=== PATIENT | male | born 1940 | race Caucasian/White ===

== ENCOUNTER → 2019-05-20 09:21 | Outpatient (CLI) | payer MEDICARE, OTHER, SELFPAY ==
--- NOTE | 2019-05-20 | DI.CT.S_ITS ---
PROCEDURE: CT CHEST WO CON INDICATIONS: LUNG NODULE TECHNIQUE: Noncontrast 2.0-2.5 mm thick sections acquired from the pulmonary apices to the posterior costophrenic angles. 7 mm thick axial MIP and 5 mm coronal and sagittal reformats were then acquired. A low radiation dose technique was utilized. COMPARISON: [facility], US, THYROID, 01/19/2017, 8:40. [facility], CT, THORAX WITHOUT CONTRAST, 08/09/2015, 9:50. [facility], CT, THORAX WITHOUT CONTRAST, 01/02/2017, 8:23. [facility], CR, CHEST 2 VIEW, 01/19/2017, 8:49. FINDINGS: Image quality: Diagnostic, given the low radiation dose technique. Lungs and pleura: No acute consolidation. Scattered subsegmental atelectasis and/or scarring. Upper lobe predominant centrilobular emphysema. Additional emphysematous changes seen in the right lung base. No pleural effusion or pneumothorax. Redemonstration of 2 mm pulmonary nodule in the subpleural right upper lobe, unchanged. Redemonstration of tree-in-bud opacities involving the posterior right upper lobe is grossly unchanged appearance presumably postinflammatory nature. 2 mm nodule seen within the left lung base image 265 series 3 appears unchanged. Mediastinum: Heart size is normal. No pericardial effusion. No mediastinal adenopathy by size criteria. Thoracic aorta and central pulmonary arteries are normal in size. Esophagus is normal in caliber. No hiatal hernia. Bones and chest wall: No suspicious bony lesions. No vertebral body compression fractures. No axillary or supraclavicular adenopathy by size criteria. Thyroid gland demonstrates heterogeneous appearance bilaterally better seen on prior comparison ultrasounds; please see reports. Abdomen: Visualized upper abdomen solid organs and bowel loops appear normal in the absence of contrast. IMPRESSION: Unchanged subpleural 2 mm bilateral pulmonary nodules as detailed above. No further followup necessary for these findings, stable. Elsewhere, no discrete pulmonary nodule or acute consolidation. As clinically warranted, continued annual lung CT screening could be performed. Upper lobe centrilobular emphysema. Fleischner Society criteria for SOLID lung nodule followup. Nodule size (mm)Low-risk patientHigh-risk patient<6 (single or multiple)No routine followup.Optional CT at 12 months. 6-8 (single or multiple)CT at 6-12 months, then optional CT at 18-24 mo.CT at 6-12 months, then CT at 18-24 months. >8 (single)CT at 3 months, PET-CT, or biopsy. Same as for low-risk pts. >8 (multiple)CT at 3-6 months, then optional CT at 18-24 mo.CT at 3-6 months, then CT at 18-24 months. Fleischner Society criteria for SUB-SOLID lung nodule followup. Solitary pure ground-glass nodules<6 mm (ground glass or part solid)No followup needed. 6 mm or larger (ground glass)CT at 6-12 months to confirm persistence, then CT every 2 years until 5 years.6 mm or larger (part solid)CT at 3-6 months to confirm persistence, then annual CT until 5 years if unchanged and solid component remains <6 mm. Multiple sub-solid nodules<6 mmCT at 3-6 months, then CT consider at 2 & 4 years for high risk patients. [address] at 3-6 months. Subsequent management based on most suspicious lesions. Recommendations do not apply to lung cancer screening, patients with immunosuppression, or patients with known primary cancer. Dictated by: Kaiden White M.D. on 05/20/2019 at 10:10 Approved by: Kaiden White M.D. on 05/20/2019 at 10:17
== END ==
PROVIDERS: PCP Physician Assistant; Visit Provider Physician Assistant
DX: R91.1 Solitary pulmonary nodule (principal); R91.8 Other nonspecific abnormal finding of lung field; J43.2 Centrilobular emphysema
CPT/HCPCS: 71250

== ENCOUNTER 2019-11-22 07:38 | Day surgery (SDC) | payer MEDICARE, OTHER, SELFPAY ==
[2019-11-22] VITALS (7 sets, daily range): BP systolic 118–152; BP diastolic 78–92; PULSE 74–88; RESP 12–18; TEMP 36.1–36.7; O2SAT 94–99; BMI 22.0
--- NOTE | 2019-11-22 | PATH_ITS ---
[facility] Accession Number: [id number] . 01 Material submitted: . PART A: colon - BIOPSY AT 40 CM PART B: colon - BIOPSY AT 50 CM PART C: colon - BIOPSY AT 20 CM PART D: rectum - RECTAL POLYPS X7 . 02 Diagnosis: A. Colon at 40 cm, Biopsy: Hyperplastic polyp. . B. Colon at 50 cm, Biopsy: Colonic mucosa with focal mucosal hyperplasia. Negative for dysplasia or malignancy. Additional step sections examined. . C. Colon at 20 cm, Biopsy: Hyperplastic polyp. . D. Rectal Polyps, Biopsies: Fragments of hyperplastic polyp (seven polyps removed). [facility] 11/24/2019 1407 Local . 02 Electronically signed: . Prosper Stauffer MD, PhD, Pathologist NPI- [id number] . 01 Gross description: . Part A: BIOPSY AT 40 CM: Received in formalin are 2 fragment(s) of hunter, soft tissue measuring 0.2 x 0.2 x 0.2 cm to 0.3 x 0.2 x 0.2 cm submitted entirely in 1 cassette(s) Part B: BIOPSY AT 50 CM: Received in formalin are 2 fragment(s) of hunter, soft tissue measuring 0.2 x 0.2 x 0.2 cm to 0.3 x 0.3 x 0.2 cm submitted entirely in 1 cassette(s) Part C: BIOPSY AT 20 CM: Received in formalin is 1 fragment(s) of hunter, soft tissue measuring 0.3 x 0.3 x 0.2 cm submitted entirely in 1 cassette(s) Part D: RECTAL POLYPS X7: Received in formalin are multiple fragment(s) of hunter, soft tissue measuring 0.1 x 0.1 x 0.1 cm to 0.3 x 0.2 x 0.2 cm submitted entirely in 1 cassette(s) /[facility] 11/22/2019 1942 Local . 02 Pathologist provided ICD-10: K63.5, K62.1 . 02 CPT . 907315, 824590, 878303, [id number] Performed at: 01 [facility] [address] [place] [address], [place], [place] [id number] MD Jimi Cedeño MD Phone: [phone] Performed at: 02 [facility] [address] [place], [place] [id number] MD Mady Bassett MD Phone: [phone]
[2019-11-22] MEDS: FLEETS ENEMA 1 EACH PR (08:15)
[2019-11-22] MEDS: SODIUM CHLORIDE 0.9% 1,000 ML 200 ML IV (09:00)
--- NOTE | 2019-11-22 09:14 | P.HP_ITS ---
History of Present Illness History of Present Illness Date Patient Seen: 11/22/19 Time Patient Seen: 09:00 Chief complaint: [id number] Narrative: The patient is a gentleman here for a screening colonoscopy. His last exam was over 15 years ago. No family history of colon cancer. No blood in his stool. Patient History Medical History Obstructive sleep apnea of adult (Chronic) Snoring (Chronic) Family & Social History Social History: household members spouse lives independently Yes caregiver/support person No Tobacco & Substance use: Tobacco type cigarettes Smoking Status Current every day smoker Smoking packs per day 1 alcohol intake current alcohol intake frequency a few times a week Substance Use Type does not use Meds Home Medications and Allergies Home Medications Medication Instructions Recorded Confirmed Type ascorbic acid (vitamin C) 500 mg PO DAILY #0 02/24/11 11/22/19 History Respironics DreamStation BIPAP #1 ea 11/30/18 11/30/18 History bupropion HCl 150 mg PO DAILY 11/22/19 11/22/19 History Allergies Allergy/AdvReac Type Severity Reaction Status Date / Time Sulfa (Sulfonamide AdvReac Unknown ITCHING Verified 11/22/19 07:55 Antibiotics) Review of Systems Review of Systems ROS: Yes All systems reviewed with the patient and are negative except as otherwise documented Exam Vital Signs (past 8 hours): - 11/22/19 08:03 Temperature 96.9 F L Pulse Rate 85 Respiratory Rate 15 Blood Pressure 152/82 H Pulse Oximetry 99 Oxygen Delivery Method Room Air Narrative Exam Narrative: Pleasant cooperative patient no apparent distress. Lungs are clear to auscultation. No rales or rhonchi. Heart regular rate and rhythm no murmur gallop. Abdomen is soft nontender without mass. The patient may have a tiny umbilical hernia (the appearance suggests a hernia but I cannot feel an actual defect). If present it is easily reducible and nontender. Patient is a lert and oriented x3. Assessment & Plan Assessment & Plan narrative: The patient for a screening colonoscopy. I have discussed the procedure with them. Risks of bleeding, perforation which would necessitate major operation, failure to find remove all lesions, the potential tattoo were all discussed. All questions were answered. They wished to proceed.
--- NOTE | 2019-11-22 09:18 | PM.PREOP ---
Pre-operative Note Interval Note History & Physical reviewed/Exam performed by Physician: Yes Changes to H&P: No ASA Class (for procedural sedation): I
[2019-11-22] MEDS: MIDAZOLAM 5 MG/5 ML VIAL IV (09:59)
[2019-11-22] MEDS: fentaNYL 250 MCG/5 ML INJ IV (10:00)
--- NOTE | 2019-11-22 10:06 | PM.OP.ENDO ---
Operative Date/Time/Diagnoses Date of procedure: 11/22/19 Time of procedure: 10:00 Pre-op diagnosis: Screening exam. Last exam over 15 years ago. Post-op diagnosis: same (Numerous polyp like lesions. Heaviest concentration the rectum. Pancolonic diverticulosis.) Procedure & Clinicians Study performed: Colonoscopy with cold biopsy Same procedure as scheduled: Yes Indications: Screening Surgeon: Brain Tovar Procedure Notes SCOAP/Timeout: Perform Procedure in detail: The patient was placed in the left lateral decubitus position and underwent IV sedation directed by the surgeon consisting of fentanyl and Versed. Digital exam was unremarkable except for small external hemorrhoid. Prostate is normal.. The scope was inserted and advanced through the rectum into the sigmoid, descending, transverse, and ascending colon. I noted polypoid lesions in the rectum as I passed through it. I also noted some abnormal folds in the sigmoid in a field of diverticuli. The mucosa was not necessarily different but the folds gave the appearance of a possible polyp and so I took single biopsies of these areas not trying to remove the entire thing. I submitted these in a separate container and if they are neoplastic patient will probably need a flexible sigmoidoscopy to completely remove them. I was very concerned given the numerous diverticuli around them that I could be potentially disrupting the mucosa of 1 of them. Thus I limited my tissue removal.. The cecum was reached identified by the ileocecal valve and the appendiceal opening. The scope was gradually brought out. No other Polyps were found. When I reach the rectum I biopsied the numerous flat irregularities I had seen on entering. These were removed. There were 7 lesions removed. If these are neoplastic patient should have a repeat colonoscopy in a year. The scope ultimately was retroflexed in the rectum. The appearance was otherwise normal. The scope was removed and the patient tolerated the procedure well. The prep was good. Scope withdrawal time: 10 minutes(19 total) Sedation minutes: 36 Findings: diverticulosis and polyp Specimen(s): other (Polyps) Complications: none Post-procedure Recommendations: Colonscopy in 5 years (In 1 year if the lesions in the rectum are neoplastic or if the lesions at 40 cm are neoplastic flex sig within 3 months to remove any residual lesion.) Plan for aftercare: Follow-up by letter/possible phone Follow up: as needed Disposition: PACU
--- NOTE | 2019-11-22 10:21 | SUR.PHASEI ---
Patient A\O x 4. Tolerating po. Denies pain and nausea.
== END 2019-11-22 10:50 | disposition home or self-care (01) ==
PROVIDERS: PCP Physician Assistant; Referring Provider Physician Assistant; Visit Provider Specialist
PROC: 0DJD8ZZ Inspection of Lower Intestinal Tract, Via Natural or Artificial Opening Endoscopic (ICD-10-PCS; CPT 45378; principal; 2019-11-22 08:45)
DX: Z12.11 Encounter for screening for malignant neoplasm of colon (principal); K57.30 Diverticulosis of large intestine without perforation or abscess without bleeding; K63.5 Polyp of colon; K62.1 Rectal polyp
CPT/HCPCS: 45380; 99152; 99153; J2250; J3010

== ENCOUNTER → 2019-12-28 13:04 | Outpatient (CLI) | payer MEDICARE, OTHER, SELFPAY ==
--- NOTE | 2019-12-28 | DI.RAD.S_ITS ---
PROCEDURE: FL BARIUM SWALLOW W SPEECH INDICATIONS: Dysphagia TECHNIQUE: Examination was conducted in conjunction with speech pathology per standard protocol. In the lateral projection, filming was performed of the patient swallowing. AP projection filming may also be performed with patient swallowing. COMPARISON: None. FINDINGS: Function: The oral preparatory phase appears normal, with early spillage of contrast material. The subsequent oral propulsive phase, pharyngeal phase, and esophageal phase of swallowing also appear normal with all proffered substances. Numerous occasions of flash laryngotracheal penetration. No definite tracheal aspiration. Severe vallecular pooling. Large amount of residue also noted within both piriform sinuses. Morphology: No cricopharyngeal bar is identified. No cervical esophageal webs. No Zenker's diverticulum. No strictures. IMPRESSION: Flash laryngeal penetration. No definite tracheal aspiration Large amount of residue and vallecular pooling. Dictated by: Kaiden White M.D. on 12/28/2019 at 14:53 Approved by: Kaiden White M.D. on 12/28/2019 at 14:54
--- NOTE | 2019-12-30 14:06 | ST.SWALLOW ---
Visit Care Team Role Provider Type Anais Holcomb MD Attending Provider Non-Staff Primary Care Provider Referring Provider Specialty: Internal Medicine Address: [address] [place] [address], [id number] Email: [email or web address] Modified Barium Swallow Study HEAD OF DATA Modified Barium Swallow Study Start: 12/28/19 15:19 Freq: Status: Active Protocol: Document 12/28/19 15:23 ZHANE (Rec: 12/28/19 15:41 ZHANE [id number]) Modified Barium Swallow Study Total Time Visit Start Time 13:30 Visit Stop Time 14:10 Total Visit Minutes [address] Anais Holcomb Setting Setting Outpatient Care Patient Information Identification Type Name,ID Card Patient History The pt is a 79-yr-old male with complaints of frequent coughing (3-4x/day) with oral intake of solids and liquids. Onset ~6 mos ago. No significant other health events at time of onset, but pt reported also having increase post-nasal drip and phlegm, which he felt was present at the time of the study. The pt is a current everyday smoker of cigarettes. PMHx significant for depression and obstructive sleep apnea. He had surgical removal of tonsils to reduce snoring >10 yrs ago. Subjective Observations The pt arrived on time and provided case history. He was informed of MBSS procedure and in agreement to proceed. Patient Positioning Position View Lat-A/P Imaging Lateral View Textures Administered Trials Presented Thin Liquid via Spoon,Thin Liquid via Cup,[place] Liquid via Spoon,[place] Liquid via Cup,Honey Liquid via Spoon, Pudding Thick Liquid via Spoon ,Regular Textures Oral Phase Source: MBSIMP (TM) (C) Bolus Specific Scoring Grid Lip Closure No Impairment (WNL) Tongue Control During Bolus Hold No Impairment (WNL) Bolus Prep/Mastication Moderate Impairment Bolus Transport/Lingual Motion Moderate Impairment A/P Lingual Propulsion Delay Yes: spillage to pharynx prior to propulsion Oral Residue Mild Impairment Residue Clearing WFL Nasal Regurgitation No Additional Oral Phase Observations Oral Peripheral Exam: Symmetrical structures, all WNL of strength, coordination and ROM. Absent uvula and tonsils. High arch. Soft palate elevates fully upon phonation. Pt wears full upper dentures. Lower teeth are natural and in adequate condition for age. Oral Phase: Pt swallowed most trials, including single cup sips of liquids, piecemeal in 2-3 swallows. Reduced lingual strength and coordination, particularly at back of tongue , and delayed swallow reflex allows for early spillage to the pharynx prior to swallow onset. Mild-moderate oral residue also escapes to pharynx post initial swallow, frequently spilling to as far as aryepiglottic folds and pyriform sinuses. With subsequent swallows, the pt is able to effectively clear oral residue. Mastication and anterior oral containment were WNL. Pharyngeal Phase Source: MBSIMP (TM) (C) Bolus Specific Scoring Grid Delayed Initiation of Pharyngeal Swallow Yes Soft Palate Elevation No Impairment (WNL) Residue Along the Tongue Base Yes: Moderate, consistent Clearance of Residue Along Tongue Base Moderate Impairment Laryngeal Elevation WFL Anterior Hyoid Movement Moderate Impairment Epiglottic Range of Motion Moderate Impairment Vallecular Residue Yes Clearance of Vallecular Residue Severe Impairment Pharyngeal Stripping Wave Moderate Impairment Posterior Pharyngeal Wall Residue Yes Clearance of Posterior Pharyngeal Wall Moderate Impairment Residue Upper Esophageal Sphincter Opening Mild Impairment Residue in the Pyriform Sinuses Yes Clearance of Residue in the Pyriform Moderate Impairment Sinuses Pharyngoesophageal Backflow Observed No Additional Pharyngeal Phase Observations Flash penetration observed with single sips of thin liquid, PAS-2. Penetration of thin liquid with consecutive sips and penetration of pharyngeal residue observed intermittently throughout the study, PAS-3. No aspiration observed. Significant pharyngeal residue was present throughout the study with all consistencies. Contributors to this residue include spillage from of oral cavity residue post-swallow; minimal anterior propulsion with subsequent incomplete epiglottic inversion ( epiglottis inverts to horizontal position); minimal pharyngeal stripping wave with reduced contact between base of tongue and pharyngeal contractors; and limited extent and duration of UES opening. The pt required multiple swallows to attempt to clear residue, which was not fully successful. A/P View Textures Administered Trials Presented [place] Liquid via Cup,Pudding Thick Liquid via Spoon,Barium Tablet A/P View Observations Pharyngeal Contraction Moderate Impairment Esophageal Function Slowed Clearing,Poor Motility, Stasis Additional Observations Bilateral bulging of both pharyngeal masterson Esophageal Observations Esophageal Function Slowed clearance of boluses indicating poor motility. 13mm barium tablet cleared to stomach with aid of additional swallows of liquid and saliva . Clinical Impressions Dysphagia Type Moderate Oropharyngeal Dysphgai Findings Mild-moderate oral dysphgia secondary to reduced lingual strength and coordination resulting in early spillage of bolus and oral residue to pharynx. Oral residue requires multiple swallows to effectively clear. Moderate pharyngeal dysphagia secondary to reduced strength, coordination and/or ROM of anterior hyolaryngeal propulsion, pharyngeal contraction and extent and duration of UES opening results in significant pharyngeal residue that does not fully clear with multiple swallows, and incomplete airway closure allowing for penetration of thin liquids and pharyngeal residue. The pt is at moderate risk of aspiration and requires use of compensatory swallow strategies to reduce this risk . Dysphagia therapy is recommended to increase swallow function and safety. Also recommend GI consultation to assess esophageal swallow phase and ENT consultation to address pt's complaints of excessive phlegm. The pt was educated on results of study and recommendations, including compensatory swallow strategies and outpatient therapy, which he verbalized understanding. Rehabilitation Potential Good Patient Appropriate for Therapy Yes Recommendations Diet Liquids Order Thin Diet Order Regular Medication Recommendation As Tolerated Aspiration Precautions Recommended Precautions Upright at 90 Degrees,Small Bites/Sips,Effortful Swallow, Double Swallow Treatment Plan Therapy Recommendations Outpatient Speech Therapy,Oral Motor Exercises,Lingual Exercises,Base of Tongue Exercises,Compensatory Strategy Education,Other Additional Therapy Recommendations Exercises to strengthen pharyngeal and laryngeal musculature Recommended Referrals GI Consult,ENT Consult Compensatory Strategies Recommendations Sitting Upright (90 deg), Double Swallow,Small Bites and Sips Short Term Goals 1. The pt will perform compensatory swallow strategies to reduce risk of aspiration. 2. The pt will perform exercises to increase strength , coordination and ROM of swallow musculature and increase safety and comfort with oral intake. Single Fold Machine Operator Goals 1. The pt will demonstrate independent use of compensatory swallow strategies and exercises to increase swallow safety and comfort. 2. The pt will tolerate least restrictive diet to meet his nutrition and hydration needs. Placement Recommendation After Discharge Home
== END ==
PROVIDERS: PCP Internal Medicine; Referring Provider Internal Medicine; Visit Provider Internal Medicine
DX: R13.10 Dysphagia, unspecified (principal)
CPT/HCPCS: 74230; 92611

== ENCOUNTER → 2019-12-29 07:05 | Outpatient (CLI) | payer MEDICARE, OTHER, SELFPAY ==
--- NOTE | 2019-12-29 | DI.MRI.S_ITS ---
PROCEDURE: MR HEAD/BRAIN WO/W CON INDICATIONS: DIPLOPIA TECHNIQUE: Noncontrast axial T1 spin echo, axial T2 fast spin echo, sagittal and axial FLAIR, coronal T2 fast spin echo, axial gradient echo, axial diffusion and ADC through the brain. After the administration of contrast, axial and coronal T1 spin echo with fat saturation through the brain. COMPARISON: None. FINDINGS: Image quality: Excellent. CSF spaces: Basal cisterns are patent. There is a 1.9 cm arachnoid cyst in the right posterior fossa at the midline. No extra-axial fluid collections. Ventricles are normal in size and shape. Brain: There is an old lacunar infarct in the left thalamus. No midline shift. No intracranial bleeds or masses. No abnormal intracranial enhancement. There is mild cerebral volume loss for age. There are moderate chronic small vessel ischemic changes in periventricular white matter and edison. The brainstem appears normal. Diffusion-weighted images demonstrate no acute ischemic insults. No chronic ischemic insults. Normal intravascular flow voids are present. Skull and face: Calvarial marrow is normal in signal. Orbits appear normal. Sinuses: Small mucous retention cyst in the ethmoid sinuses bilaterally. The mastoids appear clear. IMPRESSION: 1. No MRI findings to explain diplopia. 2. 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 3. No acute intracranial abnormalities. 4. Cerebral volume loss and chronic microvascular ischemic changes. 5. Small ethmoid sinus mucus retention cyst. Dictated by: Vito Sheth M.D. on 12/29/2019 at 9:33 Approved by: Vito Sheth M.D. on 12/29/2019 at 14:56
--- NOTE | 2019-12-29 | DI.US.S_ITS ---
PROCEDURE: US CAROTID DOPPLER BI INDICATIONS: DIPLOPIA TECHNIQUE: Color and pulse Doppler interrogation was performed of both carotid systems, with image documentation and velocity measurements. COMPARISON: None. FINDINGS: Stenosis calculations are based on SRU (Society of Radiologists in Ultrasound) criteria. Right side: Brachial blood pressure: 153/84 mm Hg. Common carotid artery peak systolic velocity: 82 cm/sec. Internal carotid artery peak systolic velocity: 75 cm/sec. Internal carotid artery end diastolic velocity: 26 cm/sec. External carotid artery peak systolic velocity: 79 cm/sec. ICA/CCA peak systolic ratio: 0.9. Cheema scale imaging description: Mild calcific plaque Percent internal carotid artery stenosis: Less than 50% stenosis.. Vertebral artery: Flow direction is antegrade. Left side: Brachial blood pressure: 143/84 mm Hg. Common carotid artery peak systolic velocity: 93 cm/sec. Internal carotid artery peak systolic velocity: 70 cm/sec. Internal carotid artery end diastolic velocity: 27 cm/sec. External carotid artery peak systolic velocity: 80 cm/sec. ICA/CCA peak systolic ratio: 0.8. Cheema scale imaging description: Mild calcific plaque Percent internal carotid artery stenosis: Less than 50% stenosis. Vertebral artery: Flow direction is antegrade. IMPRESSION: Less than 50% stenosis at the proximal internal carotid arteries bilaterally. Dictated by: Jonathan Gannon M.D. on 12/29/2019 at 10:48 Approved by: Jonathan Gannon M.D. on 12/29/2019 at 10:50
--- NOTE | 2019-12-29 | DI.MRI.S_ITS ---
PROCEDURE: MR ANGIO HEAD WO CON INDICATIONS: DIPLOPIA TECHNIQUE: Noncontrast axial 3-D [id number] MR angiogram, with 3-dimensional maximum intensity projection (MIP) reformats of the internal carotid arteries and posterior circulation then performed. COMPARISON: [facility], , MR HEAD/BRAIN WO/W CON, 12/29/2019, 7:54. FINDINGS: Image quality: Excellent. Anterior circulation: Intracranial internal carotid arteries demonstrate normal size and intraluminal flow signal. The flow within the paired anterior cerebral arteries is normal and symmetric. The flow within the middle cerebral arteries is normal and symmetric. The anterior communicating artery is seen. No stenoses, occlusions, or aneurysms. Posterior circulation: Visualized portions of the vertebral arteries demonstrate normal caliber, and join to form a normal appearing basilar artery. There is origin of the left posterior cerebral artery. The flow within the posterior cerebral arteries is normal and symmetric. No stenoses, occlusions, or aneurysms. IMPRESSION: 1. No significant stenosis or occlusion in anterior or posterior circulations. Dictated by: Vito Sheth M.D. on 12/29/2019 at 10:09 Approved by: Vito Sheth M.D. on 12/29/2019 at 15:02
== END ==
PROVIDERS: PCP Internal Medicine; Referring Provider Internal Medicine; Visit Provider Internal Medicine
DX: H53.2 Diplopia (principal); J34.1 Cyst and mucocele of nose and nasal sinus; I65.23 Occlusion and stenosis of bilateral carotid arteries
CPT/HCPCS: 70544; 70553; 93880; A9579

== ENCOUNTER → 2020-05-15 13:04 | Outpatient (CLI) | payer MEDICARE, OTHER, SELFPAY ==
--- NOTE | 2020-05-15 | DI.RAD.S_ITS ---
PROCEDURE: FL BARIUM SWALLOW W SPEECH INDICATIONS: Dysphagia, unspecified COMPARISON: TECHNIQUE: Examination was conducted in conjunction with speech pathology per standard protocol. In the lateral projection, filming was performed of the patient swallowing. AP projection filming may also be performed with patient swallowing. COMPARISON: [facility], , [place] BARIUM SWALLOW W SPEECH, 12/28/2019, 12:33. FINDINGS: Function: The oral preparatory phase appears normal, with proper containment. The subsequent oral propulsive phase, pharyngeal phase, and esophageal phase of swallowing also appear normal with all proffered substances. Tracheal aspiration is present within thin liquid barium. There is a large amount of residue present. Morphology: No cricopharyngeal bar is identified. No cervical esophageal webs. No Zenker's diverticulum. No strictures. IMPRESSION: Tracheal aspiration Dictated by: Kaiden White M.D. on 05/15/2020 at 14:57 Approved by: Kaiden White M.D. on 05/15/2020 at 14:58
--- NOTE | 2020-05-16 16:41 | ST.SWALLOW ---
Visit Care Team Role Provider Type Anais Holcomb MD Attending Provider Non-Staff Primary Care Provider Referring Provider Specialty: Internal Medicine Address: [address] [place] [address], [address] Email: [email or web address] Modified Barium Swallow Study GLASS SANDER Modified Barium Swallow Study Start: 05/16/20 08:43 Freq: Status: Active Protocol: Document 05/15/20 12:41 LNK (Rec: 05/16/20 13:27 LNK [id number]) Modified Barium Swallow Study Total Time Visit Start Time 13:30 Visit Stop Time 14:00 Total Visit Minutes [address] Sayda Holcomb Reason for Referral dysphagia Setting Setting Outpatient Care Patient Information Identification Type Name,Date of Patient History The pt is a 79-yr-old male who was seen 12/28/19 for MBSS evaluation. Pt then had and continues to have c/o coughing particularly with food, if talking while eating, and if not sitting fully upright. MBS results revealed mild- moderate oral and moderate pharyngeal dysphagia characterized by early spillage from oral to pharyngeal cavities, incomplete airway closure, incomplete epiglottic inversion, reduced duration of UES extension and resulting in penetration of contrast without aspiration, and extensive pharyngeal residue. The pt reports occasional coughing up of food residue at night when performing oral care. The pt has been seen for Dysphagia treatment since 03/07. Therapeutic exercises were performed to improve hyolaryngeal elevation and forward movement and increase stregth of the tongue base. These exercises are designed to improve airway protection. Subjective Observations The pt was seated in the flouroscopy chair. He was familiar with the procedure and instructions, which were reviewed. Pt agreed to proceed . Patient Positioning Position View Lateral Imaging Lateral View Textures Administered Trials Presented Thin Liquid via Spoon,Thin Liquid via Cup,[place] Liquid via Spoon,[place] Liquid via Cup,Regular Textures,Barium Tablet Oral Phase Source: MBSIMP (TM) (C) Bolus Specific Scoring Grid Lip Closure WFL Tongue Control During Bolus Hold WFL Bolus Prep/Mastication WFL Bolus Transport/Lingual Motion WFL A/P Lingual Propulsion Delay Yes Nasal Regurgitation No Additional Oral Phase Observations Premature spillage into pharynx Pharyngeal Phase Source: MBSIMP (TM) (C) Bolus Specific Scoring Grid Delayed Initiation of Pharyngeal Swallow Yes: Premature spillage to the valeculla. Mild delay Soft Palate Elevation WFL Tongue Base Strength/Range of Motion Severe Impairment Residue Along the Tongue Base Yes Clearance of Residue Along Tongue Base Moderate Impairment Laryngeal Elevation Minimal Impairment Anterior Hyoid Movement Severe Impairment Epiglottic Range of Motion Severe Impairment Vallecular Residue Yes Clearance of Vallecular Residue Severe Impairment Laryngeal Vestibular Closure Moderate Impairment Pharyngeal Stripping Wave Severe Impairment Posterior Pharyngeal Wall Residue Yes Clearance of Posterior Pharyngeal Wall Moderate Impairment Residue Upper Esophageal Sphincter Opening Minimal Impairment Residue in the Pyriform Sinuses Yes Clearance of Residue in the Pyriform Moderate Impairment Sinuses Esophageal Clearance Upright Position WFL Additional Pharyngeal Phase Observations The pt presented with moderate to severe pharyngeal phase dysphagia. The pt aspirated ~ 7 times during the evaluation. For the first teaspoon, there was marcela aspiration noted. Other instances of aspiration occurred with pharyngeal residue pushed into the vestibule. Aspiration also occurred with thin liquids as well as with nectar thick liquids. Hyolaryngeal elevation was WFL; however there was no hyoid excursion forward. This prevents the forward movement needed in order to invert the epiglottis fully. The pt's epiglottis did not invert completely during the MBS for any PO trial. Rather the tip of the epiglottis curled up against the posterior pharyngeal wall, unable to adequately seal the laryngeal vestibule. Additionally, there was minimal to no pharyngeal constriction to control the bolus through the pharynx to the UES. There was no observed constriction of the medial or inferior constrictors. The superior constrictor was observed to be weakened. Significant pharyngeal pooling . The pt was cued to swallow following each initial swallow 3-4x more per bolus in order to clear some of the residue. When the pt was cued for additional swallows, he reported that he felt that there was nothing in his throat to swallow; but he assumed there was residue as he was being cued so often. When the pt aspirated, he cleared his throat, but did not cough. These observations may indicate reduction in pharyngeal sensation. Finally, when the pt was swallowing liquids, there was a significant amount of air swallowed as well. The pt reported that he is burping all the time'. A/P View Clinical Impressions Dysphagia Type pharyngeal dysphagia Findings When the results of the current MBS were compared to the initial MBS in December 2019. There appears to be a significant regression of overall swallowing ability, despite therapeutic intervention. Currently, aspiration is occurring more frequently, compared to no aspiration initially; there is a minimal to no epiglottic inversion, significantly more residue throughout the pharynx , reduced pharyngeal constriction; especially the medial and inferior constrictor muscles. During the current MBS, trial therapeutic strategies were tried but not demonstrated to be effective. The pt reported no sensation of pharyngeal residue, nor did he respond to aspiration with coughing. He needed 3-4 swallows to clear (partially) the residue in his pharynx. Given the results and clinical impressions presented above, a referral to a neurologist is recommended to determin if there is a neuomuscular component to the regression of pt's swallowing. Patient Appropriate for Therapy Yes Recommendations Diet Liquids Order Thin Diet Order Mechanical Soft Medication Recommendation As Tolerated Additional Dietary Needs Controlled Sips,No Straws, Reminders to Use Strategies Aspiration Precautions Recommended Precautions Upright at 90 Degrees, Alternate Liquids/Solids,Small Bites/Sips,Effortful Swallow, Double Swallow,Supraglottic Swallow,Liquids from Cup Treatment Plan Therapy Recommendations Outpatient Speech Therapy, Lingual Exercises,Base of Tongue Exercises,Compensatory Strategy Education Recommended Referrals Neurology Compensatory Strategies Recommendations Sitting Upright (90 deg), Double Swallow,Supraglottic Swallow,No Straw,Liquids from Cup,Small Bites and Sips, Alternate Liquids/Solids Short Term Goals 1. The pt will perform compensatory swallow strategies independently as needed to reduce risk of aspiration. 2. The pt will perform exercises to increase strength , coordination and ROM of swallow musculature and increase safety and comfort with oral intake. Cork Compounder Goals The pt will tolerate regular texture and thin liquids without overt s/sx of aspiration and with ease and confidence WNL.
== END ==
PROVIDERS: PCP Internal Medicine; Referring Provider Internal Medicine; Visit Provider Internal Medicine
DX: R13.10 Dysphagia, unspecified (principal); J98.8 Other specified respiratory disorders
CPT/HCPCS: 74230; 92611

== ENCOUNTER 2020-06-04 08:30 | Outpatient (RCR) | payer MEDICARE, OTHER, SELFPAY ==
--- NOTE | 2020-03-07 18:02 | ST.OPIE ---
Visit Care Team Role Provider Type Anais Holcomb MD Attending Provider Non-Staff Primary Care Provider Referring Provider Specialty: Internal Medicine Address: [address] [place] [address], [id number] Email: [email or web address] Speech-Language Pathology Initial Evaluation [employer] Clinical Swallow Evaluation Start: 03/07/20 15:35 Freq: Status: Active Protocol: Document 03/07/20 15:36 ZHANE (Rec: 03/07/20 17:35 ZHANE [email or web address]) Clinical Swallow Evaluation Session Time Visit Start Time 15:30 Visit Stop Time 16:00 Total Visit Minutes 30 Visit Information Visit Number 1 Plan of Care Dates 03/07/20 - 06/07/20 Insurance Information Medicare Referral Referring Physician Dr. Anais Holcomb Reason for Referral Dysphagia Setting Assessment Location Outpatient Care Visit Type Note Type Initial Evaluation Next Note Type Next Note Type Treatment Note Patient Information Identification Type Name,ID Card History The pt is a 79-yr-old male who was seen 12/28/19 for MBSS evaluation by this [employer]. Pt then had and continues to have c/o coughing particularly with food, if talking while eating, and if not sitting fully upright. MBS results revealed mild-moderate oral and moderate pharyngeal dysphagia characterized by early spillage from oral to pharyngeal cavities, incomplete airway closure, incomplete epiglottic inversion, reduced duration of UES extension and resulting in penetration of contrast without aspiration, and extensive pharyngeal residue. The pt reports occasional coughing up of food residue at night when performing oral care. Subjective Observations The pt arrived on time and recognized the clinician from MBS. He provided updated case history, reporting no significant changes since MBS. Evaluation Liquids Trialed Thin Solids Trialed Dysphagia Mechanical, Mechanical Soft,Regular Administration Type Cup Single Sip,Cup Consecutive Sips,Self-Feeding Oral Impairment Mildly Impaired Oral Strategies Upright at 90 degrees Oral Phase Comments Good oral containment without abnormal residue. Pt required piece-meal swallow with large bites/sips. Normal mastication , intentionally extended for ease and safety of swallow. Occasional mild throat clearing prior to swallow with mixed texture indicates continued early spillage to pharynx, consistent with MBS findings. Pharyngeal Impairment Moderately Impaired Pharyngeal Strategies Sitting Upright (90 deg), Double Swallow,Small Bites and Sips Pharyngeal Phase Comments Occasional throat clearing before, during and after several trials, both liquids and solids. Pt c/o sticking sensation x1 which improved with liquid wash. Findings Dysphagia Type Mild Oral and Moderate Pharyngeal Dysphagia Rehabilitation Potential Excellent Impressions The pt presents with dysphagia symptoms consistent with MBS report. Able to tolerate regular texture and thin liquids with occasional throat clearing in clinical trials, indicating mild risk of aspiration. Risk reduces with bolt upright position, small bites/sips, solids chewed well , double swallow and liquid wash at end of intake. Diet Recommendations Liquids Order Thin Diet Order Regular Medication Recommendations As Tolerated Aspiration Precautions Recommended Precautions Upright at 90 Degrees,Small Bites/Sips,Effortful Swallow, Double Swallow Additional Precautions Supersupraglottic swallow may be beneficial as needed Treatment Plan Placement Recommendations after Home Discharge Appropriate for Therapy Yes Therapy Recommendations 1. The pt will perform compensatory swallow strategies independently as needed to reduce risk of aspiration. 2. The pt will perform exercises to increase strength , coordination and ROM of swallow musculature and increase safety and comfort with oral intake. Dysphagia Goals The pt will tolerate regular texture and thin liquids without overt s/sx of aspiration and with ease and confidence WNL. [employer] Follow Up 1x/wk for 1-2 visits; 1 visit every 2-3 wks.
--- NOTE | 2020-03-14 10:59 | ST.IPDYTX ---
Visit Care Team Role Provider Type Anais Holcomb MD Attending Provider Non-Staff Primary Care Provider Referring Provider Specialty: Internal Medicine Address: [address] [place] [address], [id number] Email: [email or web address] Dysphagia Treatment SMELTER CHARGER Dysphagia Treatment Start: 03/07/20 15:35 Freq: Status: Active Protocol: Document 03/14/20 10:51 ZHANE (Rec: 03/14/20 10:59 ZHANE [email or web address]) Dysphagia Treatment Session Time Visit Start Time 10:15 Visit Stop Time 10:50 Total Visit Minutes 35 Visit Information Visit Number 2 Plan of Care Dates 03/07/20 - 06/07/20 Insurance Information Medicare Setting Assessment Location Outpatient Care Visit Type Note Type Treatment Note Next Note Type Next Note Type Treatment Note Patient Information Identification Type Name,ID Card Subjective Observations The pt arrived on time. Reported compliance with HEP and continued coughing with oral intake but improvement since starting exercises. He had questions regarding some of the exercises. Treatment Liquids Trialed Thin Solids Trialed Mechanical Soft,Regular Administration Type Cup Single Sip,Cup Consecutive Sips,Self-Feeding Oral Strategies Upright at 90 degrees Pharyngeal Strategies Sitting Upright (90 deg), Double Swallow,Small Bites and Sips Treatment Activities Addressed pt's questions with clarified instruction on exercises. Pt completed exercises as prescribed, demonstrating good understanding. Improved ability with Brenda maneuver observed, with minimal protrusion of tongue tip between teeth. Assessed pt's swallow safety with crumbly cookie and thin liquid from cup. No overt s/sx of aspiration observed. Pt did talk while eating cookie x1. Education provided RE general aspiration risks/ precautions with instruction to avoid talking with food in mouth. Pt verbalized understanding and refrained from talking with subsequent trials. Assessment Patient Response to Treatment Excellent Rehab Potential Excellent Assessment of Improvement Pt demonstrates good understanding of and compliance with HEP, able to perform all exercises as prescribed. No overt s/sx of aspiration with limited trials today. Pt was responsive to education on aspiration risks/ precautions and demonstrated compliance. He is responding well to treatment, observing reduced coughing with intake, although occasional coughing persists. He exhibits excellent awareness and self- monitoring skills. Diet Recommendations Recommendations Continue Current Diet Liquids Order Thin Diet Order Regular Medication Recommendations As Tolerated Aspiration Precautions Recommended Precautions Upright at 90 Degrees,Small Bites/Sips,Effortful Swallow, Double Swallow Additional Precautions Supersupraglottic swallow as needed Treatment Plan Placement Recommendation after Discharge Home Appropriate for Continued Therapy Yes Therapy Recommendations 1. The pt will perform compensatory swallow strategies independently as needed to reduce risk of aspiration. 2. The pt will perform exercises to increase strength , coordination and ROM of swallow musculature and increase safety and comfort with oral intake. Dysphagia Goals The pt will tolerate regular texture and thin liquids without overt s/sx of aspiration and with ease and confidence WNL. Follow Up Plan F/U in 2 wks Referrals/Other Recommended Referrals GI Consult,ENT Consult
--- NOTE | 2020-04-04 09:21 | ST.IPDYTX ---
Visit Care Team Role Provider Type Anais Holcomb MD Attending Provider Non-Staff Primary Care Provider Referring Provider Specialty: Internal Medicine Address: [address] [place] [address], [id number] Email: [email or web address] Dysphagia Treatment BRIDGE CRANE OPERATOR Dysphagia Treatment Start: 03/07/20 15:35 Freq: Status: Active Protocol: Document 04/04/20 09:12 ZHANE (Rec: 04/04/20 09:21 ZHANE [email or web address]) Dysphagia Treatment Session Time Visit Start Time 08:30 Visit Stop Time 09:05 Total Visit Minutes 35 Visit Information Visit Number 3 Plan of Care Dates 03/07/20 - 06/07/20 Insurance Information Medicare Setting Assessment Location Outpatient Care Visit Type Note Type Treatment Note Next Note Type Next Note Type Treatment Note Patient Information Identification Type Name,ID Card Subjective Observations The pt arrived on time. Reported compliance with HEP and much improved swallow, experiencing only 2 episodes of coughing in the last week and reduced, but still present , sticking sensation. Treatment Liquids Trialed Thin Solids Trialed Mechanical Soft,Regular Administration Type Cup Single Sip,Cup Consecutive Sips,Self-Feeding Oral Strategies Upright at 90 degrees Pharyngeal Strategies Sitting Upright (90 deg), Double Swallow,Small Bites and Sips Treatment Activities Education RE potential etiology of dysphagia, swallow exercises and their specific targets toward swallow function was provided in response to pt questions. Oral and animated demonstration was provided RE normal and disordered swallow. Pt verbalized understanding and appreciation of explanations. Assessed pt's swallow with trials of diced fruit, dry cracker and thin liquid. The pt exhibited occasional throat clearing as well as mild cough x1 when talking while eating. The pt reported sticking sensation ~50% of the time, which he said was significantly less than at [facility] . Skilled feedback and recommendations for safety provided. Pt verbalized understanding and agreement with recommendations. Assessment Patient Response to Treatment Excellent Rehab Potential Excellent Assessment of Improvement Pt demonstrates good understanding of and compliance with HEP, able to perform all exercises as prescribed. No overt s/sx of aspiration with limited trials today. Pt was responsive to education on aspiration risks/ precautions and demonstrated compliance. He is responding well to treatment, observing reduced coughing with intake, although occasional coughing persists. He exhibits excellent awareness and self- monitoring skills. Consulted with pt on POC. Pt requested to continue as we have for a couple more months to follow up on progress and address changes and questions in the process. Agreed to visits every 3 weeks. Diet Recommendations Recommendations Continue Current Diet Liquids Order Thin Diet Order Regular Medication Recommendations As Tolerated Aspiration Precautions Recommended Precautions Upright at 90 Degrees,Small Bites/Sips,Effortful Swallow, Double Swallow Additional Precautions Supersupraglottic swallow as needed Treatment Plan Placement Recommendation after Discharge Home Appropriate for Continued Therapy Yes Therapy Recommendations 1. The pt will perform compensatory swallow strategies independently as needed to reduce risk of aspiration. 2. The pt will perform exercises to increase strength , coordination and ROM of swallow musculature and increase safety and comfort with oral intake. Dysphagia Goals The pt will tolerate regular texture and thin liquids without overt s/sx of aspiration and with ease and confidence WNL. Follow Up Plan 1 visit every 3 wks for 3 visits Referrals/Other Recommended Referrals GI Consult,ENT Consult
--- NOTE | 2020-04-24 14:24 | ST.IPDYTX ---
Visit Care Team Role Provider Type Anais Holcomb MD Attending Provider Non-Staff Primary Care Provider Referring Provider Specialty: Internal Medicine Address: [address] [place] [address], [id number] Email: [email or web address] Dysphagia Treatment BRASS FINISHER Dysphagia Treatment Start: 03/07/20 15:35 Freq: Status: Active Protocol: Document 04/24/20 13:25 ZHANE (Rec: 04/24/20 13:28 ZHANE [email or web address]) Dysphagia Treatment Session Time Visit Start Time 12:30 Visit Stop Time 13:05 Total Visit Minutes 35 Visit Information Visit Number 4 Plan of Care Dates 03/07/20 - 06/07/20 Insurance Information Medicare Setting Assessment Location Outpatient Care Visit Type Note Type Treatment Note Next Note Type Next Note Type Treatment Note Patient Information Identification Type Name,ID Card Subjective Observations The pt arrived on time. Reported compliance with HEP and reduced coughing with oral intake. Occasional choking sensation continues to occur. Pt stated, I've had problems for so long, I'm not sure what normal swallowing feels like. Treatment Treatment Activities Pt's questions RE POC and HEP addressed. Discussed and recommended follow-up MBS as instrumental evaluation to best determine progress made, benefit of swallow exercise program, and to guide POC. The pt was in agreement. Reviewed findings of previous MBS with pt. Discussed the recommended referral to GI for esophageal evaluation given the possible slowed clearing seen during MBS. The pt has not received information about this. Agreed BRASS FINISHER would request orders for both Barium and Modified Barium swallow studies from PCP Dr. Anais Holcomb to guide POC. Educated pt in GERD s/sx. The pt experiences frequent throat clearing and occasional coughing, although he acknowledged he is a current heavy smoker, which could contribute. Anticipate evaluation with GI will inform whether or not pt has GERD. Assessment Patient Response to Treatment Excellent Rehab Potential Excellent Assessment of Improvement Pt demonstrates good understanding of and compliance with HEP, able to perform all exercises as prescribed. He is responding well to treatment, observing reduced coughing with intake, although occasional coughing persists. He exhibits excellent awareness and self- monitoring skills. Pt was agreeable to recommendations for further and follow-up evaluations to guide POC. Diet Recommendations Recommendations Continue Current Diet Liquids Order Thin Diet Order Regular Medication Recommendations As Tolerated Aspiration Precautions Recommended Precautions Upright at 90 Degrees,Small Bites/Sips,Effortful Swallow, Double Swallow Additional Precautions Supersupraglottic swallow as needed Treatment Plan Placement Recommendation after Discharge Home Appropriate for Continued Therapy Yes Therapy Recommendations 1. The pt will perform compensatory swallow strategies independently as needed to reduce risk of aspiration. 2. The pt will perform exercises to increase strength , coordination and ROM of swallow musculature and increase safety and comfort with oral intake. Dysphagia Goals The pt will tolerate regular texture and thin liquids without overt s/sx of aspiration and with ease and confidence WNL. Follow Up Plan 1 visit every 3 wks for 3 visits Referrals/Other Recommended Referrals GI Consult
--- NOTE | 2020-05-16 17:31 | ST.IPDYTX ---
Visit Care Team Role Provider Type Anais Holcomb MD Attending Provider Non-Staff Primary Care Provider Referring Provider Specialty: Internal Medicine Address: [address] [place] [address], [id number] Email: [email or web address] NEUROSCIENTIST Dysphagia Treatment NEUROSCIENTIST Dysphagia Treatment Start: 03/07/20 15:35 Freq: Status: Active Protocol: Document 05/16/20 11:33 ZHANE (Rec: 05/16/20 11:48 [email or web address] [email or web address]) Dysphagia Treatment Session Time Visit Start Time 10:30 Visit Stop Time 11:20 Total Visit Minutes 50 Visit Information Visit Number 5 Plan of Care Dates 03/07/20 - 06/07/20 Insurance Information Medicare Setting Assessment Location Outpatient Care Visit Type Note Type Treatment Note Next Note Type Next Note Type Treatment Note Patient Information Identification Type Name,ID Card Subjective Observations The pt arrived on time. The pt stated he has an appointment with PCP, Dr. Anais Holcomb, next week. Follow-up MBS was administered yesterday revealing worsened overall function, including increased aspiration and reduced pharyngeal and laryngeal sensation despite these 2 months of dysphagia therapy and the pt's compliance with HEP. (See designated report for details. ) Attempted to reach Dr. Holcomb by phone to discuss, but she is out of the clinic today. Message left requesting call back tomorrow. Treatment Treatment Activities The pt was educated on MBS findings with video review of both first MBS (12/29) and yesterday's study and was informed of attempt to consult with Dr. Holcomb. He verbalized understanding and agreement with consultation. Discussed with pt his medical history in effort to reveal possible comorbidity that may explain decline in swallow function/safety. The pt reported new (the last ~2.5 mos) achiness in right shoulder that limits his ROM and sometimes extends down his arm. He assumes this is arthritis but will discuss with Dr. Holcomb next week. As a result of this pain, he is using his left hand more and sometimes needs to support his right hand with left when holding a cup or other objects . The pt also noted decreased balance in the last ~2 yrs, noticeable even when walking and preventing him from activities such as working on his roof. The pt has a long history of sleep apnea (dx early 1980s) which is now well managed with C-pap. The only prescription medication the pt takes is Citalopram for depression. We performed a cursory Internet search of side effects. The only ones that the pt experiences that may contribute to dysphagia and new right shoulder pain were stiff/rigid muscles and dry mouth. The pt denied all other listed side effects, with exception to poor sleep, which is attributed to existing diagnosis of sleep apnea. The pt's HEP was expanded to include a greater variety of exercises targeting hyolaryngeal elevation and anterior excursion to increase ariway closure, epiglottic inversion, and UES opening to reduce pharyngeal residue, as well as exercises to increase strength and ROM of pharyngeal constrictors in order to reduce pharyngeal residue. The pt verbalized and demonstrated understanding ( via performance) of all new exercises. During Hector maneuver, the pt was able to elevate larynx but reduced strength to maintain elevation >1-2 sec. Volitional tongue retraction was also difficult for him to perform but improved with use of an oral manipulable (toothbrush) on tongue blade, which the pt was then able to extend and retract with tongue. The pt is familiar with super- supraglottic swallow strategy, which is recommended to be continued with oral intake to reduce risk of aspiration. Assessment Patient Response to Treatment Excellent Rehab Potential Excellent Assessment of Improvement Results of yesterday's MBS indicate regression in pt's swallow function with increased aspiration. The pt aspirated small amounts of both thin and nectar-thick liquids as well as pharyngeal residue. Pharyngeal and laryngeal exercises have not been effective in helping this patient. Referral to Neurology was recommended by administering NEUROSCIENTIST, and this NEUROSCIENTIST is in agreement to determine if a neuromuscular component is present. Modification of exercise plan was made in order to approach muscular strengthening in a new way; however, it is not anticipated that significant progress with be made via strength training. Compensatory swallow strategies will be targeted to reduce the pt's risk of aspiration with oral intake. Soft, moist liquids are recommended to easy clearance through pharynx and into esophagus. No significant benefit was seen with thickened vs thin liquids, therefore thickening of liquids is not recommended at this time. Diet Recommendations Recommendations Downgrade Diet Order Liquids Order Thin Diet Order Dysphagia Mechanical Medication Recommendations As Tolerated Additional Dietary Needs Single Sips Aspiration Precautions Recommended Precautions Upright at 90 Degrees,Small Bites/Sips,Effortful Swallow, Double Swallow Additional Precautions Supersupraglottic swallow Treatment Plan Placement Recommendation after Discharge Home,Outpatient Therapy Appropriate for Continued Therapy Yes Therapy Recommendations 1. The pt will perform compensatory swallow strategies independently to reduce risk of aspiration. 2. The pt will perform exercises to increase strength , coordination and ROM of swallow musculature and increase safety and comfort with oral intake. Dysphagia Goals The pt will tolerate least restrictive diet to meet his nutrition and hydration needs. Follow Up Plan Follow up after appt with PCP Referrals/Other Recommended Referrals Neurology
--- NOTE | 2020-06-04 10:20 | ST.IPDYTX ---
Visit Care Team Role Provider Type Anais Holcomb MD Attending Provider Non-Staff Primary Care Provider Referring Provider Specialty: Internal Medicine Address: [address] [place] [address], [id number] Email: [email or web address] YEAST FERMENTATION ATTENDANT Dysphagia Treatment YEAST FERMENTATION ATTENDANT Dysphagia Treatment Start: 03/07/20 15:35 Freq: Status: Active Protocol: Document 06/04/20 08:33 ZHANE (Rec: 06/04/20 09:25 [email or web address] [email or web address]) Dysphagia Treatment Session Time Visit Start Time 08:30 Visit Stop Time 08:55 Total Visit Minutes 25 Visit Information Visit Number 6 Plan of Care Dates 06/04/20 - 08/28/20 Insurance Information Medicare Visit Type Note Type Progress Note Next Note Type Next Note Type Treatment Note Patient Information Identification Type Name,ID Card Subjective Observations The pt arrived on time. Reported that during visit with Dr. Holcomb she recommended referral to ENT, which the pt is agreeable to but has not yet set up. Although he had a strong coughing episode a week ago, the pt feels that there is some improvement in swallowing . Overall, coughing episodes have diminished from 3-4/wk to just this one last week over a 3-wk duration. He does report frequent throat clearing throughout the day, not associated with oral intake. Treatment Treatment Activities Discussed pt's recent visit with Dr. Holcomb and her ENT recommendation. Education was provided RE ENT services, including laryngoscopy vs videostroboscopy, the latter of which was highly recommended by this YEAST FERMENTATION ATTENDANT in order to obtain the most thorough evaluation of laryngeal function. Education was also provided RE research that indicates long-term smoking effects on swallow function, including reduced pharyngeal stripping wave, airway closure and sensory input to laryngeal vestibule and trachea. The pt reported a longtime strong desire and efforts to quit smoking, including hypnosis, acupuncture and medication, that have not been effective. Education was also provided on ENT services around sinus function and potential identification of factors contributing to post nasal drip that may subsequently be contributing to frequent throat clearing. Referral to [facility] was recommended in order to obtain videostroboscopy that is not available via local ENTs. The pt was in agreement. Discussed dysphagia therapy POC and agreed that the pt would continue with swallow exercises and f/u with YEAST FERMENTATION ATTENDANT following ENT appt. Assessment Patient Response to Treatment Good Rehab Potential Fair Assessment of Improvement Over the course of treatment, the pt has demonstrated excellent compliance with HEP and reports significant reduction in coughing episodes with oral intake, from multiple episodes per week to singular episodes over several weeks' duration. Contrary to this, however, results from recent Modified Barium Swallow Study (MBSS, 05/15/20) demonstrated decline in swallow function and safety with increased laryngeal penetration and episodes of aspiration, as compared to initial MBSS (12/28/19) at [facility] [place] . The pt is a long-time smoker and does c/o frequent PND. Research has indicated adverse effect of smoking on pharyngoglottal closure reflex (Selvin, et al., 2002); therefore, question if swallow impairments may be a result of long-term smoking. Referral to [facility] for sinus evaluation of potential contributors to PND and videostroboscopy evaluation of laryngeal health, including VF function for airway protection, is strongly recommended. The pt is in agreement with recommendation. This YEAST FERMENTATION ATTENDANT will fax referral to [facility] and f/u with pt after that evaluation. The pt will continue with dysphagia HEP. Diet Recommendations Recommendations Continue Current Diet Liquids Order Thin Diet Order Dysphagia Mechanical Medication Recommendations As Tolerated Additional Dietary Needs Single Sips Aspiration Precautions Recommended Precautions Upright at 90 Degrees,Small Bites/Sips,Effortful Swallow, Double Swallow Additional Precautions Supersupraglottic swallow Treatment Plan Placement Recommendation after Discharge Home,Outpatient Therapy Appropriate for Continued Therapy Yes Therapy Recommendations 1. The pt will perform compensatory swallow strategies independently to reduce risk of aspiration. GOAL MET 2. The pt will perform exercises to increase strength , coordination and ROM of swallow musculature and increase safety and comfort with oral intake. GOAL MET Dysphagia Goals The pt will tolerate regular diet texture and thin liquids without s/sx of aspiration, as measured by MBSS. GOAL NOT MET Follow Up Plan After ENT evaluation Referrals/Other Recommended Referrals ENT Consult
--- NOTE | 2020-11-26 14:17 | ST.IPDYTX ---
Visit Care Team Role Provider Type Anais Holcomb MD Attending Provider Non-Staff Primary Care Provider Referring Provider Specialty: Internal Medicine Address: [address] [place] [address], [id number] Email: [email or web address] RAILROAD YARD WORKER Dysphagia Treatment RAILROAD YARD WORKER Dysphagia Treatment Start: 03/07/20 15:35 Freq: Status: Active Protocol: Document 11/26/20 14:14 ZHANE (Rec: 11/26/20 14:17 [email or web address] [email or web address]) Dysphagia Treatment Visit Information Plan of Care Dates 06/04/20 - 08/28/20 Insurance Information Medicare Setting Assessment Location Outpatient Care Visit Type Note Type Discharge Summary Patient Information Subjective Observations The pt was last seen 07/17/20 and has not contacted RAILROAD YARD WORKER for further followup care. He made excellent progress with treatment and will be discharged at this time. Treatment Plan Therapy Recommendations 1. The pt will perform compensatory swallow strategies independently to reduce risk of aspiration. GOAL MET 2. The pt will perform exercises to increase strength , coordination and ROM of swallow musculature and increase safety and comfort with oral intake. GOAL MET Dysphagia Goals The pt will tolerate regular diet texture and thin liquids without s/sx of aspiration, as measured by MBSS. GOAL NOT MET as of last session
== END 2020-11-28 07:50 ==
LOC: SP 08:30
PROVIDERS: PCP Internal Medicine; Referring Provider Internal Medicine; Visit Provider Internal Medicine
DX: R13.12 Dysphagia, oropharyngeal phase (principal)
CPT/HCPCS: 92526; 92610

== ENCOUNTER → 2020-12-25 08:40 | Outpatient (CLI) | payer MEDICARE, OTHER, SELFPAY ==
[2020-12-25 09:25] LABS: Add Manual Diff / Slide Review NO; Basophils Absolute Auto 100 /uL (0-100); Basophils Percent Auto 0.7 % (0-2); Eosinophils Absolute Auto 100 /uL (0-450); Eosinophils Percent Auto 1.4 % (2-4); Hematocrit 42.9 % (41-53); Hemoglobin 14.4 g/dL (13.5-17.5); Lymphocytes Absolute Auto 1600 /uL (1100-4500); Lymphocytes Percent Auto 19.4 % (25-40); Mean Corpuscular HGB Conc 33.6 % (30-36); Mean Corpuscular Hemoglobin 32.6 PG (26-34); Mean Corpuscular Volume 97.2 fL (80-100); Monocytes Absolute Auto 1000 /uL (0-900); Monocytes Percent Auto 12.5 % (3-14); Neutrophils Absolute Auto 5300 /uL (1500-7000); Platelet Count 175 X10^3/uL (150-400); Red Blood Cell Count 4.42 X10^6/uL (4.5-5.9); Red Cell Distribution Width 14.6 % (11.6-14.8)
[2020-12-25 09:54] LABS: Alanine Aminotransferase 21 IU/L (<50); Albumin 4.2 g/dL (3.5-5.0); Albumin Globulin Ratio 1.5 (1.0-2.8); Alkaline Phosphatase 68 U/L (38-126); Aspartate Aminotransferase 27 IU/L (17-59); BUN Creatinine Ratio 30.2 (6-22); Bilirubin Total 0.5 mg/dL (0.2-1.3); Blood Urea Nitrogen 19 mg/dL (9-20); Calcium 9.7 mg/dL (8.4-10.2); Carbon Dioxide 30 mmol/L (22-32); Chloride 106 mmol/L (98-107); Cholesterol 143 mg/dL (140-199); Estimated Glomerular Filt Rate > 60.0 mL/min (>60); Globulin 2.8 g/dL (1.7-4.1); Glucose 90 mg/dL (80-110); HDL Cholesterol 56 mg/dL (40-60); HEMOLYSIS 18 (0-50); LDL Cholesterol Calculated 75 mg/dL (<100); Potassium 4.5 mmol/L (3.4-5.1); Sodium 140 mmol/L (137-145); Triglycerides 59 mg/dL (35-150)
== END ==
PROVIDERS: PCP Internal Medicine; Referring Provider Internal Medicine; Visit Provider Internal Medicine
DX: F17.210 Nicotine dependence, cigarettes, uncomplicated (principal); E78.5 Hyperlipidemia, unspecified; N52.9 Male erectile dysfunction, unspecified; I73.9 Peripheral vascular disease, unspecified
CPT/HCPCS: 36415; 80053; 80061; 85025

== ENCOUNTER → 2021-01-16 13:01 | Outpatient (CLI) | payer MEDICARE, OTHER, SELFPAY ==
--- NOTE | 2021-01-16 | DI.MRI.S_ITS ---
PROCEDURE: MR RUN OFF 3 STAGES ABD START INDICATIONS: Peripheral vascular disease, unspecified TECHNIQUE: Precontrast axial and coronal TruFISP acquired through the abdomen and pelvis. Multi-station dynamic coronal MRA using Care Bolus timing from the kidneys to the ankles during the administration of contrast, with 3-dimensional maximum intensity projection (MIP) reformats constructed. COMPARISON: None. FINDINGS: Image quality: Excellent. ABDOMEN: Aorta: There is mild ectasia of the infrarenal abdominal aorta measuring roughly 26 mm short axis. No dissection or significant stenosis. Renal arteries: Single bilateral renal arteries are present which are patent. There is a possible right renal artery aneurysm at the renal artery branch point measuring 13 mm. Extravascular soft tissues: Visualized solid organs are normal in size on limited pre-contrast images. Bowel loops are normal in caliber. No free fluid. No retroperitoneal or mesenteric adenopathy by size criteria. No ventral hernias. Bones: Marrow demonstrates normal overall signal. PELVIS AND BILATERAL LOWER EXTREMITIES: Right sided vessels: Common, internal, and external iliac arteries are tortuous and mildly diffusely stenotic. Common and profunda femoral arteries are patent. Superficial femoral artery is occluded, as is the above knee popliteal artery. There is reconstituted flow seen within the popliteal artery at the level of the knee joint, which demonstrates mild diffuse stenosis. Anterior tibial artery occludes mid calf. Tibioperoneal trunk is mildly diffusely stenotic. Peroneal artery is not well seen secondary to venous overlap. Posterior tibial artery demonstrates multifocal moderate stenoses. Left sided vessels: Common, internal, and external iliac arteries are tortuous and mildly diffusely stenotic. Common, profunda and superficial femoral arteries demonstrate multifocal mild stenoses. Above and below knee popliteal artery demonstrate mild multifocal stenosis. Anterior tibial artery, tibioperoneal trunk, and peroneal artery demonstrate mild diffuse stenosis. Posterior tibial artery occludes proximally. IMPRESSION: 1. No significant inflow stenosis bilaterally. 2. Occluded right outflow vessels as described above. No significant left-sided outflow stenosis. 3. Suboptimally visualized right sided runoff vessels. 2 vessel left lower extremity runoff. 4. Possible right renal artery aneurysm; initial further assessment with CT angiography of the abdomen is recommended. Dictated by: Alexi Cook M.D. on 01/16/2021 at 14:02 Approved by: Alexi Cook M.D. on 01/16/2021 at 14:07
== END ==
PROVIDERS: PCP Internal Medicine; Referring Provider Internal Medicine; Visit Provider Internal Medicine
DX: I73.9 Peripheral vascular disease, unspecified (principal)
CPT/HCPCS: C8902; C8912; C8918

== ENCOUNTER → 2021-01-31 08:11 | Outpatient (CLI) | payer MEDICARE, OTHER, SELFPAY ==
[2021-01-31 08:53] LABS: BUN Creatinine Ratio 29.2 (6-22); Blood Urea Nitrogen 19 mg/dL (9-20); Estimated Glomerular Filt Rate > 60.0 mL/min (>60)
== END ==
PROVIDERS: PCP Internal Medicine; Referring Provider Internal Medicine; Visit Provider Internal Medicine
DX: I73.9 Peripheral vascular disease, unspecified (principal)
CPT/HCPCS: 36415; 82565; 84520

== ENCOUNTER → 2021-02-01 10:40 | Outpatient (CLI) | payer MEDICARE, OTHER, SELFPAY ==
--- NOTE | 2021-02-01 10:41 | DI.CT.S_ITS ---
PROCEDURE: CT ANGIO ABD AORTA RUNOFF INDICATIONS: Aneurysm of renal artery TECHNIQUE: After the administration of intravenous contrast, 2.5 mm sections acquired from T12 to the feet, with optional delayed image acquisition from the knees to the feet. 3-dimensional maximum intensity projection (MIP) coronal and sagittal reformats, and/or 3-dimensional volume rendering reformatting was then performed. For radiation dose reduction, the following was used: automated exposure control. COMPARISON: [facility], , MR RUN OFF 3 STAGES ABD START, 01/16/2021, 13:19. FINDINGS: Image quality: Excellent. Extravascular tissues: Visualized arterial phase portions of the liver, biliary tree, pancreas, adrenals, kidneys, and bowel loops are grossly unremarkable. There is a small amount of free fluid within the pelvis. No pneumoperitoneum. Visualized osseous structures are grossly unremarkable. Abdominal aorta: There is moderate diffuse calcific plaque, causing mild diffuse stenosis. Mild ectasia of the infrarenal abdominal aorta measuring 30 mm diameter. Renal and mesenteric arteries: Single bilateral renal arteries are present. There is a right renal artery aneurysm at a bifurcation point, as before, measuring roughly 13 mm diameter. Left renal artery is grossly unremarkable. Celiac artery origin is excluded from the examination. Superior mesenteric artery is patent. Inferior mesenteric artery is grossly patent. Right lower extremity: Common, internal, and external iliac arteries demonstrate mild diffuse calcific stenosis. There is mild dilatation of the right common iliac artery diffusely measuring roughly 16 mm. There is mild dilatation of the common femoral artery measuring 15 mm. Common femoral artery is patent. Profunda femoral artery is patent. Superficial femoral artery is occluded at its origin. Above knee popliteal artery is occluded and aneurysmal, measuring 18 mm diameter. There is reconstituted flow within the below-knee popliteal artery at the level of the knee joint. Anterior tibial artery demonstrates mild multifocal stenoses proximally, and occludes distal calf. Tibioperoneal trunk demonstrates moderate diffuse calcific plaque causing mild diffuse stenosis. Peroneal artery demonstrates mild calcific stenosis proximally, and is otherwise patent. Posterior tibial artery demonstrates multifocal moderate high-grade calcific stenoses. Left lower extremity: Common iliac artery demonstrates moderate diffuse calcific plaque causing mild diffuse stenosis and is mildly diffusely dilated measuring roughly 15 mm diameter. Internal and external iliac arteries demonstrate moderate diffuse plaque causing mild diffuse calcific stenosis. Common femoral artery is mildly distended measuring 14 mm diameter. Profundal and superficial femoral arteries demonstrate mild diffuse stenosis. Above knee popliteal artery is mildly distended measuring 10 mm diameter. Above knee and below-knee popliteal arteries are patent. Anterior tibial artery demonstrates mild calcific stenosis proximally, and is otherwise patent. Tibioperoneal trunk demonstrates mild diffuse calcific stenosis. Posterior tibial artery occludes proximally. Peroneal artery is mildly stenotic proximally. 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 Medical therapy/hypertension control is recommended for further management. Annual MR angiography of the abdomen surveillance is recommended. 2. No significant inflow stenosis bilaterally. 3. Right-sided outflow occlusion. 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 4. No significant left-sided outflow stenosis. 5. Bilateral runoff vessel stenosis as described above. 6. Small amount of free fluid within the pelvis which is nonspecific. Differential considerations include underlying infection, inflammation, or neoplasm. Dictated by: Alexi Cook M.D. on 02/01/2021 at 11:47 Approved by: Alexi Cook M.D. on 02/01/2021 at 11:57
== END ==
PROVIDERS: PCP Internal Medicine; Referring Provider Internal Medicine; Visit Provider Internal Medicine
DX: I72.2 Aneurysm of renal artery (principal); I72.4 Aneurysm of artery of lower extremity; I73.9 Peripheral vascular disease, unspecified
CPT/HCPCS: 75635

== ENCOUNTER → 2023-08-24 07:44 | Outpatient (CLI) | payer MEDICARE, OTHER, SELFPAY ==
[2023-08-24 08:56] LABS: Add Manual Diff / Slide Review NO; Basophils Absolute Auto 0 /uL (0-100); Basophils Percent Auto 0.5 % (0-2); Eosinophils Absolute Auto 100 /uL (0-450); Eosinophils Percent Auto 1.6 % (2-4); Hematocrit 41.5 % (41-53); Hemoglobin 14.1 g/dL (13.5-17.5); Lymphocytes Absolute Auto 1300 /uL (1100-4500); Lymphocytes Percent Auto 20.2 % (25-40); Mean Corpuscular Hemoglobin 33.5 PG (26-34); Mean Corpuscular Volume 98.5 fL (80-100); Monocytes Absolute Auto 800 /uL (0-900); Neutrophils Absolute Auto 4200 /uL (1500-7000); Neutrophils Percent Auto 65.7 % (50-75); Platelet Count 171 X10^3/uL (150-400); Red Blood Cell Count 4.22 X10^6/uL (4.5-5.9); Red Cell Distribution Width 14.7 % (11.6-14.8); White Blood Cell Count 6.5 X10^3/uL (4.5-11.0)
[2023-08-24 09:47] LABS: Alanine Aminotransferase 31 IU/L (<50); Albumin Globulin Ratio 1.4 (1.0-2.8); Alkaline Phosphatase 62 U/L (38-126); Aspartate Aminotransferase 27 IU/L (17-59); Bilirubin Total 0.8 mg/dL (0.2-1.3); Blood Urea Nitrogen 21 mg/dL (9-20); Calcium 9.8 mg/dL (8.4-10.2); Carbon Dioxide 28 mmol/L (22-32); Chloride 105 mmol/L (98-107); Cholesterol 114 mg/dL (140-199); Estimated Glomerular Filt Rate > 60 mL/min (>60); Globulin 2.8 g/dL (1.7-4.1); Glucose 93 mg/dL (80-110); HDL Cholesterol 66 mg/dL (40-60); HEMOLYSIS < 15 (0-50); LDL Cholesterol Calculated 39 mg/dL (<100); Potassium 4.8 mmol/L (3.4-5.1); Sodium 138 mmol/L (137-145); Total Protein 6.8 g/dL (6.3-8.2); Triglycerides 44 mg/dL (35-150)
[2023-08-24 09:52] LABS: High Sensitivity CRP - Cardiac < 0.3 mg/L (1.0-3.0)
== END ==
PROVIDERS: PCP Family Medicine; Referring Provider Family Medicine; Visit Provider Family Medicine
DX: J43.2 Centrilobular emphysema (principal); I73.9 Peripheral vascular disease, unspecified; Z12.5 Encounter for screening for malignant neoplasm of prostate; F17.220 Nicotine dependence, chewing tobacco, uncomplicated; G47.33 Obstructive sleep apnea (adult) (pediatric); Z79.899 Other long term (current) drug therapy; Z13.220 Encounter for screening for lipoid disorders; E78.00 Pure hypercholesterolemia, unspecified
CPT/HCPCS: 36415; 80053; 80061; 85025; 86140; G0103

== ENCOUNTER → 2024-04-28 15:32 | Outpatient (CLI) | payer MEDICARE, OTHER, SELFPAY ==
[2024-04-28 16:27] LABS: Add Manual Diff / Slide Review NO; Basophils Absolute Auto 0 /uL (0-100); Basophils Percent Auto 0.3 % (0-2); Eosinophils Absolute Auto 100 /uL (0-450); Eosinophils Percent Auto 2.3 % (2-4); Hematocrit 41.6 % (41-53); Lymphocytes Absolute Auto 1200 /uL (1100-4500); Lymphocytes Percent Auto 18.8 % (25-40); Mean Corpuscular HGB Conc 33.7 % (30-36); Mean Corpuscular Hemoglobin 33.3 PG (26-34); Mean Corpuscular Volume 98.8 fL (80-100); Monocytes Absolute Auto 800 /uL (0-900); Monocytes Percent Auto 12.1 % (3-14); Neutrophils Absolute Auto 4400 /uL (1500-7000); Neutrophils Percent Auto 66.5 % (50-75); Platelet Count 176 X10^3/uL (150-400); Red Cell Distribution Width 14.7 % (11.6-14.8); White Blood Cell Count 6.6 X10^3/uL (4.5-11.0)
[2024-04-28 16:54] LABS: Alanine Aminotransferase 28 IU/L (<50); Albumin 4.2 g/dL (3.5-5.0); Albumin Globulin Ratio 1.8 (1.0-2.8); Alkaline Phosphatase 67 U/L (38-126); Aspartate Aminotransferase 29 IU/L (17-59); BUN Creatinine Ratio 33.8 (6-22); Bilirubin Total 0.6 mg/dL (0.2-1.3); Blood Urea Nitrogen 25 mg/dL (9-20); Calcium 9.4 mg/dL (8.4-10.2); Carbon Dioxide 28 mmol/L (22-32); Chloride 107 mmol/L (98-107); Estimated Glomerular Filt Rate > 60 mL/min (>60); Globulin 2.4 g/dL (1.7-4.1); Glucose 119 mg/dL (80-110); HEMOLYSIS < 15 (0-50); Potassium 4.5 mmol/L (3.4-5.1); Sodium 141 mmol/L (137-145); Total Protein 6.6 g/dL (6.3-8.2)
[2024-04-28 17:23] LABS: Prostate Specific Antigen Scrn 0.683 ng/mL (0.1-4.0)
[2024-04-28 17:25] LABS: TSH w/ Reflex to FT4 1.25 uIU/mL (0.47-4.68)
[2024-04-28 18:38] LABS: Creatinine Urine Random 102.49 mg/dL
[2024-04-28 18:47] LABS: Microalbumin Urine Random 1.3 mg/dL (0-1.6)
== END ==
PROVIDERS: PCP Family Medicine; Referring Provider Physician Assistant; Visit Provider Physician Assistant
DX: R63.0 Anorexia (principal); Z12.5 Encounter for screening for malignant neoplasm of prostate; R63.4 Abnormal weight loss; M54.9 Dorsalgia, unspecified
CPT/HCPCS: 36415; 80053; 82043; 82570; 84443; 85025; G0103

== ENCOUNTER → 2024-05-03 07:51 | Outpatient (CLI) | payer MEDICARE, OTHER, SELFPAY ==
--- NOTE | 2024-05-03 10:00 | DI.CT.S_ITS ---
PROCEDURE: CT CHEST ABD PEL W CON INDICATIONS: Loss of appetite and weight, back pain (at T11-12 level) TECHNIQUE: After the administration of intravenous contrast, 5 mm thick sections acquired from the lung apices to the symphysis. 5 mm coronal and sagittal reformats were performed, with additional 7 mm MIP reformats through the lungs. For radiation dose reduction, the following was used: automated exposure control, adjustment of mA and/or kV according to patient size. COMPARISON: [facility], CT, CT CHEST WO CON, 05/20/2019, 9:29. [facility], CT, CT ANGIO ABD AORTA RUNOFF, 02/01/2021, 10:55. FINDINGS: Image quality: Excellent. CHEST: Lower Neck: No enlarged lymph nodes. Thyroid: A few bilateral thyroid nodules, largest measuring 1.7 centimeters. Axillae: No enlarged lymph nodes. Chest Wall: Unremarkable. Lungs and Pleura: Wedge-shaped region consolidation in the lateral right lower lobe, possibly infarct (series 3, image 249). Confluent centrilobular emphysema. Tree-in-bud and centrilobular nodules in the dependent right upper lobe, probably a focus of infectious or inflammatory bronchiolitis. Juxtapleural nodules with smooth margins, favoring benign intrapulmonary lymph nodes. New 3-4 millimeter solid nodule in the left lower lobe (series 3, image 305). Heart: Heart size is enlarged. No pericardial effusion. Three-vessel coronary artery calcifications. Thoracic Vessels: The aorta and pulmonary arteries demonstrate normal size. Filling defects within the proximal segmental pulmonary arteries the right lower lobe. Mediastinum and Kirstie: No enlarged lymph nodes. Esophagus: No wall thickening. No hiatal hernia. ABDOMEN: Liver: No solid mass. Hepatic cysts. Gallbladder: No radiopaque gallstones or wall thickening. Biliary ducts: No biliary dilation. Pancreas: No ductal dilation. Spleen: Size is within normal limits. Calcified granuloma. Adrenal Glands: No adrenal nodules. Kidneys and Ureters: No hydronephrosis. No solid mass. No complex renal cystic lesion which requires follow up. Stomach and Bowel: Normal colonic caliber, without significant wall thickening. Colonic diverticulosis without evidence of diverticulitis. Peritoneum: No abnormal intraperitoneal fluid. No free air. Ventral Wall: No significant ventral hernia. Abdominal Nodes: No retroperitoneal or mesenteric adenopathy by size criteria. Vessels: Aorta and inferior vena cava are normal in size. 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 PELVIS: Pelvic Organs: Unremarkable. Bladder: No bladder wall thickening, accounting for underdistention. Pelvic Nodes: No enlarged lymph nodes. Miscellaneous: No inguinal hernias are seen. Bones: No aggressive osseous abnormality. Degenerative disc disease of the lumbar spine. IMPRESSION: Right lower lobe pulmonary emboli. No evidence of heart strain . 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 A few bilateral thyroid nodules, largest measuring 1.7 centimeter. These have been worked up in 2017. Consider repeat thyroid ultrasound given symptoms. 3 millimeter solid nodule in the left lower lobe, new from prior. Consider 12 month follow-up per Fleischner society guidelines. Consider screening colonoscopy if not up-to-date, given symptoms. Dictated by: Ji Gutierrez M.D. on 05/03/2024 at 15:23 Approved by: Ji Gutierrez M.D. on 05/03/2024 at 15:33
== END ==
PROVIDERS: PCP Family Medicine; Referring Provider Physician Assistant; Visit Provider Physician Assistant
DX: I26.99 Other pulmonary embolism without acute cor pulmonale (principal); E04.2 Nontoxic multinodular goiter; R91.1 Solitary pulmonary nodule; I72.2 Aneurysm of renal artery; R63.4 Abnormal weight loss; R63.0 Anorexia; M54.9 Dorsalgia, unspecified; I51.7 Cardiomegaly; I25.10 Atherosclerotic heart disease of native coronary artery without angina pectoris; K76.89 Other specified diseases of liver; K57.90 Diverticulosis of intestine, part unspecified, without perforation or abscess without bleeding; M51.36 Other intervertebral disc degeneration, lumbar region
CPT/HCPCS: 71260; 74177; Q9967

== ENCOUNTER → 2024-05-06 14:57 | Outpatient (CLI) | payer MEDICARE, OTHER, SELFPAY ==
--- NOTE | 2024-05-06 14:58 | DI.US.S_ITS ---
PROCEDURE: US THYROID INDICATIONS: Thyroid nodules TECHNIQUE: Real-time scanning was performed of the thyroid gland, with image documentation. COMPARISON: [facility], US, THYROID, 01/19/2017, 8:40. FINDINGS: Thyroid: Right lobe measures 5.8 x 1.9 x 1.8 cm. Left lobe measures 6.3 x 3.1 x 1.8 cm. Isthmus is 0.4 cm thick. Echotexture is homogeneous. Nodule number: 1 Location: Right superior pole Size: 2.2 x 1.4 x 1.6 cm. Previously 1.4 x 0.8 x 1.5 centimeter. Composition: Solid Echogenicity: Hypoechoic Shape: wider than tall. Margins: Smooth Echogenic foci: None Total points: 4 ACR TI-RADS category: Moderate suspicion category Nodule number: 2 Location: Right inferior pole Size: 2.8 x 1.7 x 2.0 cm. Previously 1.6 x 1.1 x 2.1 centimeter. Composition: Mixed cystic and solid Echogenicity: Hypoechoic Shape: wider than tall. Margins: Irregular Echogenic foci: Punctate and macrocalcification Total points: 6 ACR TI-RADS category: Mild suspicion category Nodule number: 3 Location: Left inferior pole Size: 1.8 x 1.3 x 1.7 cm. Previously 1.8 x 1.6 x 1.8 centimeter. Composition: Solid Echogenicity: Hypoechoic Shape: wider than tall. Margins: Smooth Echogenic foci: None Total points: 4 ACR TI-RADS category: Moderate suspicion category. IMPRESSION: Interval growth of the right-sided thyroid nodules, both of which meet size criteria for biopsy. No significant interval growth of the previously biopsy left thyroid nodule. No re-biopsy is warranted at this time, assuming benign results in the past. ACR TI-RADS definitions and recommendations: TI-RADS 1 (benign): 0 points. FNA not needed. TI-RADS 2 (not suspicious): 2 points. FNA not needed. TI-RADS 3 (mildly suspicious): 3 points. * FNA if 2.5 cm or larger, follow up if 1.5 cm or larger (at 1, 3, and 5 years). TI-RADS 4 (moderately suspicious): 4-6 points. * FNA if 1.5 cm or larger, follow up if 1 cm or larger (at 1, 2, 3, and 5 years). TI-RADS 5 (highly suspicious): 7 points or more. * FNA if 1 cm or larger, follow up if 0.5 cm or larger (every year for 5 years). Dictated by: Ji Gutierrez M.D. on 05/09/2024 at 16:27 Approved by: Ji Gutierrez M.D. on 05/09/2024 at 16:32
== END ==
PROVIDERS: PCP Family Medicine; Referring Provider Family Medicine; Visit Provider Family Medicine
DX: E04.2 Nontoxic multinodular goiter (principal); R63.0 Anorexia; R63.4 Abnormal weight loss
CPT/HCPCS: 76536

== ENCOUNTER → 2024-05-19 | Outpatient (CLI) | payer MEDICARE, OTHER, SELFPAY ==
--- NOTE | 2024-05-19 | PATH_ITS ---
Note [facility] Accession Number: [id number] TESTS RESULT FLAG UNITS REF RANGE LAB Clinician Provided Cytology Information No. of containers..00 Previously Prepared Cytology Slide 35 Unknown Storage/container code(s) Source: RIGHT THYROID NODULE INFERIOR B DIAGNOSIS: RIGHT THYROID NODULE INFERIOR B, FINE NEEDLE ASPIRATION. BENIGN. ADEQUATE FOR EVALUATION. FOLLICULAR GROUPS ARE PRESENT. FAVOR BENIGN FOLLICULAR (GOITEROUS) NODULE (BETHESDA CATEGORY II), SEE COMMENT. COMMENT: MICROSCOPIC EXAMINATION REVEALS A HYPO/MILDLY CELLULAR ASPIRATE, COMPOSED OF FEW FOLLICULAR GROUPS (>6 GROUPS THAT ARE REQUIRED FOR ADEQUACY) AND COLLOID. THE FINDINGS FAVOR A BENIGN FOLLICULAR (GOITEROUS) NODULE. HOWEVER, SINCE THIS ASPIRATE IS MILDLY CELLULAR, IT MAY NOT BE LIVESTOCK BREEDER OF THE PATIENT'S LESION. CORRELATION WITH CLINICAL AND RADIOGRAPHIC FINDINGS IS RECOMMENDED TO ENSURE THAT THE LESION HAS BEEN ADEQUATELY SAMPLED. ACCORDING TO THE BETHESDA REPORTING SYSTEM FOR THYROID CYTOPATHOLOGY, THE RISK OF MALIGNANCY IN THE CATEGORY BENIGN-CATEGORY II IS 0-3%; THEREFORE RECOMMEND CONTINUED ULTRASOUND SURVEILLANCE WITH REPEAT FNA IF THE NODULE SIGNIFICANTLY INCREASES IN SIZE. 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 Signed out by: Floyd Childs MD, Pathologist NPI- [id number] Performed by: Aleksander Graves, Teacher Industrial Arts ([facility]) Gross description: 01 30 CC, PINK, CLEAR RECIEVED: IN CYTOLYT WITH 5 ALCOHOL FIXED AND 5 QUICK STAINED SLIDES ALSO 1 RNA VIAL WILL ON 10-20-2024.VO /VDU 05/20/2024 1034 Local FLAG LEGEND: L-Low Normal,H-High Normal,LL-Alert Low,HH-Alert High <-Panic Low,>-Panic High,A-Abnormal,AA-Critical Abnormal Performed at: [address] [address], [place] [address] Jimi Cedeño MD, Performed at: [address] [address], [place], [place] [id number] MD Jimi Cedeño MD Phone: [phone]
--- NOTE | 2024-05-19 | PATH_ITS ---
Note [facility] Accession Number: [id number] TESTS RESULT FLAG UNITS REF RANGE LAB Clinician Provided Cytology Information No. of containers..00 Previously Prepared Cytology Slide 35 Unknown Storage/container code(s) Source: RIGHT THYROID NODULE SUPERIOR A DIAGNOSIS: RIGHT THYROID NODULE SUPERIOR A, FINE NEEDLE ASPIRATION. INCONCLUSIVE. BETHESDA CATEGORY III. ATYPIA OF UNDETERMINED SIGNIFICANCE, SEE COMMENT. COMMENT: EXAMINATION OF THE SMEARS REVEALS A MILDLY CELLULAR ASPIRATE, COMPOSED OF COLLOID AND BENIGN FOLLICULAR GROUPS WITH FOCAL HURTHLE CELL CHANGES. IN ADDITION, THERE ARE RARE GROUPS WHERE MILD NUCLEAR ENLARGEMENT, OVERLAPPING, PALLOR AND RARE NUCLEAR MEMBRANE IRREGULARITIES (GROOVES) ARE NOTED. INTRANUCLEAR PSEUDOINCLUSIONS ARE NOT DEFINITELY SEEN. THE RISK OF MALIGNANCY IN THE BETHESDA CATEGORY III IS 5-15%. ADDITIONAL MOLECULAR TESTING WILL BE PERFORMED ON THE SUBMITTED RNA VIAL FOR FURTHER EVALUATION. 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 Signed out by: Clayton Childs MD, Pathologist NPI- [id number] Performed by: Aleksander Graves, Language And Literature Division Chair ([facility]) Gross description: 01 30 CC, RED, CLEAR RECIEVED: IN CYTOLYT WITH 5 ALCOHOL FIXED AND 5 QUICK STAINED SLIDES ALSO 1 RNA VIAL WILL ON 10-20-2024.VO /VDU 05/20/2024 1033 Local FLAG LEGEND: L-Low Normal,H-High Normal,LL-Alert Low,HH-Alert High <-Panic Low,>-Panic High,A-Abnormal,AA-Critical Abnormal Performed at: 01 =[address] [facility] [place] [address], [place] [address] Jimi Cedeño MD, Specimen Comment: A duplicate report has been generated due to demographic updates. Performed at: [address], [place], [place] [id number] MD Jimi Cedeño MD Phone: [phone]
--- NOTE | 2024-05-19 08:24 | DI.US.S_ITS ---
PROCEDURE: US FINE NEEDLE ASPIRATION INDICATIONS: RIGHT THYROID NODULE TECHNIQUE: The indications, alternatives, benefits, risks, and complications of the procedure were explained to the patient. Written informed consent was obtained and placed in the chart. The thyroid region was examined sonographically and a site was chosen for ultrasound guided percutaneous sampling. The skin was prepared and draped in the usual fashion, and anesthetized with 1% lidocaine infiltrated from the skin down to the thyroid gland. Multiple passes were then performed, with contents emptied into an appropriate pathology specimen container. A bandage was applied to the area of access at completion of the study. COMPARISON: [facility], US, US THYROID, 05/06/2024, 15:40. FINDINGS: Location(s) of lesion(s) sampled: Right superior 1. [place]: 25 gauge hypodermic needles x3. 22 gauge hypodermic needles x2. Medications: 1% lidocaine for local anaesthesia. Complications: None. Location(s) of lesion(s) sampled: Right inferior 2. [place]: 25 gauge hypodermic needles x3. 22 gauge hypodermic needles x2. Medications: 1% lidocaine for local anaesthesia. Complications: None. IMPRESSION: Successful ultrasound-guided thyroid nodule fine needle aspiration, with cytology results pending. Procedure was performed by Dr. Wright. Please see chart below for management recommendations based on cytology results. [facility] ReportingRecommendationsNon-diagnostic* Repeat US-guided FNA, with on-site cytology evaluation if possible. * Repeated non-diagnostic nodules without high suspicion US features: close observation vs surgical consult. * Consider surgery if nodule has high suspicion US features, grows >20% in 2 dimensions on followup, or patient has clinical risk factors for malignancy. Benign* If nodule has high suspicion US features: repeat US and FNA within 12 months. * If nodule has low to intermediate suspicion US features: repeat US at 12-24 months. If nodule grows (20% increase in at least 2 dimensions, with minimal increase of 2 mm or >50% change in volume), or development of new suspicious US features, then repeat FNA or continue followup. * If nodule has very low suspicion US features: followup US at >24 months. Atypia of undetermined significance, follicular lesion of undetermined significanceRepeat FNA, molecular testing, followup US, or surgical consult.Follicular neoplasm, suspicious for follicular neoplasmSurgical consult; also consider molecular testing. Suspicious for malignancySurgical consult.MalignantSurgical consult. Dictated by: Favian Miner M.D. on 06/02/2024 at 8:18 Approved by: Favian Miner M.D. on 06/02/2024 at 8:22
== END ==
PROVIDERS: Family Provider Family Medicine; PCP Family Medicine; Referring Provider Family Medicine; Visit Provider Family Medicine
DX: E04.1 Nontoxic single thyroid nodule (principal)
CPT/HCPCS: 10005

== ENCOUNTER 2024-06-03 14:05 | Day surgery (SDC) | payer MEDICARE, OTHER, SELFPAY ==
[2024-06-03 14:45] VITALS: BP 184/94; PULSE 70; RESP 16; TEMP 36.8; O2SAT 97
[2024-06-03] MEDS: LACTATED RINGERS 1,000 ML 42 ML IV (15:08)
--- NOTE | 2024-06-03 15:09 | SUR.OPER ---
EGD SCOPE [id number]
--- NOTE | 2024-06-03 15:12 | PM.PREOP ---
Pre-operative Note Interval Note History & Physical reviewed/Exam performed by Physician: Yes Changes to H&P: No
--- NOTE | 2024-06-03 15:28 | PM.OP.EGD ---
Operative Date/Time/Diagnoses Date of procedure: 06/03/24 Time of procedure: 15:29 Pre-op diagnosis: Early satiety, unintentional weight loss Procedure & Clinicians Study performed: Diagnostic esophagogastroduodenoscopy Same procedure as scheduled: Yes Indications: 83-year-old smoker with pulmonary embolism early satiety and unintentional weight loss here for diagnostic upper endoscopy Surgeon: Yaniv Vickers Procedure Notes Procedure in detail: The history and physical was performed/updated and the patient is ASA class is 2. The procedure was discussed in detail with the patient. Potential risks complications including infection, bleeding, missed diagnosis, perforation, need for surgery, and were explained. Their questions were answered and informed consent was obtained. Patient placed in left lateral decubitus position. Time out was performed. Procedural sedation was administered by Anesthesia. A bite block was placed. the scope was inserted into the mouth and advanced through the esophagus and into the stomach. The pylorus was intubated and the duodenum was examined to the 2nd portion. The scope was then withdrawn into the stomach and was retroflexed. The stomach was decompressed and scope was withdrawn slowly through the esophagus. FINDINGS -friable gastric mucosa. -no esophageal or gastric mass The patient tolerated the procedure well and will be discharged when they meet criteria. Specimen(s): none sent Impression: Normal upper endoscopy Post-procedure Disposition: same day surgery
[2024-06-03 15:29] VITALS: BP 120/72; PULSE 81; RESP 17; TEMP 36.2; O2SAT 100
[2024-06-03 15:34] VITALS: BP 131/71; PULSE 72; RESP 14; O2SAT 100
[2024-06-03 15:39] VITALS: BP 123/84; PULSE 75; RESP 14; O2SAT 99
[2024-06-03 15:54] VITALS: BP 121/78; PULSE 70; RESP 14; TEMP 36.1; O2SAT 98
== END 2024-06-03 16:32 | disposition home or self-care (01) ==
PROVIDERS: Family Provider Family Medicine; PCP Family Medicine; Referring Provider Surgery; Visit Provider Surgery
PROC: 0DJ08ZZ Inspection of Upper Intestinal Tract, Via Natural or Artificial Opening Endoscopic (ICD-10-PCS; CPT 43235; principal; 2024-06-03 15:30)
DX: R68.81 Early satiety (principal); R63.4 Abnormal weight loss
CPT/HCPCS: 43235; J2704

== ENCOUNTER 2024-07-11 07:30 | Outpatient (RCR) | payer MEDICARE, OTHER, SELFPAY ==
--- NOTE | 2024-05-17 11:11 | PT.OPPOC ---
Physical, Occupational & Speech Therapy At [facility] Current Diagnoses Low back pain, unspecified (05/17/24) Unsteadiness on feet (05/17/24) Other abnormalities of gait and mobility (05/17/24) Visit Care Team Role Provider Type Megan Ba DO Attending Provider Physician Family Provider Primary Care Provider Referring Provider Specialty: Medical Address: [address] [place] [address], [address], [place], [address] Email: [email or web address] Plan Of Care PT-OP-B Current Condition Start: 05/17/24 07:20 Freq: Status: Active Protocol: Document 05/17/24 09:45 MB (Rec: 05/17/24 10:13 MB [id number]) Current Condition History of Current Condition Onset Date Back pain started 6 months ago Current Complaints A little bit of back pain and not wanting to do a lot, apathy History of Current Condition Pt reports 2/10 LBP. 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 Pt also takes a statin. Pt and states that his balance has been getting worse . Pt and report concern for apathy and he has had depression in the past but they don't see it now. 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 Pt is working in the yard, pouring concrete, working on the shed. They pay someone to mow lawn. Pt states that he started sitting more in recliner 6 months ago and that can be correlated with increased in LBP. His back pain has been better with moving more. Prior Treatments and Tests Brain, arterial and chest diagnostics in the past Treatment Goals Patient/Caregiver Goals To make improvements with balance and pain PT-OP-T Assessment and Plan Start: 05/17/24 07:20 Freq: Status: Active Protocol: Document 05/17/24 09:45 MB (Rec: 05/17/24 10:13 MB [id number]) Physical Therapy Assessment Rehab Potential Rehabilitation Potential Fair Evaluation Complexity Number of Personal Factors/Comorbidities 3 or More Number of Body Systems Impaired 3 Clinical Presentation at Evaluation Evolving Impairments Impairments Activity Tolerance,Balance, Functional Activities, Functional Mobility,Gait,Pain, Posture,ROM,Soft Tissue Mobility,Strength,Vestibular Other Concerns Fall Risk Yes Goals 4 Impairment Lack of HEP Hotel Attendant Goal (LTG) Pt will perform progressive HEP with I including pelvic realignment exercises, gentle flexibility and strengthening and balance exercises to improve alignment, pain and balance. LTG Duration 8 weeks 3 Impairment Slower gait speed Senior Care Goal (LTG) Pt will perform TUG in no more than 10 sec to decrease fall risk and improve functional balance with transfers and gait. LTG Duration 8 weeks 2 Impairment Slower gait speed observed, history PVD Senior Care Goal (LTG) Pt will gait train at least 1400 feet in 6 minutes to improve community ambulation functional balance in the community. LTG Duration 8 weeks 1 Impairment Evidence of imbalance Hotel Attendant Goal (LTG) Pt will perform WNLs on FGA to decrease fall risk. LTG Duration 8 weeks Assessment Summary Assessment Pt is an 83 y/o male presenting with complicated medical history including PVD and vascular occlusions/emboli affecting many areas including right LE, kidney and PE. PT cannot see all recent tests but some tests since 2020. reports history of smoking and that pt takes statin and Eliquis. , Salbador, is a retired nurse. Pt is [facility] and provides some history. Pt presents with good sitting LE strength and poorer functional strength in standing and poor balance with increased risk for falling. Proprioception of toes is normal today. HR and O2 sats right index finger 97%, 59 BPM . RUE BP and HR in sitting: BP does not read x2 on right UE likely d/t machine error, second machine and tested LUE 144/81, 48 BPM. Pulse is slow and regular. Pt will benefit from PT for pelvic realignment exercises, gentle flexibility and strengthening and balance exercises. PT will defer cardio exercise given many vascular co-morbidities. and pt do report that pt has experienced apathy and less interest in things lately and began sitting more 6 months ago and this is correlated with increased back pain. Physical Therapy Plan Frequency and Duration Frequency of Treatment 1-2x/wk Duration of treatment (weeks) 8 Plan of Care Start Date 05/17/24 Plan of Care End Date 07/18/24 Therapeutic Interventions Therapeutic Interventions Balance Training,Canalithic Repositioning,Coordination Training,Gait Training,Home Exercise Program,Joint Mobilizations,Manual Therapy, Neuromuscular Re-education, Patient/Caregiver Education, Self-Care/Home Management, Sensory Integration,Soft Tissue Mobilization,Taping, Therapeutic Activities, Therapeutic Exercises, Vestibular Rehabilitation Modalities Cold Pack/Ice Massage,Hot Packs Next Visit Focus/Plan Next Note Type Treatment Note Next Visit Plan Initiate pelvic realignment exercises Perform 6MWT, TUG Consider gentle flexibility for thoracic spine, hamstrings , PFs, glutes, etc Eventually, progress to [facility] for gentle balance and strengthening Plan of Care Dates Plan of Care Start Date 05/17/24 Plan of Care End Date 07/18/24 Electronically Signed by: Serenity Cid, PT 05/17/24 1111 If you are in agreement with this Plan of Care, please return a signed and dated copy. I have reviewed this Plan of Care and certify that the skilled therapy services above are required to meet the patient?s needs. Physician Signature Date Printed Name and Credentials Clinical Instructor Signature Printed Name and Credentials
--- NOTE | 2024-05-17 11:11 | PT.OIE ---
Current Diagnoses Low back pain, unspecified (05/17/24) Unsteadiness on feet (05/17/24) Other abnormalities of gait and mobility (05/17/24) Past Medical History (Last Updated 08/20/23 @ 18:50 by Suni Pelayo) Cataracts, bilateral (~2014) Centrilobular emphysema Chicken pox Chronic cough Depression Dysphagia Foot pain Hearing loss (~2019) Measles Mumps Obstructive sleep apnea of adult (~1984) Peripheral neuropathy (~2018) Peripheral vascular disease (~2018) Shingles (~1999) Snoring Substance abuse Tobacco dependence with current use Wears glasses Past Surgical History (Last Updated 08/20/23 @ 18:50 by Suni Pelayo) Anesthesia History of tonsillectomy and adenoidectomy (~1992) History of umbilical hernia repair Spermatocele Visit Care Team Role Provider Type Megan Ba DO Attending Provider Physician Family Provider Primary Care Provider Referring Provider Specialty: Medical Address: [address] [place] [address], [address], [place], [facility] Email: [email or web address] Physical Therapy Initial Evaluation PT-OP-A Visit Information Start: 05/17/24 07:20 Freq: Status: Active Protocol: Document 05/17/24 09:45 MB (Rec: 05/17/24 10:13 MB [id number]) Out-Patient Physical Therapy Visit Information Visit Information Visit Type Initial Evaluation Visit Note Medicare, for Life Visit Start Time 09:45 Visit Stop Time 10:25 Visit Number 1 Number of DIRECTOR OF REGULATORY AFFAIRS Visits 0 Evaluation Information Evaluation Date 05/17/24 Precautions Precautions Recent PE 05/03/24, [employer] and states that right LE is completely occluded as far as PVD. Work on alignment, stretches and balance and not cardio given vascular issues. Check O2 sats and BP as needed . Pt is on blood thinner. PT-OP-B Current Condition Start: 05/17/24 07:20 Freq: Status: Active Protocol: Document 05/17/24 09:45 MB (Rec: 05/17/24 10:13 MB [id number]) Current Condition History of Current Condition Onset Date Back pain started 6 months ago Current Complaints A little bit of back pain and not wanting to do a lot, apathy History of Current Condition Pt reports 2/10 LBP. 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 Pt also takes a statin. Pt and states that his balance has been getting worse . Pt and report concern for apathy and he has had depression in the past but they don't see it now. 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 Pt is working in the yard, pouring concrete, working on the shed. They pay someone to mow lawn. Pt states that he started sitting more in recliner 6 months ago and that can be correlated with increased in LBP. His back pain has been better with moving more. Prior Treatments and Tests Brain, arterial and chest diagnostics in the past Treatment Goals Patient/Caregiver Goals To make improvements with balance and pain PT-OP-C Subjective Start: 05/17/24 07:20 Freq: Status: Active Protocol: Document 05/17/24 09:45 MB (Rec: 05/17/24 11:05 MB [id number]) OP-PT Subjective Patient Comments Patient Comments See history of current condition Patient Questionnaires Oswestry Low Back Index Oswestry Score 11 Oswestry Impairment 20 to 39% Impaired (Score 20- 39) PT-OP-D Balance Start: 05/17/24 07:20 Freq: Status: Active Protocol: Document 05/17/24 09:45 MB (Rec: 05/17/24 11:05 MB [id number]) Balance Tests Other Other Balance Tests Performed Standing in socks: [place] with close superv and assistance to get into position and LOB to left x2 with [place] with EC, pt cannot get into Tandem B with assistance without LOB PT-OP-G Mobility & Gait Start: 05/17/24 07:20 Freq: Status: Active Protocol: Document 05/17/24 09:45 MB (Rec: 05/17/24 11:05 MB [id number]) OP Gait Assessment Comments Gait Comments Slow gait noted PT-OP-J Posture/Palpation/Skin Start: 05/17/24 07:20 Freq: Status: Active Protocol: Document 05/17/24 09:45 MB (Rec: 05/17/24 11:05 MB [id number]) Posture Evaluation Comments Posture Comments Posture standing in socks: B rounded shoulders, decreased cervical lordosis and upper thoracic kyphosis and then curvature changes and reverses posteriorly T4-7 area and this is close to pt's origin of 3/10 pain, right iliac crest is mildly higher than the left. Pt imbalanced in standing with rigid spine and so PT does not push lumbar or thoracic mobility testing today in standing or sitting. PT-OP-M Strength Start: 05/17/24 11:05 Freq: Status: Active Protocol: Document 05/17/24 09:45 MB (Rec: 05/17/24 11:10 MB [id number]) Hip Strength Hip Manual Muscle Testing Left Flexion (L2) 4+ Good+ Right Flexion (L2) 4 Good Comments LE MMT performed in sitting today Knee Strength Knee Manual Muscle Testing Bilateral Flexion (S2) 5 Normal Extension (L3) 5 Normal Ankle/Foot Strength Ankle and Foot Manual Muscle Testing Bilateral Dorsiflexion (L4) 5 Normal Toe Strength Toe Manual Muscle Testing Left Great Toe Extension 5 Normal Right Great Toe Extension 5 Normal PT-OP-Q Treatments Start: 05/17/24 07:20 Freq: Status: Active Protocol: Document 05/17/24 09:45 MB (Rec: 05/17/24 11:10 MB [id number]) Self-Care/Home Management Treatment Education Patient Education Body Mechanics,Fall Risk,Joint Protection,Posture Other Education Ed pt and in benefits of PT for gentle pelvic realignment exercises, gentle flexibility, strengthening and balance and no cardio work given multiple vascular issues . Ed pt in benefits of proper sleeping position with pillow under legs to help support sacrum and low back when he is sleeping in supine PT-OP-T Assessment and Plan Start: 05/17/24 07:20 Freq: Status: Active Protocol: Document 05/17/24 09:45 MB (Rec: 05/17/24 10:13 MB [id number]) Physical Therapy Assessment Rehab Potential Rehabilitation Potential Fair Evaluation Complexity Number of Personal Factors/Comorbidities 3 or More Number of Body Systems Impaired 3 Clinical Presentation at Evaluation Evolving Impairments Impairments Activity Tolerance,Balance, Functional Activities, Functional Mobility,Gait,Pain, Posture,ROM,Soft Tissue Mobility,Strength,Vestibular Other Concerns Fall Risk Yes Goals 4 Impairment Lack of HEP Mcfp Goal (LTG) Pt will perform progressive HEP with I including pelvic realignment exercises, gentle flexibility and strengthening and balance exercises to improve alignment, pain and balance. LTG Duration 8 weeks 3 Impairment Slower gait speed Fine Grader Goal (LTG) Pt will perform TUG in no more than 10 sec to decrease fall risk and improve functional balance with transfers and gait. LTG Duration 8 weeks 2 Impairment Slower gait speed observed, history PVD Fine Grader Goal (LTG) Pt will gait train at least 1400 feet in 6 minutes to improve community ambulation functional balance in the community. LTG Duration 8 weeks 1 Impairment Evidence of imbalance Fine Grader Goal (LTG) Pt will perform WNLs on FGA to decrease fall risk. LTG Duration 8 weeks Assessment Summary Assessment Pt is an 83 y/o male presenting with complicated medical history including PVD and vascular occlusions/emboli affecting many areas including right LE, kidney and PE. PT cannot see all recent tests but some tests since 2020. reports history of smoking and that pt takes statin and Eliquis. , Salbador, is a retired nurse. Pt is [employer] and provides some history. Pt presents with good sitting LE strength and poorer functional strength in standing and poor balance with increased risk for falling. Proprioception of toes is normal today. HR and O2 sats right index finger 97%, 59 BPM . RUE BP and HR in sitting: BP does not read x2 on right UE likely d/t machine error, second machine and tested LUE 144/81, 48 BPM. Pulse is slow and regular. Pt will benefit from PT for pelvic realignment exercises, gentle flexibility and strengthening and balance exercises. PT will defer cardio exercise given many vascular co-morbidities. and pt do report that pt has experienced apathy and less interest in things lately and began sitting more 6 months ago and this is correlated with increased back pain. Physical Therapy Plan Frequency and Duration Frequency of Treatment 1-2x/wk Duration of treatment (weeks) 8 Plan of Care Start Date 05/17/24 Plan of Care End Date 07/18/24 Therapeutic Interventions Therapeutic Interventions Balance Training,Canalithic Repositioning,Coordination Training,Gait Training,Home Exercise Program,Joint Mobilizations,Manual Therapy, Neuromuscular Re-education, Patient/Caregiver Education, Self-Care/Home Management, Sensory Integration,Soft Tissue Mobilization,Taping, Therapeutic Activities, Therapeutic Exercises, Vestibular Rehabilitation Modalities Cold Pack/Ice Massage,Hot Packs Next Visit Focus/Plan Next Note Type Treatment Note Next Visit Plan Initiate pelvic realignment exercises Perform 6MWT, TUG Consider gentle flexibility for thoracic spine, hamstrings , PFs, glutes, etc Eventually, progress to [facility] for gentle balance and strengthening
--- NOTE | 2024-05-24 09:46 | PT.OTN ---
Current Diagnoses Low back pain, unspecified (05/24/24) Unsteadiness on feet (05/24/24) Other abnormalities of gait and mobility (05/24/24) Physical Therapy Treatment Note PT-OP-A Visit Information Start: 05/17/24 07:20 Freq: Status: Active Protocol: Document 05/24/24 09:01 MB (Rec: 05/24/24 09:45 MB [id number]) Out-Patient Physical Therapy Visit Information Visit Information Visit Type Initial Evaluation Visit Note Medicare, for Life Visit Start Time 09:01 Visit Stop Time 09:41 Visit Number 2 Number of HELICOPTER CREW CHIEF Visits 0 Evaluation Information Evaluation Date 05/17/24 Precautions Precautions Recent PE 05/03/24, [place] and states that right LE is completely occluded as far as PVD. Work on alignment, stretches and balance and not cardio given vascular issues. Check O2 sats and BP as needed . Pt is on blood thinner. PT-OP-B Current Condition Start: 05/17/24 07:20 Freq: Status: Active Protocol: Document 05/17/24 09:45 MB (Rec: 05/17/24 10:13 MB [id number]) Current Condition History of Current Condition Onset Date Back pain started 6 months ago Current Complaints A little bit of back pain and not wanting to do a lot, apathy History of Current Condition Pt reports 2/10 LBP. 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 Pt also takes a statin. Pt and states that his balance has been getting worse . Pt and report concern for apathy and he has had depression in the past but they don't see it now. 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 Pt is working in the yard, pouring concrete, working on the shed. They pay someone to mow lawn. Pt states that he started sitting more in recliner 6 months ago and that can be correlated with increased in LBP. His back pain has been better with moving more. Prior Treatments and Tests Brain, arterial and chest diagnostics in the past Treatment Goals Patient/Caregiver Goals To make improvements with balance and pain PT-OP-C Subjective Start: 05/17/24 07:20 Freq: Status: Active Protocol: Document 05/24/24 09:01 MB (Rec: 05/24/24 09:45 MB [id number]) OP-PT Subjective Patient Comments Patient Comments arrives to ask about pool noodle width. Pt is agreeable to PT. PT-OP-D Balance Start: 05/17/24 07:20 Freq: Status: Active Protocol: Document 05/17/24 09:45 MB (Rec: 05/17/24 11:05 MB [id number]) Balance Tests Other Other Balance Tests Performed Standing in socks: Romberg with close superv and assistance to get into position and LOB to left x2 with Romberg with EC, pt cannot get into Tandem B with assistance without LOB PT-OP-G Mobility & Gait Start: 05/17/24 07:20 Freq: Status: Active Protocol: Document 05/17/24 09:45 MB (Rec: 05/17/24 11:05 MB [id number]) OP Gait Assessment Comments Gait Comments Slow gait noted PT-OP-J Posture/Palpation/Skin Start: 05/17/24 07:20 Freq: Status: Active Protocol: Document 05/17/24 09:45 MB (Rec: 05/17/24 11:05 MB [id number]) Posture Evaluation Comments Posture Comments Posture standing in socks: B rounded shoulders, decreased cervical lordosis and upper thoracic kyphosis and then curvature changes and reverses posteriorly T4-7 area and this is close to pt's origin of 3/10 pain, right iliac crest is mildly higher than the left. Pt imbalanced in standing with rigid spine and so PT does not push lumbar or thoracic mobility testing today in standing or sitting. PT-OP-M Strength Start: 05/17/24 11:05 Freq: Status: Active Protocol: Document 05/17/24 09:45 MB (Rec: 05/17/24 11:10 MB [id number]) Hip Strength Hip Manual Muscle Testing Left Flexion (L2) 4+ Good+ Right Flexion (L2) 4 Good Comments LE MMT performed in sitting today Knee Strength Knee Manual Muscle Testing Bilateral Flexion (S2) 5 Normal Extension (L3) 5 Normal Ankle/Foot Strength Ankle and Foot Manual Muscle Testing Bilateral Dorsiflexion (L4) 5 Normal Toe Strength Toe Manual Muscle Testing Left Great Toe Extension 5 Normal Right Great Toe Extension 5 Normal PT-OP-Q Treatments Start: 05/17/24 07:20 Freq: Status: Active Protocol: Document 05/24/24 09:01 MB (Rec: 05/24/24 09:45 MB [id number]) Therapeutic Exercises Supine Exercises Pelvic realigment exercises Side bilateral Equipment Used Blue ball Reps/Minutes 5 reps, 3 sec hold all exercises in order Comments Feet together ball squeeze iso , knee opp ankle iso, thigh press iso Other Exercises STS Comments Ed to perform 30 reps or 30 sec STS at home, twice daily, gave handout Therapeutic Activity Therapeutic Activity 30 sec STS Comments 11 reps in 30 sec Gait Training Gait Activity 6MWT Comments Wide DOLLY and left greater than right scuffing of feet with gait and pt reports reports he feels he is doing back and forth and he does have increased lateral movement with gait and he gait trains 1290 feet in 6 minutes and his gait speed begins to reduce with increased gait time Neuro Re-Education Treatment Balance Activities TUG Comments TUG in 12 sec PT-OP-T Assessment and Plan Start: 05/17/24 07:20 Freq: Status: Active Protocol: Document 05/24/24 09:01 MB (Rec: 05/24/24 09:45 [id number]) Physical Therapy Assessment Rehab Potential Rehabilitation Potential Fair Evaluation Complexity Number of Personal Factors/Comorbidities 3 or More Number of Body Systems Impaired 3 Clinical Presentation at Evaluation Evolving Impairments Impairments Activity Tolerance,Balance, Functional Activities, Functional Mobility,Gait,Pain, Posture,ROM,Soft Tissue Mobility,Strength,Vestibular Other Concerns Fall Risk Yes Goals 4 Impairment Lack of HEP Wine Steward Goal (LTG) Pt will perform progressive HEP with I including pelvic realignment exercises, gentle flexibility and strengthening and balance exercises to improve alignment, pain and balance. LTG Duration 8 weeks 3 Impairment Slower gait speed Assisted Goal (LTG) Pt will perform TUG in no more than 10 sec to decrease fall risk and improve functional balance with transfers and gait. LTG Duration 8 weeks 2 Impairment Slower gait speed observed, history PVD Assisted Goal (LTG) Pt will gait train at least 1400 feet in 6 minutes to improve community ambulation functional balance in the community. LTG Duration 8 weeks 1 Impairment Evidence of imbalance Assisted Goal (LTG) Pt will perform WNLs on FGA to decrease fall risk. LTG Duration 8 weeks Assessment Summary Assessment Initiated pelvic realignment exercises today and further gait and balance testing. Both 6MWT and TUG show deficits today, as well as STS. Gait does appears off at ankles/ decreased proprioception. Physical Therapy Plan Frequency and Duration Frequency of Treatment 1-2x/wk Duration of treatment (weeks) 8 Plan of Care Start Date 05/17/24 Plan of Care End Date 07/18/24 Therapeutic Interventions Therapeutic Interventions Balance Training,Canalithic Repositioning,Coordination Training,Gait Training,Home Exercise Program,Joint Mobilizations,Manual Therapy, Neuromuscular Re-education, Patient/Caregiver Education, Self-Care/Home Management, Sensory Integration,Soft Tissue Mobilization,Taping, Therapeutic Activities, Therapeutic Exercises, Vestibular Rehabilitation Modalities Cold Pack/Ice Massage,Hot Packs Next Visit Focus/Plan Next Note Type Treatment Note Next Visit Plan Review pelvic realignment exercises and add standing calf stretch and ankler DF and eversion exercise with theraband in sitting Consider gentle flexibility for thoracic spine, hamstrings , glutes, etc Eventually, progress to [facility] for gentle balance and strengthening such as therabands in standing
--- NOTE | 2024-05-27 08:13 | PT.OTN ---
Current Diagnoses Low back pain, unspecified (05/27/24) Unsteadiness on feet (05/27/24) Other abnormalities of gait and mobility (05/27/24) Physical Therapy Treatment Note PT-OP-A Visit Information Start: 05/17/24 07:20 Freq: Status: Active Protocol: Document 05/27/24 07:33 SP (Rec: 05/27/24 08:20 SP [id number]) Out-Patient Physical Therapy Visit Information Visit Information Visit Type Initial Evaluation Visit Note Medicare, for Life 3 after Eval Visit Start Time 07:33 Visit Stop Time 08:13 Visit Number 3 Number of CHEF KITCHEN MANAGER Visits 1 Evaluation Information Evaluation Date 05/17/24 Precautions Precautions Recent PE 05/03/24, [place] and states that right LE is completely occluded as far as PVD. Work on alignment, stretches and balance and not cardio given vascular issues. Check O2 sats and BP as needed . Pt is on blood thinner. PT-OP-B Current Condition Start: 05/17/24 07:20 Freq: Status: Active Protocol: Document 05/17/24 09:45 MB (Rec: 05/17/24 10:13 MB [id number]) Current Condition History of Current Condition Onset Date Back pain started 6 months ago Current Complaints A little bit of back pain and not wanting to do a lot, apathy History of Current Condition Pt reports 2/10 LBP. 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 Pt also takes a statin. Pt and states that his balance has been getting worse . Pt and report concern for apathy and he has had depression in the past but they don't see it now. 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 Pt is working in the yard, pouring concrete, working on the shed. They pay someone to mow lawn. Pt states that he started sitting more in recliner 6 months ago and that can be correlated with increased in LBP. His back pain has been better with moving more. Prior Treatments and Tests Brain, arterial and chest diagnostics in the past Treatment Goals Patient/Caregiver Goals To make improvements with balance and pain PT-OP-C Subjective Start: 05/17/24 07:20 Freq: Status: Active Protocol: Document 05/27/24 07:33 SP (Rec: 05/27/24 08:20 SP [id number]) OP-PT Subjective Patient Comments Patient Comments Pt reports hasn't had any back pain since last tx and not having to take Tylenol. Wants to learn more about how gain better balance and what can do to prevent into the future. PT-OP-D Balance Start: 05/17/24 07:20 Freq: Status: Active Protocol: Document 05/17/24 09:45 MB (Rec: 05/17/24 11:05 MB [id number]) Balance Tests Other Other Balance Tests Performed Standing in socks: Romberg with close superv and assistance to get into position and LOB to left x2 with Romberg with EC, pt cannot get into Tandem B with assistance without LOB PT-OP-G Mobility & Gait Start: 05/17/24 07:20 Freq: Status: Active Protocol: Document 05/17/24 09:45 MB (Rec: 05/17/24 11:05 MB [id number]) OP Gait Assessment Comments Gait Comments Slow gait noted PT-OP-J Posture/Palpation/Skin Start: 05/17/24 07:20 Freq: Status: Active Protocol: Document 05/17/24 09:45 MB (Rec: 05/17/24 11:05 MB [id number]) Posture Evaluation Comments Posture Comments Posture standing in socks: B rounded shoulders, decreased cervical lordosis and upper thoracic kyphosis and then curvature changes and reverses posteriorly T4-7 area and this is close to pt's origin of 3/10 pain, right iliac crest is mildly higher than the left. Pt imbalanced in standing with rigid spine and so PT does not push lumbar or thoracic mobility testing today in standing or sitting. PT-OP-M Strength Start: 05/17/24 11:05 Freq: Status: Active Protocol: Document 05/17/24 09:45 MB (Rec: 05/17/24 11:10 MB [id number]) Hip Strength Hip Manual Muscle Testing Left Flexion (L2) 4+ Good+ Right Flexion (L2) 4 Good Comments LE MMT performed in sitting today Knee Strength Knee Manual Muscle Testing Bilateral Flexion (S2) 5 Normal Extension (L3) 5 Normal Ankle/Foot Strength Ankle and Foot Manual Muscle Testing Bilateral Dorsiflexion (L4) 5 Normal Toe Strength Toe Manual Muscle Testing Left Great Toe Extension 5 Normal Right Great Toe Extension 5 Normal PT-OP-Q Treatments Start: 05/17/24 07:20 Freq: Status: Active Protocol: Document 05/27/24 07:33 SP (Rec: 05/27/24 08:20 SP [id number]) Therapeutic Exercises Supine Exercises Pelvic realigment exercises Supine Exercise Name Feet together ball squeeze iso , knee opp ankle iso, thigh press iso Side bilateral Equipment Used Blue ball between knees Reps/Minutes 5 reps, 3 sec hold all exercises in order Comments Cues for gentle pressure and mobility, contracted to forceful- improved Standing Exercises calf stretch Standing Exercise Name Lunge stance: added to HEP- gastroc and soleus Side bilateral Reps/Minutes 30SH Comments cued hold (not bounce) knee straight and bent Other Exercises STS Reps/Minutes 20-25 progressed to at time 2x /day progressing 30 as instructed Comments has chair 16 home 2x10 reps in PT today 17 , cues hip hinge sit Therapeutic Activity Therapeutic Activity 30 sec STS Comments -11 reps in 30 sec (21 height ) -8 reps in 30 sec (16-17 height like home chair) Neuro Re-Education Treatment Balance Activities TUG Comments TUG in 11 sec x3 (better centered around cone more step not scissor and picking up feet) Self-Care/Home Management Treatment Education Patient Education Body Mechanics,Joint Protection,Posture Other Education Ed less use hands and proper form sit/stand, added calf stretching to improved ankle flexibility and disussion more fwd COG over DOLLY. PT-OP-T Assessment and Plan Start: 05/17/24 07:20 Freq: Status: Active Protocol: Document 05/27/24 07:33 SP (Rec: 05/27/24 08:20 SP [id number]) Physical Therapy Assessment Goals 4 Impairment Lack of HEP Veneer Sander Goal (LTG) Pt will perform progressive HEP with I including pelvic realignment exercises, gentle flexibility and strengthening and balance exercises to improve alignment, pain and balance. LTG Duration 8 weeks 3 Impairment Slower gait speed Skilled Nursing Goal (LTG) Pt will perform TUG in no more than 10 sec to decrease fall risk and improve functional balance with transfers and gait. LTG Duration 8 weeks 2 Impairment Slower gait speed observed, history PVD Skilled Nursing Goal (LTG) Pt will gait train at least 1400 feet in 6 minutes to improve community ambulation functional balance in the community. LTG Duration 8 weeks 1 Impairment Evidence of imbalance Skilled Nursing Goal (LTG) Pt will perform WNLs on FGA to decrease fall risk. LTG Duration 8 weeks Assessment Summary Assessment Improved gentle motion and resistance post education during pelvic realignment review. Cued for STS COG over DOLLY with improved wt shift into forefoot awareness and able to from lower surface ( assimulated home 16 ) with ability not use BUEs but cues slower pacing flexion for control fully, reports good muscle tiring and no pain. Initiated calf stretch with education tight calf muscles can decreased ankle dorsiflexion and contributer to retro COG thus off balance. Improved TUG by 1 sec consistant timing this tx, post cues and demontration taller/ midline trunk scap awareness and smaller steps vs cross stepping more stable end TUG distance this tx. Pt reports wants more LE strength and balance work in PT to improve mobility and prevent regression in the future before done with PT. Physical Therapy Plan Frequency and Duration Frequency of Treatment 1-2x/wk Duration of treatment (weeks) 8 Plan of Care Start Date 05/17/24 Plan of Care End Date 07/18/24 Therapeutic Interventions Therapeutic Interventions Balance Training,Canalithic Repositioning,Coordination Training,Gait Training,Home Exercise Program,Joint Mobilizations,Manual Therapy, Neuromuscular Re-education, Patient/Caregiver Education, Self-Care/Home Management, Sensory Integration,Soft Tissue Mobilization,Taping, Therapeutic Activities, Therapeutic Exercises, Vestibular Rehabilitation Modalities Cold Pack/Ice Massage,Hot Packs Next Visit Focus/Plan Next Note Type Treatment Note Next Visit Plan Review pelvic realignment exercises & standing calf stretch. Add ankler DF and eversion exercise with theraband in sitting. POC: Consider gentle flexibility for thoracic spine, hamstrings , glutes, etc Eventually, progress to [place] for gentle balance and strengthening such as therabands in standing
--- NOTE | 2024-06-02 09:46 | PT.OTN ---
Current Diagnoses Low back pain, unspecified (06/02/24) Unsteadiness on feet (06/02/24) Other abnormalities of gait and mobility (06/02/24) Physical Therapy Treatment Note PT-OP-A Visit Information Start: 05/17/24 07:20 Freq: Status: Active Protocol: Document 06/02/24 09:08 SP (Rec: 06/02/24 09:51 SP [id number]) Out-Patient Physical Therapy Visit Information Visit Information Visit Type Treatment Note Visit Note Medicare, for Life 01/19 after Eval Visit Start Time 09:08 Visit Stop Time 09:46 Visit Number 4 Number of DIRECTOR OF MARKETING ANALYTICS Visits 2 Evaluation Information Evaluation Date 05/17/24 Precautions Precautions Recent PE 05/03/24, [place] and states that right LE is completely occluded as far as PVD. Work on alignment, stretches and balance and not cardio given vascular issues. Check O2 sats and BP as needed . Pt is on blood thinner. PT-OP-B Current Condition Start: 05/17/24 07:20 Freq: Status: Active Protocol: Document 05/17/24 09:45 MB (Rec: 05/17/24 10:13 MB [id number]) Current Condition History of Current Condition Onset Date Back pain started 6 months ago Current Complaints A little bit of back pain and not wanting to do a lot, apathy History of Current Condition Pt reports 2/10 LBP. 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 Pt also takes a statin. Pt and states that his balance has been getting worse . Pt and report concern for apathy and he has had depression in the past but they don't see it now. 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 Pt is working in the yard, pouring concrete, working on the shed. They pay someone to mow lawn. Pt states that he started sitting more in recliner 6 months ago and that can be correlated with increased in LBP. His back pain has been better with moving more. Prior Treatments and Tests Brain, arterial and chest diagnostics in the past Treatment Goals Patient/Caregiver Goals To make improvements with balance and pain PT-OP-C Subjective Start: 05/17/24 07:20 Freq: Status: Active Protocol: Document 06/02/24 09:08 SP (Rec: 06/02/24 09:51 SP [id number]) OP-PT Subjective Patient Comments Patient Comments Pt reports still back pain sitting but more aggrevating knows its there but not debilitating then pain but better than was pre PT. Can sit for 3 min before needs get up and move to feel better. PT-OP-D Balance Start: 05/17/24 07:20 Freq: Status: Active Protocol: Document 05/17/24 09:45 MB (Rec: 05/17/24 11:05 MB [id number]) Balance Tests Other Other Balance Tests Performed Standing in socks: Romberg with close superv and assistance to get into position and LOB to left x2 with Romberg with EC, pt cannot get into Tandem B with assistance without LOB PT-OP-G Mobility & Gait Start: 05/17/24 07:20 Freq: Status: Active Protocol: Document 05/17/24 09:45 MB (Rec: 05/17/24 11:05 MB [id number]) OP Gait Assessment Comments Gait Comments Slow gait noted PT-OP-J Posture/Palpation/Skin Start: 05/17/24 07:20 Freq: Status: Active Protocol: Document 05/17/24 09:45 MB (Rec: 05/17/24 11:05 MB [id number]) Posture Evaluation Comments Posture Comments Posture standing in socks: B rounded shoulders, decreased cervical lordosis and upper thoracic kyphosis and then curvature changes and reverses posteriorly T4-7 area and this is close to pt's origin of 3/10 pain, right iliac crest is mildly higher than the left. Pt imbalanced in standing with rigid spine and so PT does not push lumbar or thoracic mobility testing today in standing or sitting. PT-OP-M Strength Start: 05/17/24 11:05 Freq: Status: Active Protocol: Document 05/17/24 09:45 MB (Rec: 05/17/24 11:10 MB [id number]) Hip Strength Hip Manual Muscle Testing Left Flexion (L2) 4+ Good+ Right Flexion (L2) 4 Good Comments LE MMT performed in sitting today Knee Strength Knee Manual Muscle Testing Bilateral Flexion (S2) 5 Normal Extension (L3) 5 Normal Ankle/Foot Strength Ankle and Foot Manual Muscle Testing Bilateral Dorsiflexion (L4) 5 Normal Toe Strength Toe Manual Muscle Testing Left Great Toe Extension 5 Normal Right Great Toe Extension 5 Normal PT-OP-Q Treatments Start: 05/17/24 07:20 Freq: Status: Active Protocol: Document 06/02/24 09:08 SP (Rec: 06/02/24 09:51 SP [id number]) Therapeutic Exercises Supine Exercises piriformis stretch Supine Exercise Name added to HEP Side bilateral Equipment Used ankle over opp knee Reps/Minutes 30-60 sec qd-bid Comments good feedback glut stretch HS stretch /c AP Supine Exercise Name added to HEP Side bilateral Equipment Used grasp behind thigh lift lower leg ceiling Reps/Minutes x30 reps AP Comments good HS stretch Sitting Exercises DF & EV Sitting Exercise Name added to HEP Side bilateral Resistance TB #2 around forefoot Reps/Minutes x20 reps Other Exercises STS Reps/Minutes 20 reps consecutive today. ( goal 30 per PT) Comments 18 chair- good tiring effort quads PT-OP-T Assessment and Plan Start: 05/17/24 07:20 Freq: Status: Active Protocol: Document 06/02/24 09:08 SP (Rec: 06/02/24 09:51 SP [id number]) Physical Therapy Assessment Goals 4 Impairment Lack of HEP Charge Account Authorizer Goal (LTG) Pt will perform progressive HEP with I including pelvic realignment exercises, gentle flexibility and strengthening and balance exercises to improve alignment, pain and balance. LTG Duration 8 weeks 3 Impairment Slower gait speed Charge Account Authorizer Goal (LTG) Pt will perform TUG in no more than 10 sec to decrease fall risk and improve functional balance with transfers and gait. LTG Duration 8 weeks 2 Impairment Slower gait speed observed, history PVD Charge Account Authorizer Goal (LTG) Pt will gait train at least 1400 feet in 6 minutes to improve community ambulation functional balance in the community. LTG Duration 8 weeks 1 Impairment Evidence of imbalance Charge Account Authorizer Goal (LTG) Pt will perform WNLs on FGA to decrease fall risk. LTG Duration 8 weeks Assessment Summary Assessment Pt good response to newly added flexibility stretches supine this tx with reported less tension in LB and hips and resisted DF and EV for support strengthening foot clearance walking. Provided HOs for recall, asked to bring HOs each tx. Pt stated felt less tightness end tx. Didn't get to walking, with time left of tx. Will progress upright next tx. Physical Therapy Plan Frequency and Duration Frequency of Treatment 1-2x/wk Duration of treatment (weeks) 8 Plan of Care Start Date 05/17/24 Plan of Care End Date 07/18/24 Therapeutic Interventions Therapeutic Interventions Balance Training,Canalithic Repositioning,Coordination Training,Gait Training,Home Exercise Program,Joint Mobilizations,Manual Therapy, Neuromuscular Re-education, Patient/Caregiver Education, Self-Care/Home Management, Sensory Integration,Soft Tissue Mobilization,Taping, Therapeutic Activities, Therapeutic Exercises, Vestibular Rehabilitation Modalities Cold Pack/Ice Massage,Hot Packs Next Visit Focus/Plan Next Note Type Treatment Note Next Visit Plan Recheck DF/EV and piroformis and HS stretch. Review pelvic realignment exercises & standing calf stretch. POC: Consider gentle flexibility for thoracic spine, hamstrings , glutes, etc Eventually, progress to [place] for gentle balance and strengthening such as therabands in standing
--- NOTE | 2024-06-07 09:43 | PT.OTN ---
Current Diagnoses Low back pain, unspecified (06/07/24) Unsteadiness on feet (06/07/24) Other abnormalities of gait and mobility (06/07/24) Physical Therapy Treatment Note PT-OP-A Visit Information Start: 05/17/24 07:20 Freq: Status: Active Protocol: Document 06/07/24 08:56 MB (Rec: 06/07/24 09:43 MB [id number]) Out-Patient Physical Therapy Visit Information Visit Information Visit Type Treatment Note Visit Note Medicare, for Life Progress note next treatment ( by 06/17) Visit Start Time 08:56 Visit Stop Time 09:36 Visit Number 5 Number of RATCHET SETTER Visits 0 Evaluation Information Evaluation Date 05/17/24 Precautions Precautions Recent PE 05/03/24, [place] and states that right LE is completely occluded as far as PVD. Work on alignment, stretches and balance and not cardio given vascular issues. Check O2 sats and BP as needed . Pt is on blood thinner. PT-OP-B Current Condition Start: 05/17/24 07:20 Freq: Status: Active Protocol: Document 05/17/24 09:45 MB (Rec: 05/17/24 10:13 MB [id number]) Current Condition History of Current Condition Onset Date Back pain started 6 months ago Current Complaints A little bit of back pain and not wanting to do a lot, apathy History of Current Condition Pt reports 2/10 LBP. 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 Pt also takes a statin. Pt and states that his balance has been getting worse . Pt and report concern for apathy and he has had depression in the past but they don't see it now. 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 Pt is working in the yard, pouring concrete, working on the shed. They pay someone to mow lawn. Pt states that he started sitting more in recliner 6 months ago and that can be correlated with increased in LBP. His back pain has been better with moving more. Prior Treatments and Tests Brain, arterial and chest diagnostics in the past Treatment Goals Patient/Caregiver Goals To make improvements with balance and pain PT-OP-C Subjective Start: 05/17/24 07:20 Freq: Status: Active Protocol: Document 06/07/24 08:56 MB (Rec: 06/07/24 09:43 MB [id number]) OP-PT Subjective Patient Comments Patient Comments Pt is doing exercises once a day. Sometimes, he doesn't notice any difference and sometimes, he notices his movements are better. He is being thoughtful about picking up his feet. PT-OP-D Balance Start: 05/17/24 07:20 Freq: Status: Active Protocol: Document 05/17/24 09:45 MB (Rec: 05/17/24 11:05 MB [id number]) Balance Tests Other Other Balance Tests Performed Standing in socks: Romberg with close superv and assistance to get into position and LOB to left x2 with Romberg with EC, pt cannot get into Tandem B with assistance without LOB PT-OP-G Mobility & Gait Start: 05/17/24 07:20 Freq: Status: Active Protocol: Document 05/17/24 09:45 MB (Rec: 05/17/24 11:05 MB [id number]) OP Gait Assessment Comments Gait Comments Slow gait noted PT-OP-J Posture/Palpation/Skin Start: 05/17/24 07:20 Freq: Status: Active Protocol: Document 05/17/24 09:45 MB (Rec: 05/17/24 11:05 MB [id number]) Posture Evaluation Comments Posture Comments Posture standing in socks: B rounded shoulders, decreased cervical lordosis and upper thoracic kyphosis and then curvature changes and reverses posteriorly T4-7 area and this is close to pt's origin of 3/10 pain, right iliac crest is mildly higher than the left. Pt imbalanced in standing with rigid spine and so PT does not push lumbar or thoracic mobility testing today in standing or sitting. PT-OP-M Strength Start: 05/17/24 11:05 Freq: Status: Active Protocol: Document 05/17/24 09:45 MB (Rec: 05/17/24 11:10 MB [id number]) Hip Strength Hip Manual Muscle Testing Left Flexion (L2) 4+ Good+ Right Flexion (L2) 4 Good Comments LE MMT performed in sitting today Knee Strength Knee Manual Muscle Testing Bilateral Flexion (S2) 5 Normal Extension (L3) 5 Normal Ankle/Foot Strength Ankle and Foot Manual Muscle Testing Bilateral Dorsiflexion (L4) 5 Normal Toe Strength Toe Manual Muscle Testing Left Great Toe Extension 5 Normal Right Great Toe Extension 5 Normal PT-OP-Q Treatments Start: 05/17/24 07:20 Freq: Status: Active Protocol: Document 06/07/24 08:56 MB (Rec: 06/07/24 09:43 MB [id number]) Therapeutic Exercises Supine Exercises piriformis stretch Side bilateral Comments 1 rep each leg, 1' hold HS stretch /c AP Side bilateral Reps/Minutes 30 APs, 1 rep each Comments [place] leg bent, hold behind stretching leg Pelvic realigment exercises Supine Exercise Name Feet together ball squeeze iso , knee opp ankle iso, thigh press iso Side bilateral Equipment Used Blue ball between knees Reps/Minutes 5 reps, 3 sec hold all exercises in order Sitting Exercises DF & EV Sitting Exercise Name Cues for form and to keep resistance on the band Side bilateral Resistance TB #2 around forefoot Reps/Minutes x20 reps Standing Exercises calf stretch Side bilateral Comments 2 reps each leg, gastroc and soleus stretches Other Exercises STS Other Exercise Name 30 sec STS today Comments 12 reps, standing up from [employer] Gait Training Gait Activity TUG Comments TUG in 10 sec today, goal met 6MWT Comments Pt gait trains 1354 feet in 6 minutes and he has increased functional length left foot with gait and he appears to use left arm to propel left foot forward, increased time on left foot with gait and pt tends to list to right greater with increased gait distance. He has increased B lateral weight shift with gait and wide DOLLY Self-Care/Home Management Treatment Education Other Education Ed pt in benefits of making fluids count as far as increasing non-caffeinated fluid intake and drinking water before coffee in the morning, checked orthostatcis today and discussed findings PT-OP-T Assessment and Plan Start: 05/17/24 07:20 Freq: Status: Active Protocol: Document 06/07/24 08:56 MB (Rec: 06/07/24 09:43 MB [id number]) Physical Therapy Assessment Goals 4 Impairment Lack of HEP Correction Goal (LTG) Pt will perform progressive HEP with I including pelvic realignment exercises, gentle flexibility and strengthening and balance exercises to improve alignment, pain and balance. 06/07/24: Pt is performing pelvic realignment exercises, 3 stretches, STS and ankle eversion and DF strengthening in sitting LTG Duration 8 weeks 3 Impairment Slower gait speed Correction Goal (LTG) Pt will perform TUG in no more than 10 sec to decrease fall risk and improve functional balance with transfers and gait. 06/07/24: TUG in 10 sec LTG Duration Met 06/07 2 Impairment Slower gait speed observed, history PVD Correction Goal (LTG) Pt will gait train at least 1400 feet in 6 minutes to improve community ambulation functional balance in the community. 06/07/24: Pt gait trains 1354 feet in 6 minutes LTG Duration 8 weeks 1 Impairment Evidence of imbalance Correction Goal (LTG) Pt will perform WNLs on FGA to decrease fall risk. LTG Duration 8 weeks Assessment Summary Assessment Orthostatic assessment with BP and HR in LUE: supine 136/74, 61; standing 122/67, 61; standing 1' 129/75, 61. O2 sats are 97% on RA in supine. Pt presents with balance impairment with gait and ongoing balance testing and exercise progression in future treatments. Physical Therapy Plan Frequency and Duration Frequency of Treatment 1-2x/wk Duration of treatment (weeks) 8 Plan of Care Start Date 05/17/24 Plan of Care End Date 07/18/24 Therapeutic Interventions Therapeutic Interventions Balance Training,Canalithic Repositioning,Coordination Training,Gait Training,Home Exercise Program,Joint Mobilizations,Manual Therapy, Neuromuscular Re-education, Patient/Caregiver Education, Self-Care/Home Management, Sensory Integration,Soft Tissue Mobilization,Taping, Therapeutic Activities, Therapeutic Exercises, Vestibular Rehabilitation Modalities Cold Pack/Ice Massage,Hot Packs Next Visit Focus/Plan Next Note Type Progress Note Next Visit Plan FGA and add balance exercises Consider Mariano stretch and/or doorway pect, QL and hip flexor stretches Eventually, progress to [place] for gentle balance and strengthening such as therabands in standing
--- NOTE | 2024-06-15 08:17 | PT.OPPOC ---
Physical, Occupational & Speech Therapy At [facility] Current Diagnoses Low back pain, unspecified (06/15/24) Unsteadiness on feet (06/15/24) Other abnormalities of gait and mobility (06/15/24) Visit Care Team Role Provider Type Megan Ba DO Attending Provider Physician Family Provider Primary Care Provider Referring Provider Specialty: Medical Address: [address] [place] [address], [address], [place], [address] Email: [email or web address] Plan Of Care PT-OP-B Current Condition Start: 05/17/24 07:20 Freq: Status: Active Protocol: Document 05/17/24 09:45 MB (Rec: 05/17/24 10:13 MB [id number]) Current Condition History of Current Condition Onset Date Back pain started 6 months ago Current Complaints A little bit of back pain and not wanting to do a lot, apathy History of Current Condition Pt reports 2/10 LBP. 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 Pt also takes a statin. Pt and states that his balance has been getting worse . Pt and report concern for apathy and he has had depression in the past but they don't see it now. 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 Pt is working in the yard, pouring concrete, working on the shed. They pay someone to mow lawn. Pt states that he started sitting more in recliner 6 months ago and that can be correlated with increased in LBP. His back pain has been better with moving more. Prior Treatments and Tests Brain, arterial and chest diagnostics in the past Treatment Goals Patient/Caregiver Goals To make improvements with balance and pain PT-OP-T Assessment and Plan Start: 05/17/24 07:20 Freq: Status: Active Protocol: Document 06/15/24 07:31 MB (Rec: 06/15/24 08:16 MB [id number]) Physical Therapy Assessment Goals 4 Impairment Lack of HEP Care Home Goal (LTG) Pt will perform progressive HEP with I including pelvic realignment exercises, gentle flexibility and strengthening and balance exercises to improve alignment, pain and balance. 06/07/24: Pt is performing pelvic realignment exercises, 3 stretches, STS and ankle eversion and DF strengthening in sitting 06/15/24: Pt is doing his exercises and he feels they are useful, especially the stretching ones LTG Duration 8 weeks 2 Impairment Slower gait speed observed, history PVD Care Home Goal (LTG) Pt will gait train at least 1400 feet in 6 minutes to improve community ambulation functional balance in the community. 06/07/24: Pt gait trains 1354 feet in 6 minutes 06/15/24: LTG Duration 8 weeks 1 Impairment Evidence of imbalance Farm Mortgage Agent Goal (LTG) Pt will perform WNLs on FGA to decrease fall risk. 06/15/24 Score is 10/10 LTG Duration 8 weeks Assessment Summary Assessment Re-ed pt on log rolling today. Pt does not wear hearing aides today and he walks less distances for 6MWT. Pt reports 6 months of dizziness or trouble maneuvering and PT will perform orthostatic and VOR screen in future. Pt is progressing towards HEP goals and progressed balance today. He met TUG but has not progressed consistently with 6MWT and wonder if pt has a cardiac component to presentation. Physical Therapy Plan Frequency and Duration Frequency of Treatment 1-2x/wk Duration of treatment (weeks) 8 Plan of Care Start Date 06/15/24 Plan of Care End Date 08/15/24 Therapeutic Interventions Therapeutic Interventions Balance Training,Canalithic Repositioning,Coordination Training,Gait Training,Home Exercise Program,Joint Mobilizations,Manual Therapy, Neuromuscular Re-education, Patient/Caregiver Education, Self-Care/Home Management, Sensory Integration,Soft Tissue Mobilization,Taping, Therapeutic Activities, Therapeutic Exercises, Vestibular Rehabilitation Modalities Cold Pack/Ice Massage,Hot Packs Next Visit Focus/Plan Next Note Type Treatment Note Next Visit Plan Check orthostatics and with primary PT, screen VOR Review balance exercises in hallway, pt has handout Consider doorway pect, QL and hip flexor stretches Eventually, progress to [place] for gentle balance and strengthening such as therabands in standing Plan of Care Dates Plan of Care Start Date 06/15/24 Plan of Care End Date 08/15/24 Electronically Signed by: Serenity Cid PT 06/15/24 [id number] If you are in agreement with this Plan of Care, please return a signed and dated copy. I have reviewed this Plan of Care and certify that the skilled therapy services above are required to meet the patient?s needs. Physician Signature Date Printed Name and Credentials Clinical Instructor Signature Printed Name and Credentials
--- NOTE | 2024-06-15 08:17 | PT.OTN ---
Current Diagnoses Low back pain, unspecified (06/15/24) Unsteadiness on feet (06/15/24) Other abnormalities of gait and mobility (06/15/24) Physical Therapy Treatment Note PT-OP-A Visit Information Start: 05/17/24 07:20 Freq: Status: Active Protocol: Document 06/15/24 07:31 MB (Rec: 06/15/24 08:16 MB [id number]) Out-Patient Physical Therapy Visit Information Visit Information Visit Type Progress Note Visit Note Medicare, for Life Next progress note by 07/15/24 Visit Start Time 07:31 Visit Stop Time 08:11 Visit Number 6 Number of COMMUNICATION CENTER COORDINATOR Visits 0 Evaluation Information Evaluation Date 05/17/24 Precautions Precautions Recent PE 05/03/24, [place] and states that right LE is completely occluded as far as PVD. Work on alignment, stretches and balance and not cardio given vascular issues. Check O2 sats and BP as needed . Pt is on blood thinner. PT-OP-B Current Condition Start: 05/17/24 07:20 Freq: Status: Active Protocol: Document 05/17/24 09:45 MB (Rec: 05/17/24 10:13 MB [id number]) Current Condition History of Current Condition Onset Date Back pain started 6 months ago Current Complaints A little bit of back pain and not wanting to do a lot, apathy History of Current Condition Pt reports 2/10 LBP. 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 Pt also takes a statin. Pt and states that his balance has been getting worse . Pt and report concern for apathy and he has had depression in the past but they don't see it now. 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 Pt is working in the yard, pouring concrete, working on the shed. They pay someone to mow lawn. Pt states that he started sitting more in recliner 6 months ago and that can be correlated with increased in LBP. His back pain has been better with moving more. Prior Treatments and Tests Brain, arterial and chest diagnostics in the past Treatment Goals Patient/Caregiver Goals To make improvements with balance and pain PT-OP-C Subjective Start: 05/17/24 07:20 Freq: Status: Active Protocol: Document 06/15/24 07:31 MB (Rec: 06/15/24 08:16 MB [id number]) OP-PT Subjective Patient Comments Patient Comments Pt feels pretty good. He is walking better though he was stumbling around after he worked in the yard yesterday. PT-OP-D Balance Start: 05/17/24 07:20 Freq: Status: Active Protocol: Document 05/17/24 09:45 MB (Rec: 05/17/24 11:05 MB [id number]) Balance Tests Other Other Balance Tests Performed Standing in socks: Romberg with close superv and assistance to get into position and LOB to left x2 with Romberg with EC, pt cannot get into Tandem B with assistance without LOB PT-OP-G Mobility & Gait Start: 05/17/24 07:20 Freq: Status: Active Protocol: Document 05/17/24 09:45 MB (Rec: 05/17/24 11:05 MB [id number]) OP Gait Assessment Comments Gait Comments Slow gait noted PT-OP-J Posture/Palpation/Skin Start: 05/17/24 07:20 Freq: Status: Active Protocol: Document 05/17/24 09:45 MB (Rec: 05/17/24 11:05 MB [id number]) Posture Evaluation Comments Posture Comments Posture standing in socks: B rounded shoulders, decreased cervical lordosis and upper thoracic kyphosis and then curvature changes and reverses posteriorly T4-7 area and this is close to pt's origin of 3/10 pain, right iliac crest is mildly higher than the left. Pt imbalanced in standing with rigid spine and so PT does not push lumbar or thoracic mobility testing today in standing or sitting. PT-OP-M Strength Start: 05/17/24 11:05 Freq: Status: Active Protocol: Document 05/17/24 09:45 MB (Rec: 05/17/24 11:10 MB [id number]) Hip Strength Hip Manual Muscle Testing Left Flexion (L2) 4+ Good+ Right Flexion (L2) 4 Good Comments LE MMT performed in sitting today Knee Strength Knee Manual Muscle Testing Bilateral Flexion (S2) 5 Normal Extension (L3) 5 Normal Ankle/Foot Strength Ankle and Foot Manual Muscle Testing Bilateral Dorsiflexion (L4) 5 Normal Toe Strength Toe Manual Muscle Testing Left Great Toe Extension 5 Normal Right Great Toe Extension 5 Normal PT-OP-Q Treatments Start: 05/17/24 07:20 Freq: Status: Active Protocol: Document 06/15/24 07:31 MB (Rec: 06/15/24 08:16 MB [id number]) Therapeutic Exercises Supine Exercises Mariano stretch opposite KTC Side bilateral Reps/Minutes 2 reps Comments 45 sec to 1 min hold, leg off to side of bed DKTC Comments Does not provide relief or stretch for pt Gait Training Gait Activity 6MWT Comments Pt gait trains 1311 feet in 6 minutes and he occ lists side to side and more to the right with gait and brushes his hand against the wall and steps on the right during gait. Pt is not wearing hearing aides today. He appears to spend more time on left leg with gait. Neuro Re-Education Treatment Balance Activities FGA balance activities at home Comments Performed one rep of each and will perform this for HEP: sliding index finger nail along wall, forward walk head turns right and left, forward walk head turns up and down, forward walk eyes closed, backwards walk eyes open: five sequences FGA Comments FGA tasks are challenging and score is 12/30 PT-OP-T Assessment and Plan Start: 05/17/24 07:20 Freq: Status: Active Protocol: Document 06/15/24 07:31 MB (Rec: 06/15/24 08:16 MB [id number]) Physical Therapy Assessment Goals 4 Impairment Lack of HEP Long-Term Goal (LTG) Pt will perform progressive HEP with I including pelvic realignment exercises, gentle flexibility and strengthening and balance exercises to improve alignment, pain and balance. 06/07/24: Pt is performing pelvic realignment exercises, 3 stretches, STS and ankle eversion and DF strengthening in sitting 06/15/24: Pt is doing his exercises and he feels they are useful, especially the stretching ones LTG Duration 8 weeks 2 Impairment Slower gait speed observed, history PVD Long-Term Goal (LTG) Pt will gait train at least 1400 feet in 6 minutes to improve community ambulation functional balance in the community. 06/07/24: Pt gait trains 1354 feet in 6 minutes 06/15/24: LTG Duration 8 weeks 1 Impairment Evidence of imbalance Long-Term Goal (LTG) Pt will perform WNLs on FGA to decrease fall risk. 06/15/24 LTG Duration 8 weeks Assessment Summary Assessment Re-ed pt on log rolling today. Pt does not wear hearing aides today and he walks less distances for 6MWT. Pt reports 6 months of dizziness or trouble maneuvering and PT will perform orthostatic and VOR screen in future. Pt is progressing towards HEP goals and progressed balance today. He met TUG but has not progressed consistently with 6MWT and wonder if pt has a cardiac component to presentation. Physical Therapy Plan Frequency and Duration Frequency of Treatment 1-2x/wk Duration of treatment (weeks) 8 Plan of Care Start Date 05/17/24 Plan of Care End Date 07/18/24 Therapeutic Interventions Therapeutic Interventions Balance Training,Canalithic Repositioning,Coordination Training,Gait Training,Home Exercise Program,Joint Mobilizations,Manual Therapy, Neuromuscular Re-education, Patient/Caregiver Education, Self-Care/Home Management, Sensory Integration,Soft Tissue Mobilization,Taping, Therapeutic Activities, Therapeutic Exercises, Vestibular Rehabilitation Modalities Cold Pack/Ice Massage,Hot Packs Next Visit Focus/Plan Next Note Type Treatment Note Next Visit Plan Check orthostatics and with primary PT, screen VOR Review balance exercises in hallway, pt has handout Consider doorway pect, QL and hip flexor stretches Eventually, progress to [place] for gentle balance and strengthening such as therabands in standing
--- NOTE | 2024-06-20 08:22 | PT.OTN ---
Current Diagnoses Low back pain, unspecified (06/20/24) Unsteadiness on feet (06/20/24) Other abnormalities of gait and mobility (06/20/24) Physical Therapy Treatment Note PT-OP-A Visit Information Start: 05/17/24 07:20 Freq: Status: Active Protocol: Document 06/20/24 07:34 SP (Rec: 06/20/24 08:23 SP [id number]) Out-Patient Physical Therapy Visit Information Visit Information Visit Type Treatment Note Visit Note 2/10 post PN Medicare, for Life Next progress note by 07/15/24 Visit Start Time 07:34 Visit Stop Time 08:22 Visit Number 7 Number of M[employer] SERVICES MANAGER Visits 1 Evaluation Information Evaluation Date 05/17/24 Precautions Precautions Recent PE 05/03/24, [place] and states that right LE is completely occluded as far as PVD. Work on alignment, stretches and balance and not cardio given vascular issues. Check O2 sats and BP as needed . Pt is on blood thinner. PT-OP-B Current Condition Start: 05/17/24 07:20 Freq: Status: Active Protocol: Document 05/17/24 09:45 MB (Rec: 05/17/24 10:13 MB [id number]) Current Condition History of Current Condition Onset Date Back pain started 6 months ago Current Complaints A little bit of back pain and not wanting to do a lot, apathy History of Current Condition Pt reports 2/10 LBP. 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 Pt also takes a statin. Pt and states that his balance has been getting worse . Pt and report concern for apathy and he has had depression in the past but they don't see it now. 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 Pt is working in the yard, pouring concrete, working on the shed. They pay someone to mow lawn. Pt states that he started sitting more in recliner 6 months ago and that can be correlated with increased in LBP. His back pain has been better with moving more. Prior Treatments and Tests Brain, arterial and chest diagnostics in the past Treatment Goals Patient/Caregiver Goals To make improvements with balance and pain PT-OP-C Subjective Start: 05/17/24 07:20 Freq: Status: Active Protocol: Document 06/20/24 07:34 SP (Rec: 06/20/24 08:23 SP [id number]) OP-PT Subjective Patient Comments Patient Comments Pt reports reports still has always there discomfort in L low back that comes around to front, worse when sitting but if leans forward doesn't notice as much, not sure why. States if frustrating lack of flexibility to touch his toes, demostrates barley reach his knees. PT-OP-D Balance Start: 05/17/24 07:20 Freq: Status: Active Protocol: Document 05/17/24 09:45 MB (Rec: 05/17/24 11:05 MB [id number]) Balance Tests Other Other Balance Tests Performed Standing in socks: Romberg with close superv and assistance to get into position and LOB to left x2 with Romberg with EC, pt cannot get into Tandem B with assistance without LOB PT-OP-G Mobility & Gait Start: 05/17/24 07:20 Freq: Status: Active Protocol: Document 05/17/24 09:45 MB (Rec: 05/17/24 11:05 MB [id number]) OP Gait Assessment Comments Gait Comments Slow gait noted PT-OP-J Posture/Palpation/Skin Start: 05/17/24 07:20 Freq: Status: Active Protocol: Document 05/17/24 09:45 MB (Rec: 05/17/24 11:05 MB [id number]) Posture Evaluation Comments Posture Comments Posture standing in socks: B rounded shoulders, decreased cervical lordosis and upper thoracic kyphosis and then curvature changes and reverses posteriorly T4-7 area and this is close to pt's origin of 3/10 pain, right iliac crest is mildly higher than the left. Pt imbalanced in standing with rigid spine and so PT does not push lumbar or thoracic mobility testing today in standing or sitting. PT-OP-M Strength Start: 05/17/24 11:05 Freq: Status: Active Protocol: Document 05/17/24 09:45 MB (Rec: 05/17/24 11:10 MB [id number]) Hip Strength Hip Manual Muscle Testing Left Flexion (L2) 4+ Good+ Right Flexion (L2) 4 Good Comments LE MMT performed in sitting today Knee Strength Knee Manual Muscle Testing Bilateral Flexion (S2) 5 Normal Extension (L3) 5 Normal Ankle/Foot Strength Ankle and Foot Manual Muscle Testing Bilateral Dorsiflexion (L4) 5 Normal Toe Strength Toe Manual Muscle Testing Left Great Toe Extension 5 Normal Right Great Toe Extension 5 Normal PT-OP-Q Treatments Start: 05/17/24 07:20 Freq: Status: Active Protocol: Document 06/20/24 07:34 SP (Rec: 06/20/24 08:23 SP [id number]) Therapeutic Exercises Supine Exercises Mariano stretch opposite KTC Supine Exercise Name HEP reviewed Side bilateral Equipment Used opp KTC Reps/Minutes 2 reps, 45 sec to 1 min hold, leg off to side of bed Comments reports good quad & hip flexor stretch Standing Exercises calf stretch Standing Exercise Name gastroc and soleus stretches Side bilateral Reps/Minutes 1. 2 reps each leg 30 each 2. pause R and L 10 SH x3 each side Comments 1. static stretch 2. trialed FREIDA trunk rotation slight less range R>L Manual Therapy Treatment Consent Patient gave verbal consent for manual Yes treatment Other Other Manual Treatments Prone supported pillow under pelvis: STMs B ES, B HS, B calves, hooklying: B psoas & iliacus. Neuro Re-Education Treatment Balance Activities Corner stretch Details semi tandem, tandem Equipment back to corner, chair front Comments cued wt shift into BLE, periscapular fac to assist midline. looking fwd initially then able to progress small head turns looking at items to support stability. Pt stated like /c HOs provided to carryover home balance progression. Improved with FGA balance activities at home Comments Performed one rep of each and will perform this for HEP: sliding index finger nail along wall, forward walk head turns right and left, forward walk head turns up and down, forward walk eyes closed, backwards walk eyes open: five sequences- Cues for increased DOLLY, noted couple times feet want scissor step or LOB lean more into side at wall. Self-Care/Home Management Treatment Activities Self-Care/Home Management Activities Orthostatics L UE manual: supiine 160/98 HR 62, SaO2 97% seated 160/100 HR 61 SaO2 97% standing 160/100 HR HR 61 Ziggy 94-95% Non symptomatic- states sometimes has dizziness if gets up fast. PT-OP-T Assessment and Plan Start: 05/17/24 07:20 Freq: Status: Active Protocol: Document 06/20/24 07:34 SP (Rec: 06/20/24 08:23 SP [id number]) Physical Therapy Assessment Goals 4 Impairment Lack of HEP Tailing Machine Operator Goal (LTG) Pt will perform progressive HEP with I including pelvic realignment exercises, gentle flexibility and strengthening and balance exercises to improve alignment, pain and balance. 06/07/24: Pt is performing pelvic realignment exercises, 3 stretches, STS and ankle eversion and DF strengthening in sitting 06/15/24: Pt is doing his exercises and he feels they are useful, especially the stretching ones LTG Duration 8 weeks 2 Impairment Slower gait speed observed, history PVD Tailing Machine Operator Goal (LTG) Pt will gait train at least 1400 feet in 6 minutes to improve community ambulation functional balance in the community. 06/07/24: Pt gait trains 1354 feet in 6 minutes 06/15/24: LTG Duration 8 weeks 1 Impairment Evidence of imbalance Assisted Goal (LTG) Pt will perform WNLs on FGA to decrease fall risk. 06/15/24 Score is 30 LTG Duration 8 weeks Assessment Summary Assessment Pt report of little dizziness with change of positions supine>sit>standing but goes away quickly, see orthostatics taken no significant change during mobility but diastolic elevated range. Pt reports little less tension in LB and posterior chain after manual tx. Incorporated stretching to support increased posterior chain flexibility per pt request hoping will assist balance. Good feedback to calf stretch with trunk rotation responded in can feel the stretch up posterior thigh and buttocks. Pt improved more midline stability confidence initiated corner balance then progressed to walking finger slide. Had 2 instances scissor step or trunk lean more wt shift into wall, states is challenging with head turns. Physical Therapy Plan Frequency and Duration Frequency of Treatment 1-2x/wk Duration of treatment (weeks) 8 Plan of Care Start Date 06/15/24 Plan of Care End Date 08/15/24 Therapeutic Interventions Therapeutic Interventions Balance Training,Canalithic Repositioning,Coordination Training,Gait Training,Home Exercise Program,Joint Mobilizations,Manual Therapy, Neuromuscular Re-education, Patient/Caregiver Education, Self-Care/Home Management, Sensory Integration,Soft Tissue Mobilization,Taping, Therapeutic Activities, Therapeutic Exercises, Vestibular Rehabilitation Modalities Cold Pack/Ice Massage,Hot Packs Next Visit Focus/Plan Next Note Type Treatment Note Next Visit Plan Continue check orthostatics and with primary PT, screen VOR Review balance exercises corner and in hallway, pt has handout. Consider adding tandem exercise but may be too challenging for pt Consider doorway pect, QL and hip flexor stretches Eventually, progress to [place] for gentle balance and strengthening such as therabands in standing
--- NOTE | 2024-06-22 08:42 | PT.OTN ---
Current Diagnoses Low back pain, unspecified (06/22/24) Unsteadiness on feet (06/22/24) Other abnormalities of gait and mobility (06/22/24) Physical Therapy Treatment Note PT-OP-A Visit Information Start: 05/17/24 07:20 Freq: Status: Active Protocol: Document 06/22/24 07:32 MB (Rec: 06/22/24 08:42 MB [id number]) Out-Patient Physical Therapy Visit Information Visit Information Visit Type Treatment Note Visit Note Medicare, for Life Next progress note by 07/15/24 Visit Start Time 07:32 Visit Stop Time 08:28 Visit Number 8 Number of SAND CARRIER Visits 0 Evaluation Information Evaluation Date 05/17/24 Precautions Precautions Pt is orthostatic on 06/22/24. Recent PE 05/03/24, [place] right LE completely occluded as far as PVD. Work on alignment, stretches and balance and not cardio given vascular issues. Pt is on blood thinner. PT-OP-B Current Condition Start: 05/17/24 07:20 Freq: Status: Active Protocol: Document 05/17/24 09:45 MB (Rec: 05/17/24 10:13 MB [id number]) Current Condition History of Current Condition Onset Date Back pain started 6 months ago Current Complaints A little bit of back pain and not wanting to do a lot, apathy History of Current Condition Pt reports 2/10 LBP. 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 Pt also takes a statin. Pt and states that his balance has been getting worse . Pt and report concern for apathy and he has had depression in the past but they don't see it now. 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 Pt is working in the yard, pouring concrete, working on the shed. They pay someone to mow lawn. Pt states that he started sitting more in recliner 6 months ago and that can be correlated with increased in LBP. His back pain has been better with moving more. Prior Treatments and Tests Brain, arterial and chest diagnostics in the past Treatment Goals Patient/Caregiver Goals To make improvements with balance and pain PT-OP-C Subjective Start: 05/17/24 07:20 Freq: Status: Active Protocol: Document 06/22/24 07:32 MB (Rec: 06/22/24 08:42 MB [id number]) OP-PT Subjective Patient Comments Patient Comments Pt reports that his LB is feeling a lot better but he still has low energy and light -headedness. He has worse light-headedness and imbalance with getting up at night to go to the BR. PT-OP-D Balance Start: 05/17/24 07:20 Freq: Status: Active Protocol: Document 05/17/24 09:45 MB (Rec: 05/17/24 11:05 MB [id number]) Balance Tests Other Other Balance Tests Performed Standing in socks: Romberg with close superv and assistance to get into position and LOB to left x2 with Romberg with EC, pt cannot get into Tandem B with assistance without LOB PT-OP-G Mobility & Gait Start: 05/17/24 07:20 Freq: Status: Active Protocol: Document 05/17/24 09:45 MB (Rec: 05/17/24 11:05 MB [id number]) OP Gait Assessment Comments Gait Comments Slow gait noted PT-OP-J Posture/Palpation/Skin Start: 05/17/24 07:20 Freq: Status: Active Protocol: Document 05/17/24 09:45 MB (Rec: 05/17/24 11:05 MB [id number]) Posture Evaluation Comments Posture Comments Posture standing in socks: B rounded shoulders, decreased cervical lordosis and upper thoracic kyphosis and then curvature changes and reverses posteriorly T4-7 area and this is close to pt's origin of 3/10 pain, right iliac crest is mildly higher than the left. Pt imbalanced in standing with rigid spine and so PT does not push lumbar or thoracic mobility testing today in standing or sitting. PT-OP-M Strength Start: 05/17/24 11:05 Freq: Status: Active Protocol: Document 05/17/24 09:45 MB (Rec: 05/17/24 11:10 MB [id number]) Hip Strength Hip Manual Muscle Testing Left Flexion (L2) 4+ Good+ Right Flexion (L2) 4 Good Comments LE MMT performed in sitting today Knee Strength Knee Manual Muscle Testing Bilateral Flexion (S2) 5 Normal Extension (L3) 5 Normal Ankle/Foot Strength Ankle and Foot Manual Muscle Testing Bilateral Dorsiflexion (L4) 5 Normal Toe Strength Toe Manual Muscle Testing Left Great Toe Extension 5 Normal Right Great Toe Extension 5 Normal PT-OP-Q Treatments Start: 05/17/24 07:20 Freq: Status: Active Protocol: Document 06/22/24 07:32 MB (Rec: 06/22/24 08:42 MB [id number]) Manual Therapy Treatment Consent Patient gave verbal consent for manual Yes treatment Other Other Manual Treatments Pt supine with head and legs supported: STM B ankle everters, PFs, hamstrings, vastus lateralis, glutes, hip flexors, QL and thoracic spine positional release. More tension B calf muscles and hamstrings, right iliopsoas and right superior thoracic spine. Self-Care/Home Management Treatment Education Caregiver Education Educate who is nurse at end of treatment about orthostatic findings and recommendations Other Education Provided and reviewed orthostatic hypotension handout: ed in benefits of making fluids count, consider one serving of electrolytes a day and a glass of water before coffee, possible compression hose, thigh high and 20 mmHg, review this with Dr. Jesenia valerio and also consider medication review Activities Self-Care/Home Management Activities Orthostatic assessment with BP and HR in LUE: supine 137/89, 70; standing 120/70, 77; standing 1' 144/66, 80. Pt is light-headed and feels posterior LOB with standing. PT-OP-T Assessment and Plan Start: 05/17/24 07:20 Freq: Status: Active Protocol: Document 06/22/24 07:32 MB (Rec: 06/22/24 08:42 MB [id number]) Physical Therapy Assessment Goals 4 Impairment Lack of HEP Electrical Assembly Supervisor Goal (LTG) Pt will perform progressive HEP with I including pelvic realignment exercises, gentle flexibility and strengthening and balance exercises to improve alignment, pain and balance. 06/07/24: Pt is performing pelvic realignment exercises, 3 stretches, STS and ankle eversion and DF strengthening in sitting 06/15/24: Pt is doing his exercises and he feels they are useful, especially the stretching ones LTG Duration 8 weeks 2 Impairment Slower gait speed observed, history PVD [facility] Goal (LTG) Pt will gait train at least 1400 feet in 6 minutes to improve community ambulation functional balance in the community. 06/07/24: Pt gait trains 1354 feet in 6 minutes 06/15/24: LTG Duration 8 weeks 1 Impairment Evidence of imbalance Electrical Assembly Supervisor Goal (LTG) Pt will perform WNLs on FGA to decrease fall risk. 06/15/24 Score is 12/30 LTG Duration 8 weeks Assessment Summary Assessment Pt presents with orthostatic hypotension and is symptomatic . He has a 17 mmHg systolic drop and 19 mmHg diastolic drop supine to stand today. Feel consistently high BP readings from last treatment date are d/t poor machine/cuff squeezing too tight consistently as it does not make sense for BP to remain consistent and consistently high with pt's presentation. Ed pt and and provided handout about orthostatic hypotension and encouraged pt to talk with Dr. Ba about this at next appointment. Con' t PT for balance, strengthening, manual work. His back is feeling a little better. Feel pt's c/o light- headedness and imbalance are partially/mostly from PVD/ vascular/orthostatic cause. Physical Therapy Plan Frequency and Duration Frequency of Treatment 1-2x/wk Duration of treatment (weeks) 8 Plan of Care Start Date 06/15/24 Plan of Care End Date 08/15/24 Therapeutic Interventions Therapeutic Interventions Balance Training,Canalithic Repositioning,Coordination Training,Gait Training,Home Exercise Program,Joint Mobilizations,Manual Therapy, Neuromuscular Re-education, Patient/Caregiver Education, Self-Care/Home Management, Sensory Integration,Soft Tissue Mobilization,Taping, Therapeutic Activities, Therapeutic Exercises, Vestibular Rehabilitation Modalities Cold Pack/Ice Massage,Hot Packs Next Visit Focus/Plan Next Note Type Treatment Note Next Visit Plan Every few treatments, continue check orthostatics (choose a functioning machine) and with primary PT, screen VOR Review balance exercises corner and in hallway, pt has handout. Consider adding tandem exercise but may be too challenging for pt Consider doorway pect, QL and hip flexor stretches Eventually, progress to [place] for gentle balance and strengthening such as therabands in standing
--- NOTE | 2024-06-27 08:17 | PT.OTN ---
Current Diagnoses Low back pain, unspecified (06/27/24) Unsteadiness on feet (06/27/24) Other abnormalities of gait and mobility (06/27/24) Physical Therapy Treatment Note PT-OP-A Visit Information Start: 05/17/24 07:20 Freq: Status: Active Protocol: Document 06/27/24 07:31 MB (Rec: 06/27/24 07:38 MB [id number]) Out-Patient Physical Therapy Visit Information Visit Information Visit Type Treatment Note Visit Note Medicare, [employer] Next progress note by 07/15/24 Visit Start Time 07:31 Visit Stop Time 08:11 Visit Number 9 Number of DELIVERY TRUCK DRIVER HEAVY Visits 0 Evaluation Information Evaluation Date 05/17/24 Precautions Precautions Recent PE 05/03/24, HOONAH right LE completely occluded as far as PVD. Work on alignment, stretches and balance and not cardio given vascular issues. Pt is on blood thinner. PT-OP-B Current Condition Start: 05/17/24 07:20 Freq: Status: Active Protocol: Document 05/17/24 09:45 MB (Rec: 05/17/24 10:13 MB [id number]) Current Condition History of Current Condition Onset Date Back pain started 6 months ago Current Complaints A little bit of back pain and not wanting to do a lot, apathy History of Current Condition Pt reports 2/10 LBP. 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 Pt also takes a statin. Pt and states that his balance has been getting worse . Pt and report concern for apathy and he has had depression in the past but they don't see it now. 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 Pt is working in the yard, pouring concrete, working on the shed. They pay someone to mow lawn. Pt states that he started sitting more in recliner 6 months ago and that can be correlated with increased in LBP. His back pain has been better with moving more. Prior Treatments and Tests Brain, arterial and chest diagnostics in the past Treatment Goals Patient/Caregiver Goals To make improvements with balance and pain PT-OP-C Subjective Start: 05/17/24 07:20 Freq: Status: Active Protocol: Document 06/27/24 07:31 MB (Rec: 06/27/24 07:38 MB [id number]) OP-PT Subjective Patient Comments Patient Comments Pt states that he had no trouble doing the balance exercise on Thursday and yesterday, he was all over the place. PT-OP-D Balance Start: 05/17/24 07:20 Freq: Status: Active Protocol: Document 05/17/24 09:45 MB (Rec: 05/17/24 11:05 MB [id number]) Balance Tests Other Other Balance Tests Performed Standing in socks: Romberg with close superv and assistance to get into position and LOB to left x2 with Romberg with EC, pt cannot get into Tandem B with assistance without LOB PT-OP-G Mobility & Gait Start: 05/17/24 07:20 Freq: Status: Active Protocol: Document 05/17/24 09:45 MB (Rec: 05/17/24 11:05 MB [id number]) OP Gait Assessment Comments Gait Comments Slow gait noted PT-OP-J Posture/Palpation/Skin Start: 05/17/24 07:20 Freq: Status: Active Protocol: Document 05/17/24 09:45 MB (Rec: 05/17/24 11:05 MB [id number]) Posture Evaluation Comments Posture Comments Posture standing in socks: B rounded shoulders, decreased cervical lordosis and upper thoracic kyphosis and then curvature changes and reverses posteriorly T4-7 area and this is close to pt's origin of 3/10 pain, right iliac crest is mildly higher than the left. Pt imbalanced in standing with rigid spine and so PT does not push lumbar or thoracic mobility testing today in standing or sitting. PT-OP-M Strength Start: 05/17/24 11:05 Freq: Status: Active Protocol: Document 05/17/24 09:45 MB (Rec: 05/17/24 11:10 MB [id number]) Hip Strength Hip Manual Muscle Testing Left Flexion (L2) 4+ Good+ Right Flexion (L2) 4 Good Comments LE MMT performed in sitting today Knee Strength Knee Manual Muscle Testing Bilateral Flexion (S2) 5 Normal Extension (L3) 5 Normal Ankle/Foot Strength Ankle and Foot Manual Muscle Testing Bilateral Dorsiflexion (L4) 5 Normal Toe Strength Toe Manual Muscle Testing Left Great Toe Extension 5 Normal Right Great Toe Extension 5 Normal PT-OP-Q Treatments Start: 05/17/24 07:20 Freq: Status: Active Protocol: Document 06/27/24 07:31 MB (Rec: 06/27/24 07:59 MB [id number]) Therapeutic Exercises Standing Exercises Three doorway stretches Equipment Used Doorway Comments Pect stretch, hip flexor stretch, QL stretch, performed B and added to HEP Manual Therapy Treatment Consent Patient gave verbal consent for manual Yes treatment Other Other Manual Treatments Pt supine with head and legs supported: STM B ankle everters, PFs, hamstrings, vastus lateralis, glutes, hip flexors, QL and thoracic spine positional release. Neuro Re-Education Treatment Balance Activities Corner stretch Details Semi tandem in corner Comments Tried twice on both sides up to 20 sec and cues to keep feet closer together FGA balance activities at home Comments Performed one rep of each and will perform this for HEP: sliding index finger nail along wall, forward walk head turns right and left, forward walk head turns up and down, forward walk eyes closed, backwards walk eyes open, tandem walking added with eyes open and two reps of this last none and one rep of the others. All exercises are challenging and require superv PT-OP-T Assessment and Plan Start: 05/17/24 07:20 Freq: Status: Active Protocol: Document 06/27/24 07:31 MB (Rec: 06/27/24 07:38 MB [id number]) Physical Therapy Assessment Goals 4 Impairment Lack of HEP Data Quality Consultant Goal (LTG) Pt will perform progressive HEP with I including pelvic realignment exercises, gentle flexibility and strengthening and balance exercises to improve alignment, pain and balance. 06/07/24: Pt is performing pelvic realignment exercises, 3 stretches, STS and ankle eversion and DF strengthening in sitting 06/15/24: Pt is doing his exercises and he feels they are useful, especially the stretching ones LTG Duration 8 weeks 2 Impairment Slower gait speed observed, history PVD Data Quality Consultant Goal (LTG) Pt will gait train at least 1400 feet in 6 minutes to improve community ambulation functional balance in the community. 06/07/24: Pt gait trains 1354 feet in 6 minutes 06/15/24: LTG Duration 8 weeks 1 Impairment Evidence of imbalance Data Quality Consultant Goal (LTG) Pt will perform WNLs on FGA to decrease fall risk. 06/15/24 Score is 12 LTG Duration 8 weeks Assessment Summary Assessment Progressed FGA exercises today and standing doorway stretch. Progress [place] exercises and monitor back pain and orthostatics. Physical Therapy Plan Frequency and Duration Frequency of Treatment 1-2x/wk Duration of treatment (weeks) 8 Plan of Care Start Date 06/15/24 Plan of Care End Date 08/15/24 Therapeutic Interventions Therapeutic Interventions Balance Training,Canalithic Repositioning,Coordination Training,Gait Training,Home Exercise Program,Joint Mobilizations,Manual Therapy, Neuromuscular Re-education, Patient/Caregiver Education, Self-Care/Home Management, Sensory Integration,Soft Tissue Mobilization,Taping, Therapeutic Activities, Therapeutic Exercises, Vestibular Rehabilitation Modalities Cold Pack/Ice Massage,Hot Packs Next Visit Focus/Plan Next Note Type Treatment Note Next Visit Plan Every few treatments, continue check orthostatics (choose a functioning machine) and with primary PT, screen VOR Eventually, progress to [place] for gentle balance and strengthening such as therabands in standing
--- NOTE | 2024-06-29 08:19 | PT.OTN ---
Current Diagnoses Low back pain, unspecified (06/29/24) Unsteadiness on feet (06/29/24) Other abnormalities of gait and mobility (06/29/24) Physical Therapy Treatment Note PT-OP-A Visit Information Start: 05/17/24 07:20 Freq: Status: Active Protocol: Document 06/29/24 07:36 SP (Rec: 06/29/24 08:18 SP [id number]) Out-Patient Physical Therapy Visit Information Visit Information Visit Type Treatment Note Visit Note Medicare, for Life Next progress note by 07/15/24 5/10 after PN Visit Start Time 07:36 Visit Stop Time 08:16 Visit Number 10 Number of SIDE PULLER Visits 1 Evaluation Information Evaluation Date 05/17/24 Precautions Precautions Recent PE 05/03/24, ROSEBUD right LE completely occluded as far as PVD. Work on alignment, stretches and balance and not cardio given vascular issues. Pt is on blood thinner. PT-OP-B Current Condition Start: 05/17/24 07:20 Freq: Status: Active Protocol: Document 05/17/24 09:45 MB (Rec: 05/17/24 10:13 MB [id number]) Current Condition History of Current Condition Onset Date Back pain started 6 months ago Current Complaints A little bit of back pain and not wanting to do a lot, apathy History of Current Condition Pt reports 2/10 LBP. 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 Pt also takes a statin. Pt and states that his balance has been getting worse . Pt and report concern for apathy and he has had depression in the past but they don't see it now. 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 Pt is working in the yard, pouring concrete, working on the shed. They pay someone to mow lawn. Pt states that he started sitting more in recliner 6 months ago and that can be correlated with increased in LBP. His back pain has been better with moving more. Prior Treatments and Tests Brain, arterial and chest diagnostics in the past Treatment Goals Patient/Caregiver Goals To make improvements with balance and pain PT-OP-C Subjective Start: 05/17/24 07:20 Freq: Status: Active Protocol: Document 06/29/24 07:36 SP (Rec: 06/29/24 08:18 SP [id number]) OP-PT Subjective Patient Comments Patient Comments Pt reports frustrated not steady when doing walking head turns as HEP home. Pt reports does have times that is shortness of breath with not much activity. States feels fine coming in today. He reports 15 lb weight loss in 6 months. PT-OP-D Balance Start: 05/17/24 07:20 Freq: Status: Active Protocol: Document 05/17/24 09:45 MB (Rec: 05/17/24 11:05 MB [id number]) Balance Tests Other Other Balance Tests Performed Standing in socks: Romberg with close superv and assistance to get into position and LOB to left x2 with Romberg with EC, pt cannot get into Tandem B with assistance without LOB PT-OP-G Mobility & Gait Start: 05/17/24 07:20 Freq: Status: Active Protocol: Document 05/17/24 09:45 MB (Rec: 05/17/24 11:05 MB [id number]) OP Gait Assessment Comments Gait Comments Slow gait noted PT-OP-J Posture/Palpation/Skin Start: 05/17/24 07:20 Freq: Status: Active Protocol: Document 05/17/24 09:45 MB (Rec: 05/17/24 11:05 MB [id number]) Posture Evaluation Comments Posture Comments Posture standing in socks: B rounded shoulders, decreased cervical lordosis and upper thoracic kyphosis and then curvature changes and reverses posteriorly T4-7 area and this is close to pt's origin of 3/10 pain, right iliac crest is mildly higher than the left. Pt imbalanced in standing with rigid spine and so PT does not push lumbar or thoracic mobility testing today in standing or sitting. PT-OP-M Strength Start: 05/17/24 11:05 Freq: Status: Active Protocol: Document 05/17/24 09:45 MB (Rec: 05/17/24 11:10 MB [id number]) Hip Strength Hip Manual Muscle Testing Left Flexion (L2) 4+ Good+ Right Flexion (L2) 4 Good Comments LE MMT performed in sitting today Knee Strength Knee Manual Muscle Testing Bilateral Flexion (S2) 5 Normal Extension (L3) 5 Normal Ankle/Foot Strength Ankle and Foot Manual Muscle Testing Bilateral Dorsiflexion (L4) 5 Normal Toe Strength Toe Manual Muscle Testing Left Great Toe Extension 5 Normal Right Great Toe Extension 5 Normal PT-OP-Q Treatments Start: 05/17/24 07:20 Freq: Status: Active Protocol: Document 06/29/24 07:36 SP (Rec: 06/29/24 08:18 SP [id number]) Gait Training Gait Activity 6MWT Distance/Duration 1308ft Self-Care/Home Management Treatment Education Patient Education Safety Activities Self-Care/Home Management Activities Orthostatic assessment with BP , HR in primarily LUE: supine LUE : BP 172/106 and 175/101, 59HR, SaO2 97-98%, Manual 162/89 Standing RUE: 160/95 pre activity, post activity 172/108 HR 92-108 SaO2 93% LUE and RUE 172/98 compariable with automated cuff. Provided education to pt for normal values in BP and concerned activity if BP >200 systolic and >100 diastolic. PT-OP-T Assessment and Plan Start: 05/17/24 07:20 Freq: Status: Active Protocol: Document 06/29/24 07:36 SP (Rec: 06/29/24 08:18 SP [id number]) Physical Therapy Assessment Goals 4 Impairment Lack of HEP Senior Care Goal (LTG) Pt will perform progressive HEP with I including pelvic realignment exercises, gentle flexibility and strengthening and balance exercises to improve alignment, pain and balance. 06/07/24: Pt is performing pelvic realignment exercises, 3 stretches, STS and ankle eversion and DF strengthening in sitting 06/15/24: Pt is doing his exercises and he feels they are useful, especially the stretching ones LTG Duration 8 weeks 2 Impairment Slower gait speed observed, history PVD Data Analytics Chief Scientist Goal (LTG) Pt will gait train at least 1400 feet in 6 minutes to improve community ambulation functional balance in the community. 06/07/24: Pt gait trains 1354 feet in 6 minutes 06/15/24: LTG Duration 8 weeks 1 Impairment Evidence of imbalance Senior Care Goal (LTG) Pt will perform WNLs on FGA to decrease fall risk. 06/15/24 Score is 12/30 LTG Duration 8 weeks Assessment Summary Assessment PT and SIDE PULLER work together during treatment with Serenity Cid performing some tasks and asking SIDE PULLER to send this note to Dr. Ba to coordinate care. Pt BP variable and see findings in notes. Concerned about high BP and pt is not orthostatic today but dizzy with getting up and has history of vascular disease and PE. Vertebral Artery assessment neg for dizziness and nystagmus, increased neck tension to R. Proprioception assessment at feet supine: accurate assessment L 50%, R 100%. Seated: Oculomotor screen negative, normal eye tracking and no nystagmus, negative central screen with VOR cancellation and positive head thrust right for VOR hypofunction but likely not major issue for pt and neck stiff, especially with right rotation, B finger to nose negative/are normal. Ed pt to check BP at home and go to doctor sooner if remains high, his is a retired nurse. Physical Therapy Plan Frequency and Duration Frequency of Treatment 1-2x/wk Duration of treatment (weeks) 8 Plan of Care Start Date 06/15/24 Plan of Care End Date 08/15/24 Therapeutic Interventions Therapeutic Interventions Balance Training,Canalithic Repositioning,Coordination Training,Gait Training,Home Exercise Program,Joint Mobilizations,Manual Therapy, Neuromuscular Re-education, Patient/Caregiver Education, Self-Care/Home Management, Sensory Integration,Soft Tissue Mobilization,Taping, Therapeutic Activities, Therapeutic Exercises, Vestibular Rehabilitation Modalities Cold Pack/Ice Massage,Hot Packs Next Visit Focus/Plan Next Note Type Treatment Note Next Visit Plan Every few treatments, continue check orthostatics (choose a functioning machine) and with primary PT, screen VOR Eventually, progress to [place] for gentle balance and strengthening such as therabands in standing
--- NOTE | 2024-06-29 11:04 | PT-OP ANOTE ---
PT receives message from front office that pt and would like call back regarding BP issues today at PT. PT attempts to call and there is no answer and no identifying information on voice message and so PT does not leave message.
--- NOTE | 2024-07-04 08:04 | PT.OTN ---
Current Diagnoses Low back pain, unspecified (07/04/24) Unsteadiness on feet (07/04/24) Other abnormalities of gait and mobility (07/04/24) Physical Therapy Treatment Note PT-OP-A Visit Information Start: 05/17/24 07:20 Freq: Status: Active Protocol: Document 07/04/24 07:27 MB (Rec: 07/04/24 08:02 MB [id number]) Out-Patient Physical Therapy Visit Information Visit Information Visit Type Treatment Note Visit Note Medicare, [employer] Next progress note by 07/15/24 Visit Start Time 07:27 Visit Stop Time 08:07 Visit Number 11 Number of SEGMENT BLOCK LAYER Visits 0 Evaluation Information Evaluation Date 05/17/24 Precautions Precautions Recent PE 05/03/24, MILLE LACS right LE completely occluded as far as PVD. Work on alignment, stretches and balance and not cardio given vascular issues. Pt is on blood thinner. PT-OP-B Current Condition Start: 05/17/24 07:20 Freq: Status: Active Protocol: Document 05/17/24 09:45 MB (Rec: 05/17/24 10:13 MB [id number]) Current Condition History of Current Condition Onset Date Back pain started 6 months ago Current Complaints A little bit of back pain and not wanting to do a lot, apathy History of Current Condition Pt reports 2/10 LBP. 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 Pt also takes a statin. Pt and states that his balance has been getting worse . Pt and report concern for apathy and he has had depression in the past but they don't see it now. 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 Pt is working in the yard, pouring concrete, working on the shed. They pay someone to mow lawn. Pt states that he started sitting more in recliner 6 months ago and that can be correlated with increased in LBP. His back pain has been better with moving more. Prior Treatments and Tests Brain, arterial and chest diagnostics in the past Treatment Goals Patient/Caregiver Goals To make improvements with balance and pain PT-OP-C Subjective Start: 05/17/24 07:20 Freq: Status: Active Protocol: Document 07/04/24 07:27 MB (Rec: 07/04/24 08:02 MB [id number]) OP-PT Subjective Patient Comments Patient Comments Pt has appointment with Dr. Ba next month. His BP in LUE in sitting this morning at home was 150/99, 78. Pt's back pain feels a lot better. PT-OP-D Balance Start: 05/17/24 07:20 Freq: Status: Active Protocol: Document 05/17/24 09:45 MB (Rec: 05/17/24 11:05 MB [id number]) Balance Tests Other Other Balance Tests Performed Standing in socks: Romberg with close superv and assistance to get into position and LOB to left x2 with Romberg with EC, pt cannot get into Tandem B with assistance without LOB PT-OP-G Mobility & Gait Start: 05/17/24 07:20 Freq: Status: Active Protocol: Document 05/17/24 09:45 MB (Rec: 05/17/24 11:05 MB [id number]) OP Gait Assessment Comments Gait Comments Slow gait noted PT-OP-J Posture/Palpation/Skin Start: 05/17/24 07:20 Freq: Status: Active Protocol: Document 05/17/24 09:45 MB (Rec: 05/17/24 11:05 MB [id number]) Posture Evaluation Comments Posture Comments Posture standing in socks: B rounded shoulders, decreased cervical lordosis and upper thoracic kyphosis and then curvature changes and reverses posteriorly T4-7 area and this is close to pt's origin of 3/10 pain, right iliac crest is mildly higher than the left. Pt imbalanced in standing with rigid spine and so PT does not push lumbar or thoracic mobility testing today in standing or sitting. PT-OP-M Strength Start: 05/17/24 11:05 Freq: Status: Active Protocol: Document 05/17/24 09:45 MB (Rec: 05/17/24 11:10 MB [id number]) Hip Strength Hip Manual Muscle Testing Left Flexion (L2) 4+ Good+ Right Flexion (L2) 4 Good Comments LE MMT performed in sitting today Knee Strength Knee Manual Muscle Testing Bilateral Flexion (S2) 5 Normal Extension (L3) 5 Normal Ankle/Foot Strength Ankle and Foot Manual Muscle Testing Bilateral Dorsiflexion (L4) 5 Normal Toe Strength Toe Manual Muscle Testing Left Great Toe Extension 5 Normal Right Great Toe Extension 5 Normal PT-OP-Q Treatments Start: 05/17/24 07:20 Freq: Status: Active Protocol: Document 07/04/24 07:27 MB (Rec: 07/04/24 08:02 MB [id number]) Therapeutic Exercises Supine Exercises Log rolling Comments Ed pt to bend knees and roll over on side before sitting up Gentle core progression in hook lying Supine Exercise Name Set position pelvic tilt and abdominal drawing in Reps/Minutes Several reps, cues for form Comments Knee rocking, HS, mini march and knee fall out piriformis stretch Comments Demo'd today Pelvic realigment exercises Comments Verbally reviewed today Self-Care/Home Management Treatment Activities Self-Care/Home Management Activities BP and HR in LUE: supine: 174/ 98, 62. Re-ed pt about checking BP and following up with Dr. Ba about BP. PT-OP-T Assessment and Plan Start: 05/17/24 07:20 Freq: Status: Active Protocol: Document 07/04/24 07:27 MB (Rec: 07/04/24 08:02 MB [id number]) Physical Therapy Assessment Goals 4 Impairment Lack of HEP Retirement Goal (LTG) Pt will perform progressive HEP with I including pelvic realignment exercises, gentle flexibility and strengthening and balance exercises to improve alignment, pain and balance. 06/07/24: Pt is performing pelvic realignment exercises, 3 stretches, STS and ankle eversion and DF strengthening in sitting 06/15/24: Pt is doing his exercises and he feels they are useful, especially the stretching ones LTG Duration 8 weeks 2 Impairment Slower gait speed observed, history PVD Retirement Goal (LTG) Pt will gait train at least 1400 feet in 6 minutes to improve community ambulation functional balance in the community. 06/07/24: Pt gait trains 1354 feet in 6 minutes 06/15/24: LTG Duration 8 weeks 1 Impairment Evidence of imbalance Falsework Builder Goal (LTG) Pt will perform WNLs on FGA to decrease fall risk. 06/15/24 Score is 12/30 LTG Duration 8 weeks Assessment Summary Assessment Pt tends to hold his breath and his face gets red with abdominal exercises today and he has trouble regulating breathing and so cues for breathing with exercises. Review one more time and add hip extension and side stepping with therapy band next treatment date. Physical Therapy Plan Frequency and Duration Frequency of Treatment 1-2x/wk Duration of treatment (weeks) 8 Plan of Care Start Date 06/15/24 Plan of Care End Date 08/15/24 Therapeutic Interventions Therapeutic Interventions Balance Training,Canalithic Repositioning,Coordination Training,Gait Training,Home Exercise Program,Joint Mobilizations,Manual Therapy, Neuromuscular Re-education, Patient/Caregiver Education, Self-Care/Home Management, Sensory Integration,Soft Tissue Mobilization,Taping, Therapeutic Activities, Therapeutic Exercises, Vestibular Rehabilitation Modalities Cold Pack/Ice Massage,Hot Packs Other Referrals/Consults Referrals/Consults Recommended Follow-up with Dr. Ba about blood pressure and vascular history Next Visit Focus/Plan Next Note Type Treatment Note Next Visit Plan Two visits left. Check BP and progress gentle core strengthening in hook lying and a few standing strengthening exercises for hip extension and abduction ( side stepping if safe) with therapy band.
--- NOTE | 2024-07-06 08:15 | PT.OTN ---
Current Diagnoses Low back pain, unspecified (07/06/24) Unsteadiness on feet (07/06/24) Other abnormalities of gait and mobility (07/06/24) Physical Therapy Treatment Note PT-OP-A Visit Information Start: 05/17/24 07:20 Freq: Status: Active Protocol: Document 07/06/24 07:29 SP (Rec: 07/06/24 08:18 SP [id number]) Out-Patient Physical Therapy Visit Information Visit Information Visit Type Treatment Note Visit Note Medicare, [employer] Life Next progress note by 07/15/24 Visit Start Time 07:35 Visit Stop Time 08:15 Visit Number 12 Number of DIGITAL ACCOUNT SUPERVISOR Visits 1 Evaluation Information Evaluation Date 05/17/24 Precautions Precautions Recent PE 05/03/24, [place] right LE completely occluded as far as PVD. Work on alignment, stretches and balance and not cardio given vascular issues. Pt is on blood thinner. PT-OP-B Current Condition Start: 05/17/24 07:20 Freq: Status: Active Protocol: Document 05/17/24 09:45 MB (Rec: 05/17/24 10:13 MB [id number]) Current Condition History of Current Condition Onset Date Back pain started 6 months ago Current Complaints A little bit of back pain and not wanting to do a lot, apathy History of Current Condition Pt reports 2/10 LBP. 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 Pt also takes a statin. Pt and states that his balance has been getting worse . Pt and report concern for apathy and he has had depression in the past but they don't see it now. 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 Pt is working in the yard, pouring concrete, working on the shed. They pay someone to mow lawn. Pt states that he started sitting more in recliner 6 months ago and that can be correlated with increased in LBP. His back pain has been better with moving more. Prior Treatments and Tests Brain, arterial and chest diagnostics in the past Treatment Goals Patient/Caregiver Goals To make improvements with balance and pain PT-OP-C Subjective Start: 05/17/24 07:20 Freq: Status: Active Protocol: Document 07/06/24 07:29 SP (Rec: 07/06/24 08:18 SP [id number]) OP-PT Subjective Patient Comments Patient Comments PT tx start time late due to firedrill. Pt reports hypertensive BP 150 /113 this am sitting with arm resting on table. Pt reports his back pain has almost full receided but very concerned about his balance and zigzag walking. PT-OP-D Balance Start: 05/17/24 07:20 Freq: Status: Active Protocol: Document 05/17/24 09:45 MB (Rec: 05/17/24 11:05 MB [id number]) Balance Tests Other Other Balance Tests Performed Standing in socks: Romberg with close superv and assistance to get into position and LOB to left x2 with Romberg with EC, pt cannot get into Tandem B with assistance without LOB PT-OP-G Mobility & Gait Start: 05/17/24 07:20 Freq: Status: Active Protocol: Document 05/17/24 09:45 MB (Rec: 05/17/24 11:05 MB [id number]) OP Gait Assessment Comments Gait Comments Slow gait noted PT-OP-H Neuro Start: 05/17/24 07:20 Freq: Status: Active Protocol: Document 07/06/24 07:29 SP (Rec: 07/06/24 08:18 SP [id number]) Vital Signs Comments Vital Signs Comments Orthostatics L UE automated BP : supine: 178/94 HR64 standin/86 HR 70 Nonsymptomatic supine after gentle TA ther ex : 158/100 HR 60 PT-OP-J Posture/Palpation/Skin Start: 05/17/24 07:20 Freq: Status: Active Protocol: Document 05/17/24 09:45 MB (Rec: 05/17/24 11:05 MB [id number]) Posture Evaluation Comments Posture Comments Posture standing in socks: B rounded shoulders, decreased cervical lordosis and upper thoracic kyphosis and then curvature changes and reverses posteriorly T4-7 area and this is close to pt's origin of 3/10 pain, right iliac crest is mildly higher than the left. Pt imbalanced in standing with rigid spine and so PT does not push lumbar or thoracic mobility testing today in standing or sitting. PT-OP-M Strength Start: 05/17/24 11:05 Freq: Status: Active Protocol: Document 05/17/24 09:45 MB (Rec: 05/17/24 11:10 MB [id number]) Hip Strength Hip Manual Muscle Testing Left Flexion (L2) 4+ Good+ Right Flexion (L2) 4 Good Comments LE MMT performed in sitting today Knee Strength Knee Manual Muscle Testing Bilateral Flexion (S2) 5 Normal Extension (L3) 5 Normal Ankle/Foot Strength Ankle and Foot Manual Muscle Testing Bilateral Dorsiflexion (L4) 5 Normal Toe Strength Toe Manual Muscle Testing Left Great Toe Extension 5 Normal Right Great Toe Extension 5 Normal PT-OP-Q Treatments Start: 05/17/24 07:20 Freq: Status: Active Protocol: Document 07/06/24 07:29 SP (Rec: 07/06/24 08:18 SP [id number]) Therapeutic Exercises Supine Exercises Log rolling Comments Ed pt to bend knees and roll over on side before sitting up Gentle core progression in hook lying Supine Exercise Name Knee rocking, HS, mini march and knee fall out Side bilateral Reps/Minutes 20 reps alternating Comments Set position pelvic tilt and abdominal drawing in, count for breath Standing Exercises resisted side stepping Standing Exercise Name trialed in PT Side bilateral Resistance Tb #2 teal at shins Equipment Used near rail for contact safety- used x2 instances Reps/Minutes 15 ft x2 laps Comments cued slow eccentric trailing LE resisted extension Standing Exercise Name added to HEP Side bilateral Resistance TB #2 teal at shins Equipment Used contact counter Reps/Minutes 2x15 Comments cued tall posture, slow pacing eccentric control resisted abduction Standing Exercise Name added to HEP Side bilateral Resistance TB #2 teal at shins Equipment Used contact counter Reps/Minutes 2x15 Comments cued tall posture, slow pacing eccentric control Neuro Re-Education Treatment Balance Activities hallway wall walking Details fwd, bwd Equipment finger glide wall Reps/Duration 20 ft 3 laps EO Comments EO fwd/bwd EO head turns challenge cued rhomboid & TA midline upper body improved stability Self-Care/Home Management Treatment Education Patient Education Safety Other Education Discussed calling Dr Ba and give feedback elevated BPs. See vitals taken during tx. Discussion awareness of elongated midline upper trunk posture when walking to decrease lateral wt shift lean thus support improved stabillity, suggested show and ask her let him know when lateral wt shift for self awareness corrections. PT-OP-T Assessment and Plan Start: 05/17/24 07:20 Freq: Status: Active Protocol: Document 07/06/24 07:29 SP (Rec: 07/06/24 08:18 SP [id number]) Physical Therapy Assessment Goals 4 Impairment Lack of HEP Mcc Goal (LTG) Pt will perform progressive HEP with I including pelvic realignment exercises, gentle flexibility and strengthening and balance exercises to improve alignment, pain and balance. 06/07/24: Pt is performing pelvic realignment exercises, 3 stretches, STS and ankle eversion and DF strengthening in sitting 06/15/24: Pt is doing his exercises and he feels they are useful, especially the stretching ones LTG Duration 8 weeks 2 Impairment Slower gait speed observed, history PVD Mcc Goal (LTG) Pt will gait train at least 1400 feet in 6 minutes to improve community ambulation functional balance in the community. 06/07/24: Pt gait trains 1354 feet in 6 minutes 06/15/24: LTG Duration 8 weeks 1 Impairment Evidence of imbalance [employer] Asc[employer] Consultant Goal (LTG) Pt will perform WNLs on FGA to decrease fall risk. 06/15/24 Score is 12/30 LTG Duration 8 weeks Progress Towards Goals Progress Towards Goals Slow Progress due to Medical Issues Progress Comments Vitals 07/06/24: Orthostatics L UE automated BP : supine: 178/94 HR64 standin/86 HR 70 Nonsymptomatic supine after gentle TA ther ex : 158/100 HR 60 Assessment Summary Assessment Pt continues to have elevated systolic and dyiastolic at rest and more with activity, discussed concerned and please call Dr Ba for further assessment for safety. Forgot to record standing BP end tx after standing ex. Intiated standing resisted hip ext and abduction for core and hip strengthening to support progression gait stability. Reviewed fwd/bwd walking with finger glide on wall with cues safety contact stability. Cues for elongated posturing to support midline upper body egagement of scapular complex and TA draw in for eccentric LE advancement with feet little more apart with improvement in midline stability while touch glide wall for success. Discussion awareness of elongated midline upper trunk posture when walking to decrease lateral wt shift thus support improved stabillity, suggested show and ask her let him know when lateral wt shift for self awareness corrections. Unable to progress more active standing activities due to hypertensive BPs, highest take supine after gentle ther ex: 158/100 HR 60. Physical Therapy Plan Frequency and Duration Frequency of Treatment 1-2x/wk Duration of treatment (weeks) 8 Plan of Care Start Date 06/15/24 Plan of Care End Date 08/15/24 Therapeutic Interventions Therapeutic Interventions Balance Training,Canalithic Repositioning,Coordination Training,Gait Training,Home Exercise Program,Joint Mobilizations,Manual Therapy, Neuromuscular Re-education, Patient/Caregiver Education, Self-Care/Home Management, Sensory Integration,Soft Tissue Mobilization,Taping, Therapeutic Activities, Therapeutic Exercises, Vestibular Rehabilitation Modalities Cold Pack/Ice Massage,Hot Packs Other Referrals/Consults Referrals/Consults Recommended Follow-up with Dr. Ba about blood pressure and vascular history Next Visit Focus/Plan Next Note Type Treatment Note Next Visit Plan 1 visit left. Check BP and progress gentle core strengthening in hook lying, recheck added standing strengthening exercises for hip extension and abduction ( add side stepping if safe to do home) with therapy band.
--- NOTE | 2024-07-11 09:05 | PT.OTN ---
Current Diagnoses Low back pain, unspecified (07/11/24) Unsteadiness on feet (07/11/24) Other abnormalities of gait and mobility (07/11/24) Physical Therapy Treatment Note PT-OP-A Visit Information Start: 05/17/24 07:20 Freq: Status: Active Protocol: Document 07/11/24 07:33 MB (Rec: 07/11/24 08:15 MB [id number]) Out-Patient Physical Therapy Visit Information Visit Information Visit Type Treatment Note Visit Note Medicare, for Life Visit Start Time 07:33 Visit Stop Time 08:13 Visit Number 13 Number of FUNDING ANALYST Visits 0 Evaluation Information Evaluation Date 05/17/24 Precautions Precautions Recent PE 05/03/24, [place] right LE completely occluded as far as PVD. Work on alignment, stretches and balance and not cardio given vascular issues. Pt is on blood thinner. PT-OP-B Current Condition Start: 05/17/24 07:20 Freq: Status: Active Protocol: Document 05/17/24 09:45 MB (Rec: 05/17/24 10:13 MB [id number]) Current Condition History of Current Condition Onset Date Back pain started 6 months ago Current Complaints A little bit of back pain and not wanting to do a lot, apathy History of Current Condition Pt reports 2/10 LBP. 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 Pt also takes a statin. Pt and states that his balance has been getting worse . Pt and report concern for apathy and he has had depression in the past but they don't see it now. 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 Pt is working in the yard, pouring concrete, working on the shed. They pay someone to [employer]. Pt states that he started sitting more in recliner 6 months ago and that can be correlated with increased in LBP. His back pain has been better with moving more. Prior Treatments and Tests Brain, arterial and chest diagnostics in the past Treatment Goals Patient/Caregiver Goals To make improvements with balance and pain PT-OP-C Subjective Start: 05/17/24 07:20 Freq: Status: Active Protocol: Document 07/11/24 07:33 MB (Rec: 07/11/24 08:15 MB [id number]) OP-PT Subjective Patient Comments Patient Comments Pt feels like his back is better since starting PT. His balance is much better. Pt forgot his hearing aides. present during treatment and she states he does not know how to adjust his hearing aides well. PT-OP-D Balance Start: 05/17/24 07:20 Freq: Status: Active Protocol: Document 05/17/24 09:45 MB (Rec: 05/17/24 11:05 MB [id number]) Balance Tests Other Other Balance Tests Performed Standing in socks: Romberg with close superv and assistance to get into position and LOB to left x2 with Romberg with EC, pt cannot get into Tandem B with assistance without LOB PT-OP-G Mobility & Gait Start: 05/17/24 07:20 Freq: Status: Active Protocol: Document 05/17/24 09:45 MB (Rec: 05/17/24 11:05 MB [id number]) OP Gait Assessment Comments Gait Comments Slow gait noted PT-OP-H Neuro Start: 05/17/24 07:20 Freq: Status: Active Protocol: Document 07/06/24 07:29 SP (Rec: 07/06/24 08:18 SP [id number]) Vital Signs Comments Vital Signs Comments Orthostatics L UE automated BP : supine: 178/94 HR64 standin/86 HR 70 Nonsymptomatic supine after gentle TA ther ex : 158/100 HR 60 PT-OP-J Posture/Palpation/Skin Start: 05/17/24 07:20 Freq: Status: Active Protocol: Document 05/17/24 09:45 MB (Rec: 05/17/24 11:05 MB [id number]) Posture Evaluation Comments Posture Comments Posture standing in socks: B rounded shoulders, decreased cervical lordosis and upper thoracic kyphosis and then curvature changes and reverses posteriorly T4-7 area and this is close to pt's origin of 3/10 pain, right iliac crest is mildly higher than the left. Pt imbalanced in standing with rigid spine and so PT does not push lumbar or thoracic mobility testing today in standing or sitting. PT-OP-M Strength Start: 05/17/24 11:05 Freq: Status: Active Protocol: Document 05/17/24 09:45 MB (Rec: 05/17/24 11:10 MB [id number]) Hip Strength Hip Manual Muscle Testing Left Flexion (L2) 4+ Good+ Right Flexion (L2) 4 Good Comments LE MMT performed in sitting today Knee Strength Knee Manual Muscle Testing Bilateral Flexion (S2) 5 Normal Extension (L3) 5 Normal Ankle/Foot Strength Ankle and Foot Manual Muscle Testing Bilateral Dorsiflexion (L4) 5 Normal Toe Strength Toe Manual Muscle Testing Left Great Toe Extension 5 Normal Right Great Toe Extension 5 Normal PT-OP-Q Treatments Start: 05/17/24 07:20 Freq: Status: Active Protocol: Document 07/11/24 07:33 MB (Rec: 07/11/24 08:15 MB [id number]) Gait Training Gait Activity 6MWT Comments Performed today and pt gait trains 1405 feet in 6 minutes. He gait trains with wide DOLLY, occ decreased foot clearance and functionally shorter on right LE, stiffness in lumbar spine and pelvis, increased lateral movement trunk and arms Self-Care/Home Management Treatment Education Other Education Education about: figure out how to use hearing aides and use all the time, follow-up with Dr. Ba about high BP and vascular issues. Discussion about vaping and encouragement to talke with doctor about other options to help quite nicotine vaping, ed to con't HEP. Ed to pt and PT-OP-T Assessment and Plan Start: 05/17/24 07:20 Freq: Status: Active Protocol: Document 07/11/24 07:33 MB (Rec: 07/11/24 08:15 MB [id number]) Physical Therapy Assessment Goals 4 Impairment Lack of HEP Lead Systems Architect Goal (LTG) Pt will perform progressive HEP with I including pelvic realignment exercises, gentle flexibility and strengthening and balance exercises to improve alignment, pain and balance. 06/07/24: Pt is performing pelvic realignment exercises, 3 stretches, STS and ankle eversion and DF strengthening in sitting 06/15/24: Pt is doing his exercises and he feels they are useful, especially the stretching ones 07/11/24 Pt is performing exercises including alignment, flexibility, balance and strengthening LTG Duration 8 weeks 2 Impairment Slower gait speed observed, history PVD Lead Systems Architect Goal (LTG) Pt will gait train at least 1400 feet in 6 minutes to improve community ambulation functional balance in the community. 06/07/24: Pt gait trains 1354 feet in 6 minutes 06/15/24: Pt gait trains 1405 feet in 6 minutes, goal met LTG Duration Surpassed 1 Impairment Evidence of imbalance Lead Systems Architect Goal (LTG) Pt will perform WNLs on FGA to decrease fall risk. 06/15/24 Score is 1230 07/11/24 Deferred on d/c date d /t need to provide pt and education and he has FGA balance exercises for home LTG Duration 8 weeks Assessment Summary Assessment Pt has met HEP and 6MWT goals. He con't with balance challenges and PT feels may partially be related to vascular and hearing issues. ? neuropathic changes or issues d/t vascular changes. BP and HR in LUE: supine 161/89, 61; standing 132/82, 63; standing 1': 153/85, 67. states that pt is vaping nicotine. After gait, HR and O2 sats are 72 BPM, 99%. BP and HR in RUE 168/88, 68 after gait. states that pt to have repeat CT on 07/22 to reassess PE. Recommend follow-up with Dr. Ba about BP and vascular issues, concerns about vaping. Will d/c this PT course and pt may benefit from further PT in the future. Physical Therapy Plan Frequency and Duration Frequency of Treatment 1-2x/wk Duration of treatment (weeks) 8 Plan of Care Start Date 06/15/24 Plan of Care End Date 08/15/24 Therapeutic Interventions Therapeutic Interventions Balance Training,Canalithic Repositioning,Coordination Training,Gait Training,Home Exercise Program,Joint Mobilizations,Manual Therapy, Neuromuscular Re-education, Patient/Caregiver Education, Self-Care/Home Management, Sensory Integration,Soft Tissue Mobilization,Taping, Therapeutic Activities, Therapeutic Exercises, Vestibular Rehabilitation Modalities Cold Pack/Ice Massage,Hot Packs Other Referrals/Consults Referrals/Consults Recommended Follow-up with Dr. Ba about blood pressure and vascular history Next Visit Focus/Plan Next Note Type Treatment Note
== END 2024-07-14 14:09 | disposition home or self-care (01) ==
LOC: PHYS 07:30
PROVIDERS: Family Provider Family Medicine; PCP Family Medicine; Referring Provider Family Medicine; Visit Provider Family Medicine
DX: R26.89 Other abnormalities of gait and mobility (principal); R26.81 Unsteadiness on feet; M54.50 Low back pain, unspecified
CPT/HCPCS: 97110; 97112; 97116; 97140; 97161; 97535

== ENCOUNTER → 2024-07-19 10:22 | Outpatient (CLI) | payer MEDICARE, OTHER, SELFPAY ==
[2024-07-19 12:28] LABS: Alanine Aminotransferase 45 IU/L (<50); Albumin 4.2 g/dL (3.5-5.0); Albumin Globulin Ratio 1.3 (1.0-2.8); Alkaline Phosphatase 84 U/L (38-126); Aspartate Aminotransferase 34 IU/L (17-59); BUN Creatinine Ratio 23.6 (6-22); Bilirubin Total 0.9 mg/dL (0.2-1.3); Blood Urea Nitrogen 17 mg/dL (9-20); Calcium 9.5 mg/dL (8.4-10.2); Carbon Dioxide 29 mmol/L (22-32); Chloride 105 mmol/L (98-107); Estimated Glomerular Filt Rate > 60 mL/min (>60); Globulin 3.3 g/dL (1.7-4.1); Glucose 99 mg/dL (80-110); HEMOLYSIS < 15 (0-50); Potassium 4.3 mmol/L (3.4-5.1); Sodium 139 mmol/L (137-145); Total Protein 7.5 g/dL (6.3-8.2)
[2024-07-19 13:37] LABS: Vitamin B12 997 pg/mL (239-931)
== END ==
LOC: LAB 10:23
PROVIDERS: Physician Assistant; Family Provider Family Medicine; PCP Family Medicine; Referring Provider Family Medicine; Visit Provider Family Medicine
DX: R26.89 Other abnormalities of gait and mobility (principal); R91.1 Solitary pulmonary nodule
CPT/HCPCS: 36415; 80053; 82607

== ENCOUNTER → 2024-07-26 10:14 | Outpatient (CLI) | payer MEDICARE, OTHER, SELFPAY ==
--- NOTE | 2024-07-26 10:17 | DI.RAD.S_ITS ---
PROCEDURE: XR THORACIC SPINE 3V INDICATIONS: Low back pain radiates to abdomen; Low thoracic pain TECHNIQUE: 3 views of the thoracic spine were acquired. COMPARISON: None. FINDINGS: Thoracic spine curvature and alignment: Normal. Bones: There are no osseous abnormalities. Disc spaces: Mild degenerative disc disease seen throughout the midthoracic spine. Intervertebral foramen: Grossly normal in width. Soft tissues: No soft tissue swelling, calcification or mass. IMPRESSION: Mild degenerative disc disease midthoracic spine. Moderate C5-6 and severe C6-7 degenerative disc disease incompletely imaged Dictated by: Avtar Escobar M.D. on 07/27/2024 at 10:28 Approved by: Avtar Escobar M.D. on 07/27/2024 at 10:30
--- NOTE | 2024-07-26 10:17 | DI.RAD.S_ITS ---
PROCEDURE: XR LUMBAR SPINE MIN 4V INDICATIONS: Low back pain radiates to abdomen; Low thoracic pain TECHNIQUE: 5 views of the lumbar spine acquired, including flexion and extension views. COMPARISON: None. FINDINGS: Lumbar spine curvature and alignment: Grade 1 L5-S1 spondylolisthesis due to degenerate facet disease appreciated. Bones: There are no osseous abnormalities. Disc spaces: Moderate L3-4, severe L4-5 and mild L5-S1 degenerative disc disease noted. Moderate L4-5 and severe L5-S1 degenerative facet disease also noted. Intervertebral foramen: Grossly normal in width. Soft tissues: No soft tissue swelling, calcification or mass. IMPRESSION: Degeneration Dictated by: Avtar Escobar M.D. on 07/27/2024 at 10:40 Approved by: Avtar Escobar M.D. on 07/27/2024 at 10:42
== END ==
PROVIDERS: Family Provider Family Medicine; PCP Family Medicine; Referring Provider Physician Assistant; Visit Provider Physician Assistant
DX: M51.34 Other intervertebral disc degeneration, thoracic region (principal); M50.322 Other cervical disc degeneration at C5-C6 level; M47.816 Spondylosis without myelopathy or radiculopathy, lumbar region; M47.817 Spondylosis without myelopathy or radiculopathy, lumbosacral region; M51.360 Other intervertebral disc degeneration, lumbar region with discogenic back pain only; M51.370 Other intervertebral disc degeneration, lumbosacral region with discogenic back pain only; I48.91 Unspecified atrial fibrillation
CPT/HCPCS: 72072; 72110

== ENCOUNTER → 2024-08-08 08:16 | Outpatient (CLI) | payer MEDICARE, OTHER, SELFPAY ==
--- NOTE | 2024-08-08 | DI.CT.S_ITS ---
PROCEDURE: CT ANGIO CHEST PE PROTOCOL INDICATIONS: Other pulmonary embolism without acute cor pulmonale TECHNIQUE: After the administration of intravenous contrast, 2 mm thick sections acquired from the pulmonary apices to the posterior costophrenic angles. 3-dimensional maximum intensity projection (MIP) coronal and sagittal reformats were then acquired through the thorax. For radiation dose reduction, the following was used: automated exposure control, adjustment of mA and/or kV according to patient size. COMPARISON: [facility], CT, CT CHEST ABD PEL W CON, 05/03/2024, 9:05. FINDINGS: Image quality: Diagnostic. Pulmonary arteries: The previously seen right lower lobe pulmonary emboli demonstrate a more chronic appearance, with mural adhesion. No evidence of acute pulmonary embolus is present. Lower Neck: No enlarged lymph nodes. Thyroid: No thyroid nodules which require sonographic follow up, per consensus guidelines. Axillae: No enlarged lymph nodes. Chest Wall: Unremarkable. Bones: Unremarkable. Lungs and Pleura: No pneumothorax or pleural effusions. No evidence of pneumonia or edema. There is moderate apically predominant emphysema. Biapical scarring is present. There is mild reticulonodular opacity within the right upper lobe laterally. The previously seen subpleural nodule within the right lower lobe laterally has increased in size, currently measuring 21 mm (image 198). There is increased moderate patchy reticulonodular opacity within the right lung base. Heart: Heart size is normal. No pericardial effusion. Calcification of the coronary vasculature is present. Thoracic Vessels: No aortic aneurysm. Mediastinum and Kirstie: No enlarged lymph nodes. Esophagus: No wall thickening. No hiatal hernia. Upper Abdomen: Visualized upper abdomen solid organs and bowel loops appear normal. IMPRESSION: 1. The right lower lobe pulmonary emboli now demonstrate a more chronic appearance. 2. Increased right lower lobe nodule. Further assessment with PET-CT or biopsy is recommended. 3. Increased right basilar and right upper lobe densities, possibly indicating infection. 4. Coronary artery disease. Dictated by: Alexi Cook M.D. on 08/09/2024 at 14:11 Approved by: Alexi Cook M.D. on 08/09/2024 at 14:23
== END ==
PROVIDERS: Family Provider Family Medicine; PCP Family Medicine; Referring Provider Family Medicine; Visit Provider Family Medicine
DX: I26.99 Other pulmonary embolism without acute cor pulmonale (principal); R91.1 Solitary pulmonary nodule; I25.10 Atherosclerotic heart disease of native coronary artery without angina pectoris
CPT/HCPCS: 71275; Q9967

== ENCOUNTER 2024-08-29 07:46 | Outpatient (CLI) | payer MEDICARE, OTHER, SELFPAY ==
--- NOTE | 2024-08-29 07:49 | DI.CT.S_ITS ---
PROCEDURE: CT CHEST WO CON INDICATIONS: growing Right Lower Lobe nodule TECHNIQUE: Noncontrast 5 mm thick sections acquired from the pulmonary apices to the posterior costophrenic angles. 1 mm lung window, 5 mm thick coronal and sagittal and 7 mm axial MIP reformats were then acquired. For radiation dose reduction, the following was used: automated exposure control, adjustment of mA and/or kV according to patient size. COMPARISON: [facility], CT, CT ANGIO CHEST PE PROTOCOL, 08/08/2024, 8:29. [facility], CT, CT CHEST WO CON, 05/20/2019, 9:29. FINDINGS: Image quality: Diagnostic. Limited exam. Right lower lobe mass measures 14 x 11 mm compared to 24 x 16 mm. This is compared to 08/08/2024. No new areas of nodularity are identified. Emphysematous changes are present. IMPRESSION: Limited exam demonstrating interval decrease in size of previously identified pulmonary mass. Given patient's high risk for pneumothorax in decreased size of lesion, biopsy was canceled. PET scan is recommended and if overall appearance remains concerning, re-biopsy may be revisited. The above findings were discussed with Dr. Megan Ba on 08/29/2024. Dictated by: Sabine Acevedo M.D. on 08/29/2024 at 16:22 Approved by: Sabine Acevedo M.D. on 08/29/2024 at 16:25
[2024-08-29 08:00] VITALS: BP 164/94; PULSE 61; RESP 18; TEMP 36.4; O2SAT 92
[2024-08-29 08:30] LABS: Hematocrit 44.1 % (41-53); Hemoglobin 14.6 g/dL (13.5-17.5); Mean Corpuscular HGB Conc 33.2 % (30-36); Mean Corpuscular Hemoglobin 32.7 PG (26-34); Mean Corpuscular Volume 98.6 fL (80-100); Platelet Count 151 X10^3/uL (150-400); Red Blood Cell Count 4.47 X10^6/uL (4.5-5.9); Red Cell Distribution Width 15.1 % (11.6-14.8); White Blood Cell Count 7.1 X10^3/uL (4.5-11.0)
[2024-08-29 08:37] LABS: INR 1.1 (0.9-1.3); Prothrombin Time 12.5 SECONDS (9.4-12.5)
[2024-08-29 09:30] VITALS: BP 167/79; PULSE 79; RESP 20; O2SAT 94
== END 2024-08-29 09:30 | disposition home or self-care (01) ==
LOC: CT 07:49
PROVIDERS: Radiology Neuroradiology; Family Provider Family Medicine; PCP Family Medicine; Referring Provider Family Medicine; Visit Provider Family Medicine
DX: R91.1 Solitary pulmonary nodule (principal)
CPT/HCPCS: 71250; 85027; 85610; J2250; J3010

== ENCOUNTER → 2024-10-27 06:40 | Outpatient (CLI) | payer MEDICARE, OTHER, SELFPAY ==
--- NOTE | 2024-10-27 06:45 | DI.MRI.S_ITS ---
PROCEDURE: MR THORACIC SPINE WO/W CON INDICATIONS: pulm nodule, please evaluate for metastasis TECHNIQUE: Noncontrast sagittal T1 spin echo and T2 fast spin echo, sagittal STIR, axial T1 and T2 fast spin echo through the thoracic spine. After the administration of contrast, axial and sagittal T1 spin echo with fat saturation through the thoracic spine. COMPARISON: [facility], CT, CT CHEST WO CON, 08/29/2024, 9:09. [facility], CT, CT ANGIO CHEST PE PROTOCOL, 08/08/2024, 8:29. FINDINGS: Image quality: This examination is limited by involuntary motion artifact. Alignment and curvature: Accentuated thoracic kyphosis is seen. No focal AP alignment abnormality is seen. Marrow: Marrow is of normal overall signal. No acute vertebral body compression fractures. Within the mid thoracic spine at T7 through T9, minimal anterior wedge deformities are seen, without acute features. Spinal cord: Visualized spinal cord is of normal signal and size, without abnormal enhancement. Paraspinous soft tissues: No paravertebral masses or abnormal enhancement. There is a trace Miscellaneous: Generalized degenerative changes are seen. A few levels of [id number] neural foraminal narrowing can be seen within the mid to lower thoracic spine. No significant central canal narrowing can be seen. IMPRESSION: No findings of thoracic spine metastatic disease are detected. No abnormal enhancement is seen. Trace right-sided pleural effusion noted. Generalized degenerative changes are seen. Dictated by: Chandana Chapman M.D. on 10/27/2024 at 10:05 Approved by: Chandana Chapman M.D. on 10/27/2024 at 10:08
== END ==
LOC: MRI 06:44
PROVIDERS: Family Provider Family Medicine; PCP Family Medicine; Referring Provider Family Medicine; Visit Provider Family Medicine
DX: C41.2 Malignant neoplasm of vertebral column (principal); R91.1 Solitary pulmonary nodule; I26.99 Other pulmonary embolism without acute cor pulmonale; M48.04 Spinal stenosis, thoracic region; F17.220 Nicotine dependence, chewing tobacco, uncomplicated; M54.6 Pain in thoracic spine; M54.50 Low back pain, unspecified
CPT/HCPCS: 72157; A9579

== ENCOUNTER 2025-02-24 09:03 | Day surgery (SDC) | payer MEDICARE, OTHER, SELFPAY ==
--- NOTE | 2025-02-24 | PATH_ITS ---
[facility] Accession Number: [id number] No. of containers..01 Tissue . 01 Material submitted: . colon - COLON,DESCENDING POLYP . 01 Diagnosis: DESCENDING COLON POLYP: Hyperplastic polyp. MRV 03/02/2025 1242 Local . 01 Electronically signed: . Debbie Parekh MD, Pathologist NPI- [id number] . 01 Gross description: . COLON,DESCENDING POLYP: Received in formalin is 1 fragment(s) of hunter, soft tissue measuring 0.6 x 0.5 x 0.3 cm submitted entirely in 1 cassette(s) /RENNY 02/27/20252032 Local . 01 Pathologist provided ICD-10: D12.3 . 01 CPT . 892431 Specimen Comment: A courtesy copy of this report has been sent to [phone] Performed at: [address] [facility] [id number] MD Jimi Cedeño MD Phone: [phone]
[2025-02-24] MEDS: LACTATED RINGERS 1,000 ML 150 ML IV (09:20)
[2025-02-24 09:32] VITALS: BP 157/85; PULSE 66; RESP 18; TEMP 36.1; O2SAT 99
--- NOTE | 2025-02-24 09:54 | PM.HP.IH.1 ---
History of Present Illness History of Present Illness Date Patient Seen: 02/24/25 Time Patient Seen: 09:54 Chief complaint: EGD/Colonoscopy Narrative: Guzman is an 84-year-old man who presents for an EGD and a colonoscopy. He did have an abnormal PET scan recently that showed activity around the anal area. He does not recall any rectal bleeding or melena. He did start to have low back pain last fall. [facility] Medical History (Updated 01/25/25 @ 16:53 by Megan Ba DO) External hemorrhoids Wears glasses Chronic cough Substance abuse Peripheral neuropathy (~2018) Foot pain Shingles (~1999) Mumps Measles Chicken pox Hearing loss (~2019) Cataracts, bilateral (~2014) Peripheral vascular disease (~2018) Centrilobular emphysema Tobacco dependence with current use Dysphagia Depression Obstructive sleep apnea of adult (~1984) Snoring Surgical History Anesthesia Spermatocele History of tonsillectomy and adenoidectomy (~1992) History of umbilical hernia repair Family History Father Cancer Mother History of heart disease Bronchiectasis Brother Cancer Sister Hughes's disease Multiple sclerosis Breast cancer Sister Cancer Sister Breast cancer Social History marital status: details: oli Centeno, lives in [place] household members: spouse lives independently: Yes caregiver/support person: No occupational status: previously employed Smoking Status: Current every day smoker Tobacco: How many years used: 60 quit status: considering quitting alcohol intake: current substance use type: does not use Meds Home Medications and Allergies Home Medications Medication Instructions Recorded Confirmed Type Respironics [employer] BIPAP #1 ea 11/30/18 01/25/25 History cholecalciferol (vitamin D3) 50 50 mcg PO DAILY 08/21/23 02/24/25 History mcg (2,000 unit) capsule vitamin E acetate 180 mg PO DAILY 08/21/23 02/24/25 History atorvastatin 40 mg tablet 40 mg PO DAILY #90 tabs 05/11/24 02/24/25 Rx mecobalamin (vitamin B12) 3,000 mcg PO DAILY 07/19/24 02/24/25 History apixaban 5 mg tablet 5 mg PO BID #180 tabs 08/15/24 02/24/25 Rx metoprolol succinate 25 mg 12.5 mg (1/2 x 25 mg) PO DAILY #45 08/15/24 02/24/25 Rx tablet,extended release 24 hr tabs Allergies Allergy/AdvReac Type Severity Reaction Status Date / Time Sulfa (Sulfonamide Allergy Mild ITCHING Verified 02/24/25 09:21 Antibiotics) Exam Vital Signs (past 8 hours): - 02/24/25 09:32 Temperature 97.0 F L Pulse Rate 66 Respiratory Rate 18 Blood Pressure 157/85 H Pulse Oximetry 99 Oxygen Delivery Method Room Air Oxygen Delivery Method Room Air Const General: No acute distress Assessment & Plan Assessment and plan (1) Perianal lesion: Status: Acute Plan EGD and colonoscopy Time-Based Coding :: [TOTAL MINUTES] spent with patient and on the chart (including review of chart, obtaining history, exam, reviewing outside data, placing orders, documenting exam and treatment plan, and counseling patient) on [DATE]. PROFEE Radiology Physician Document charge(s): No
[2025-02-24 10:31] VITALS: BP 132/69; PULSE 75; RESP 13; TEMP 36.2; O2SAT 94
--- NOTE | 2025-02-24 10:33 | PM.OP.EC ---
Operative Date/Time/Diagnoses Date of procedure: 02/24/25 Time of procedure: 10:33 Pre-op diagnosis: Abnormal imaging Post-op diagnosis: same Procedure & Clinicians Study performed: EGD and colonoscopy Same procedure as scheduled: Yes Surgeon: Pasquale Morgan Procedure Notes Procedure in detail: Surgeon: Pasquale Morgan MD Anesthesia: Katharina Winchester CRNA Procedure in detail: A timeout was performed. A bite blocked was placed and monitors were attached to the patient. The patient was positioned in the left lateral decubitus position. Sedation was administered. Once the patient was sedated the endoscope was inserted through the bite block and passed through the esophagus and stomach and into the duodenum. There were no gross abnormalities in the duodenum. We then withdrew the scope into the stomach. There were no obvious lesions in the stomach. The endoscope was retroflexed and no masses were seen at the GE junction. The endoscope was straightned and withdrawn into the esophagus. There were no esophageal masses. EGD findings: Grossly normal EGD Next we repositioned the patient for a colonoscopy. A digital rectal exam was performed and rather significant internal and external hemorrhoids were noted. The colonoscope was inserted and advanced to the cecum. The appendiceal orifice was identified and photographed. The scope was slowly withdrawn over greater than 6 minutes. There was pandiverticulosis. There was a 5 mm polyp in the descending colon removed with a cold snare. The scope was retroflexed in the rectum and internal hemorrhoids were noted. Colonoscopy findings: Pandiverticulosis, 5 mm descending colon polyp and rather significant mixed hemorrhoids Total procedural EBL: 5 mL Scope withdrawal time: 11 minutes Sedation minutes: 29 minutes Post-procedure Disposition: PACU
[2025-02-24 10:36] VITALS: BP 139/76; PULSE 73; RESP 14; O2SAT 99
[2025-02-24 10:41] VITALS: BP 148/79; PULSE 74; RESP 16; O2SAT 99
[2025-02-24 10:50] VITALS: BP 142/72; PULSE 72; RESP 16; TEMP 36.4; O2SAT 98
== END 2025-02-24 11:18 | disposition home or self-care (01) ==
PROVIDERS: Family Provider Family Medicine; PCP Family Medicine; Referring Provider Surgery; Visit Provider Surgery
PROC: 0DJ08ZZ Inspection of Upper Intestinal Tract, Via Natural or Artificial Opening Endoscopic (ICD-10-PCS; CPT 45385; principal; 2025-02-24 10:15)
PROC: 0DJD8ZZ Inspection of Lower Intestinal Tract, Via Natural or Artificial Opening Endoscopic (ICD-10-PCS; CPT 45378; 2025-02-24 10:15)
DX: R93.3 Abnormal findings on diagnostic imaging of other parts of digestive tract (principal); K57.30 Diverticulosis of large intestine without perforation or abscess without bleeding; K64.9 Unspecified hemorrhoids; K63.5 Polyp of colon
CPT/HCPCS: 45385; 43235; J2704

== ENCOUNTER → 2025-04-12 07:37 | Outpatient (CLI) | payer MEDICARE, OTHER, SELFPAY ==
--- NOTE | 2025-04-12 07:43 | DI.US.S_ITS ---
PROCEDURE: US THYROID INDICATIONS: 1 yr thyroid nodule follow up TECHNIQUE: Real-time scanning was performed of the thyroid gland, with image documentation. COMPARISON: [facility], [place], [place] THYROID, 05/06/2024, 15:40. FINDINGS: Thyroid: Right lobe measures 4.5 x 1.9 x 2.3 cm. Left lobe measures 4.6 x 1.6 x 1.9 cm. Isthmus is 0.4 cm thick. Echotexture is homogeneous. Nodule number: 1 Location: Right superior Size: Stable 2.4 x 1.3 x 1.4 cm, previously 2.2 x 1.4 x 1.6 cm. Composition: Solid Echogenicity: Hypoechoic Shape: wider than tall. Margins: Smooth Echogenic foci: None Total points: 4 ACR TI-RADS category: 4, moderately suspicious Nodule number: 2 Location: Right inferior Size: Decreased in size measuring up to 2.2 cm, previously 2.8 cm. Composition: Solid Echogenicity: Hypoechoic Shape: wider than tall. Margins: Irregular Echogenic foci: None Total points: 6 ACR TI-RADS category: 4, moderately suspicious Nodule number: 3 Location: Left inferior Size: Mildly decreased measuring up to 1.6 cm, previously 1.8 cm. Composition: Solid Echogenicity: Hypoechoic Shape: Taller than wide Margins: Ill-defined Echogenic foci: None Total points: 7 ACR TI-RADS category: 5, highly suspicious IMPRESSION: Thyroid nodules as described above are stable or decreased in size compared to prior. Recommend correlation with fine-needle aspiration results. ACR TI-RADS definitions and recommendations: TI-RADS 1 (benign): 0 points. FNA not needed. TI-RADS 2 (not suspicious): 2 points. FNA not needed. TI-RADS 3: 3 points. * FNA if 2.5 cm or larger, follow up if 1.5 cm or larger (at 1, 3, and 5 years). TI-RADS 4: 4-6 points. * FNA if 1.5 cm or larger, follow up if 1 cm or larger (at 1, 2, 3, and 5 years). TI-RADS 5: 7 points or more. * FNA if 1 cm or larger, follow up if 0.5 cm or larger (every year for 5 years). Dictated by: Jaya Rankin M.D. on 04/12/2025 at 10:17 Approved by: Jaya Rankin M.D. on 04/12/2025 at 10:22
== END ==
LOC: US 07:39
PROVIDERS: Family Provider Family Medicine; PCP Family Medicine; Referring Provider Family Medicine; Visit Provider Family Medicine
DX: E04.2 Nontoxic multinodular goiter (principal)
CPT/HCPCS: 76536